=== PATIENT | male | born 1945 | race Caucasian/White ===

== ENCOUNTER 2019-09-25 20:00 | Outpatient (CLI) | payer MEDICARE, BC, SELFPAY | END 2019-09-25 20:01 | disposition home or self-care (01) | LOC: SLEEP 09-26 09:15 | PROVIDERS: Family Provider Electrodiagnostic Medicine; Visit Provider Anesthesiology Pain Medicine | DX: G47.33 Obstructive sleep apnea (adult) (pediatric) (principal) | CPT/HCPCS: 95810 ==

== ENCOUNTER 2019-10-02 09:01 | Outpatient (CLI) | payer MEDICARE, BC, SELFPAY ==
[2019-10-02 09:33] LABS: Basophils % 0.7 %; Eosinophils # 0.3 10^3/uL (0.0-0.8); Eosinophils % 4.9 %; Hematocrit 38.2 % (42.0-52.0); Hemoglobin 11.4 g/dL (11.7-16.6); Lymphocytes # 1.3 10^3/uL (0.8-4.8); Lymphocytes % 22.4 %; Mean Corpuscular HGB Conc 29.8 g/dL (30.0-36.0); Mean Corpuscular Hemoglobin 29.2 pg (28.0-34.0); Mean Corpuscular Volume 97.7 fL (80-94); Mean Platelet Volume 9.6 fL (7.4-10.4); Monocytes # 0.6 10^3/uL (0.2-0.9); Monocytes % 9.4 %; Neutrophils # 3.7 10^3/uL (1.8-7.7); Neutrophils % 62.3 %; Nucleated Red Blood Cells % 0 %; Platelet Count 239 10^3/cmm (130-400); Red Blood Count 3.91 10^6/uL (4.1-5.3); Red Cell Distribution Width 14.9 % (12.1-15.1); White Blood Count 5.9 10^3/uL (4.0-10.0)
[2019-10-02 09:45] LABS: Alanine Aminotransferase 21 U/L (0-41); Albumin Level 3.4 g/dL (3.5-5.2); Alkaline Phosphatase 94 IU/L (40-130); Anion Gap 14.5 (5-19); Aspartate Amino Transferase 19 U/L (0-40); Blood Urea Nitrogen 21 mg/dL (8-23); Carbon Dioxide 25 mmol/L (22-29); Chloride 102 mmol/L (98-107); Globulin 3.5 g/dL (1.3-4.6); Glucose 78 mg/dL (74-106); Potassium 4.5 mmol/L (3.5-5.1); Sodium 137 mmol/L (136-145); Total Bilirubin 0.4 mg/dL (0.15-1.2); Total Protein 6.9 g/dL (6.6-8.7)
== END 2019-10-02 09:02 | disposition home or self-care (01) ==
LOC: ONCMED 09:10
PROVIDERS: Family Provider Electrodiagnostic Medicine; PCP Internal Medicine Cardiovascular Disease; Visit Provider Internal Medicine Hematology & Oncology
DX: C73 Malignant neoplasm of thyroid gland (principal)
CPT/HCPCS: 36415; 80053; 85025

== ENCOUNTER 2019-10-17 20:01 | Outpatient (CLI) | payer MEDICARE, BC, SELFPAY | END 2019-10-17 21:00 | disposition home or self-care (01) | LOC: SLEEP 05-07 11:25 | PROVIDERS: PCP Electrodiagnostic Medicine; Visit Provider Anesthesiology Pain Medicine | DX: G47.33 Obstructive sleep apnea (adult) (pediatric) (principal) | CPT/HCPCS: 95810 ==

== ENCOUNTER 2019-11-03 14:34 | Outpatient (CLI) | payer MEDICARE, BC, SELFPAY ==
--- NOTE | 2019-11-03 14:38 | USCV_ITS ---
Abdullahi Maurice Age: 73 Gender: M : 1945 Exam Date: 11/03/2019 14:54 Ordering Phys: Jacob Barnes XX Technologist: Yaa Armstrong Exam Location: [facility] [place] Indication: CHF BP: / HR: 69 Rhythm: PACED Technical Quality: Technically difficult study MEASUREMENTS (Male / Female) Normal Values 2D ECHO LV Diastolic Diameter PLAX 2.9 cm 4.2 - 5.9 / 3.9 - 5.3 cm LV Systolic Diameter PLAX 2.3 cm LV Chamber Size 3.8 cm IVS Diastolic Thickness 1.7 cm 0.6 - 1.0 / 0.6 - 0.9 cm IVS Systolic Thickness 1.9 cm LVPW Diastolic Thickness 1.3 cm 0.6 - 1.0 / 0.6 - 0.9 cm LVPW Systolic Thickness 1.5 cm RV Chamber Size 4.7 cm LVOT Diameter 2.0 cm LV Ejection Fraction 2D Teich 43.2 % LV Ejection Fraction MOD 2C 57.3 % LV Ejection Fraction 2C AL 62.8 % LA Diameter 5.0 cm LA Width 3.4 cm LA Height 5.9 cm RA Width 5.2 cm RA Height 6.0 cm Aorta at Sinotubular Diameter 3.5 cm M-MODE LV Diastolic Diameter MM 5.2 cm 4.2 - 5.9 / 3.9 - 5.3 cm LV Systolic Diameter MM 3.5 cm LV Ejection Fraction MM Teich 62.1 % IVS Diastolic Thickness MM 1.2 cm 0.6 - 1.0 / 0.6 - 0.9 cm IVS Systolic Thickness MM 1.9 cm LVPW Diastolic Thickness MM 1.5 cm 0.6 - 1.0 / 0.6 - 0.9 cm LVPW Systolic Thickness MM 2.1 cm RV Diastolic Diameter MM 1.8 cm Aortic Annulus Diameter 4.0 cm LA Ao Ratio MM 1.2 MV E Point Septal Separation 0.3 cm DOPPLER AV Peak Velocity 136.0 cm/s LVOT Peak Velocity 80.0 cm/s AV Area Cont Eq vti 1.9 cm squared AV Area Cont Eq pk 1.9 cm squared MV Area PHT 4.4 cm squared Mitral E to A Ratio 3.5 MV E' Velocity 19.0 cm/s Mitral E to MV E' Ratio 7.5 Mitral E to LV E' Lateral Ratio 6.3 Mitral E to LV E' Septal Ratio 9.2 TR Peak Velocity 219.1 cm/s TR Peak Gradient 19.2 mmHg TR Mean Velocity 154.7 cm/s TR Mean Gradient 10.9 mmHg TR Velocity Time Integral 49.0 cm TV Peak E Velocity 97.0 cm/s Right Atrial Pressure 3.0 mmHg Pulmonary Artery Systolic Pressu 22.2 mmHg PV Peak Velocity 60.0 cm/s RV Acceleration Time 0.1 s RV Ejection Time 0.3 s RV AcT/ET 0.4 FINDINGS Left Ventricle Study is poor in quality and difficult. The ventricle is likely normal in size. No obvious wall motion disturbances are noted but visualization is poor. There may be some septal dyssynergy secondary to the underlying bundle branch block rhythm. A rough estimate of the ejection fraction would be 50 to 55%. There is likely grade 2 diastolic dysfunction. Right Ventricle Normal right ventricular size and systolic function. Normal right ventricular systolic pressure. Right Atrium Moderately increased right atrial size. Left Atrium Moderately increased left atrial size. Mitral Valve Mitral valve not well visualized. Aortic Valve Aortic valve not well visualized. Tricuspid Valve Tricuspid valve not well visualized. Pulmonic Valve Pulmonic valve not well visualized. Pericardium Normal pericardium without effusion. Aorta Normal ascending aorta dimension. CONCLUSIONS Study is poor in quality and difficult. The ventricle is likely normal in size. No obvious wall motion disturbances are noted but visualization is poor. There may be some septal dyssynergy secondary to the underlying bundle branch block rhythm. A rough estimate of the ejection fraction would be 50 to 55%. There is likely grade 2 diastolic dysfunction. Moderately increased right atrial size. Moderately increased left atrial size. Previous study was 10 months ago. The study compares favorably. There have been no significant changes. Dr. Pedro Winters MD (Electronically Signed) Final Date: 03 November 2019 18:05 S
== END 2019-11-03 14:35 | disposition home or self-care (01) ==
LOC: US 14:35
PROVIDERS: Family Provider Electrodiagnostic Medicine; PCP Electrodiagnostic Medicine; Visit Provider Electrodiagnostic Medicine
DX: N18.3 Chronic kidney disease, stage 3 (moderate) (principal); I50.31 Acute diastolic (congestive) heart failure; G93.40 Encephalopathy, unspecified; Z85.850 Personal history of malignant neoplasm of thyroid
CPT/HCPCS: 93306

== ENCOUNTER 2019-11-10 16:37 | Outpatient (CLI) | payer MEDICARE, BC, SELFPAY ==
[2019-11-10 18:16] LABS: Urine Appearance Clear (CLEAR); Urine Color Yellow (Yellow)
[2019-11-10 18:17] LABS: Add Urine Culture? Yes; Add Urine Microscopic? YES; Bacteria Urine 1+; Bilirubin Urine Neg (NEGATIVE); Blood Urine 3+ (Negative); Glucose Urine UA Norm (Normal); Ketones Urine Negative (Negative); Leukocyte Esterase Urine Negative (Negative); Nitrate Urine Negative (Negative); Protein Urine Neg (Negative); RBC Urine >100 /hpf (0-2); Urobilinogen Urine Norm (Negative); pH Urine 5 (5-7)
== END 2019-11-10 16:38 | disposition home or self-care (01) ==
LOC: LAB 16:41
PROVIDERS: Family Provider Electrodiagnostic Medicine; PCP Electrodiagnostic Medicine; Visit Provider Electrodiagnostic Medicine
DX: N39.0 Urinary tract infection, site not specified (principal)
CPT/HCPCS: 81001; 87086

== ENCOUNTER 2019-11-11 00:50 | Inpatient (IN) | payer MEDICARE, BC, SELFPAY ==
[2019-11-11] VITALS (19 sets, daily range): BP systolic 109–143; BP diastolic 63–87; PULSE 66–100; RESP 15–25; TEMP 36.6–37; O2SAT 90–97; BMI 38.0
--- NOTE | 2019-11-11 01:20 | XR_ITS ---
WS: [id number] XR chest 1V portable [id number] REASON FOR EXAM: ams FINDINGS: The dual electrode pacemaker is unchanged in position electrodes are normal. The left lower lung shows low-grade atelectasis with probable low-grade pneumonia. There is postop changes along the apex of the lung and midline in the upper lung garcia. The heart and mediastinum essentially normal. XR/XR chest 1V portable [id number] IMPRESSION: Atelectasis low-grade pneumonia left lower lung. Dual electrode pacemaker Postop changes along the apex and upper mediastinum.
[2019-11-11] MEDS: sodium chloride 0.9% 1,000 ML 999 ML IV (01:35)
[2019-11-11 01:46] LABS: Basophils % 0.5 %; Eosinophils # 0.4 10^3/uL (0.0-0.8); Eosinophils % 4.9 %; Hematocrit 35.7 % (42.0-52.0); Hemoglobin 10.9 g/dL (11.7-16.6); Lymphocytes # 1.2 10^3/uL (0.8-4.8); Lymphocytes % 14.1 %; Mean Corpuscular HGB Conc 30.5 g/dL (30.0-36.0); Mean Corpuscular Hemoglobin 29.5 pg (28.0-34.0); Mean Corpuscular Volume 96.5 fL (80-94); Mean Platelet Volume 10.4 fL (7.4-10.4); Monocytes # 0.7 10^3/uL (0.2-0.9); Monocytes % 8.7 %; Neutrophils # 5.8 10^3/uL (1.8-7.7); Neutrophils % 71.4 %; Nucleated Red Blood Cells % 0 %; Platelet Count 291 10^3/cmm (130-400); Red Cell Distribution Width 15.3 % (12.1-15.1); White Blood Count 8.2 10^3/uL (4.0-10.0)
[2019-11-11 01:59] LABS: Add Urine Microscopic? YES; Bilirubin Urine Neg (NEGATIVE); Blood Urine Neg (Negative); Glucose Urine UA Norm (Normal); Ketones Urine Negative (Negative); Leukocyte Esterase Urine Negative (Negative); Nitrate Urine Negative (Negative); Protein Urine Neg (Negative); Specific Gravity, Urine 1.025 (1.005-1.030); Urine Color Yellow (Yellow); Urobilinogen Urine Norm (Negative); pH Urine 5 (5-7)
[2019-11-11 02:00] LABS: Lactate (Lactic Acid level) 0.9 mmol/L (0.5-2.2)
[2019-11-11 02:01] LABS: Alanine Aminotransferase 17 U/L (0-41); Albumin Level 3.4 g/dL (3.5-5.2); Alkaline Phosphatase 92 IU/L (40-130); Anion Gap 13.4 (5-19); Aspartate Amino Transferase 21 U/L (0-40); Blood Urea Nitrogen 20 mg/dL (8-23); C Reactive Protein 26.4 mg/L (0.0-4.9); Calcium 8.9 mg/dL (8.5-10.5); Carbon Dioxide 25 mmol/L (22-29); Chloride 103 mmol/L (98-107); Globulin 3.6 g/dL (1.3-4.6); Glucose 127 mg/dL (65-115); Potassium 4.4 mmol/L (3.5-5.1); Sodium 137 mmol/L (136-145); Total Bilirubin 0.5 mg/dL (0.15-1.2)
--- NOTE | 2019-11-11 02:02 | ED_ITS ---
Entered by Aleksandra Gasca, acting as scribe for Nov 11, 2019 00:50 HPI - Weakness General: Chief complaint: Weakness Stated complaint: AMS Time Seen by Provider: 11/11/19 01:22 Mode of arrival: EMS Limitations: no limitations History of Present Illness: HPI Narrative: 73 yo m came to the er by Ems For altered mental status and weakness. Pt states that he thinks that he has a bad cold. Pt has had a fever on and off, cough, and weakness. Pt states that he has had weakness that started yesterday morning. He states that he fell about 3 days ago. Pt also has an abd hernia. Complaint: generalized weakness Onset (ago): day(s) (1 day ago) Duration: constant Location: generalized Migration: none Severity: mild Relieving factors: none Exacerbating factors: none Associated symptoms: Reports chest pain, chills, confusion and fever(s); Denies dark stools, dysuria, nausea or vomiting Review of Systems General: Reports: other (negative unless marked) Const: Reports: fever and chills Eyes: Denies: change in vision or blurry vision ENMT: Reports: painful swallowing and post nasal drip; Denies: swelling of lips/tongue, bleeding gums, dental pain, Change in hearing, nose bleeds or facial/sinus pain Card: Reports: chest pain, edema and shortness of breath on exertion; Denies: palpitations, irregular heart rhythm or shortness of breath when lying down Resp: Reports: non-productive cough GI: Denies: abdominal pain, nausea, vomiting, rectal pain, blood in stool or black tarry stool : Denies: difficulty urinating, painful urination, urinary frequency, urinary urgency or blood in urine Musc: Reports: back pain; Denies: redness or joint warmth Skin/Breast: Denies: rash, itching or redness Neuro: Reports: confusion Psych: Denies: anxiety PFSH ED PFSH: Medical History (Updated 11/11/19 @ 15:08 by Master Begum MD) Chronic anemia CKD (chronic kidney disease) Diastolic heart failure Erectile dysfunction Fatigue History of ESBL E. coli infection History of thyroid cancer Hypertension Hypothyroidism Lower urinary tract symptoms Morbid obesity Obstructive sleep apnea Pacemaker Prostate cancer Recurrent UTI Urinary incontinence Urolithiasis Surgical History (Updated 11/11/19 @ 07:57 by Jessica Martines MD) History of gastric bypass History of parathyroidectomy History of spinal surgery MULTIPLE LOWER SPINE SURGERY History of thyroidectomy Hx of tonsillectomy Family History (Updated 11/02/19 @ 08:11 by Elsa Delgado LPN) Sister Cancer Father , at age 73 CAD (coronary artery disease) Mother , at age 76 Alzheimer's dementia Social History (Updated 10/24/19 @ 09:50 by FLOYD Franklin) Smoking and tobacco status: former smoker Alcohol intake: unknown Adopted: No Caregiver/support person: No Lives independently: No Household members: spouse Marital status: Current occupational status: retired Physical Exam Const: GENERAL APPEARANCE: well developed ORIENTATION/CONSCIOUSNESS: Yes oriented to person, Yes oriented to place and Yes oriented to time HENMT: COMMON NORMALS: normocephalic, external ears normal and external nose normal HEAD & SCALP: normocephalic; no scalp tenderness FACE & SINUS: normal facial exam NOSE: external nose normal and no nasal discharge EXTERNAL EAR: Yes external ears normal MOUTH: tongue normal THROAT: posterior oropharynx not normal and no peritonsillar mass Eye: COMMON NORMALS: PERRL, EOMs intact bilaterally and conjunctivae normal EYELID: eyelids normal CONJUNCTIVA: Yes conjunctivae normal PUPIL: Yes PERRL Neck/C-Spine: COMMON NORMALS: full ROM GENERAL: No tracheal deviation CERVICAL SPINE: Yes normal cervical lordosis and No cervical spine tenderness Chest: COMMONS NORMALS: inspection of chest normal CHEST: No tenderness Resp: COMMON NORMALS: clear to auscultation bilaterally EFFORT & INSPECTION: No tachypneic, No respiratory distress, No retractions, No uses accessory muscles and No tracheal deviation AUSCULTATION: clear to auscultation bilaterally, no rhonchi, no wheezes and lung sounds not diminished Cardio: COMMON NORMALS: regular rate and regular rhythm RATE: regular rate RHYTHM: regular rhythm HEART SOUNDS: no murmurs PERIPHERAL PULSES: radial pulses present GI: INSPECTION: No abdominal distension AUSCULTATION: No hyperactive bowel sounds and No hypoactive bowel sounds PALPATION: No guarding and No rigid PERCUSSION: no dullness to percussion and no tympanic to percussion : COMMON NORMALS: No no CVA tenderness BLADDER/KIDNEY EXAM: No no CVA tenderness Back/Pelvis: COMMON NORMALS: negative for no CVA tenderness Neuro: SENSORIUM/ORIENTATION: Yes oriented to person, Yes oriented to place and Yes oriented to time Psych: COMMON NORMALS: mental status grossly normal Skin: COMMON NORMALS: no rashes or lesions noted GENERAL SKIN EXAM: no rashes or lesions noted Course Vital Signs: Vital signs: Vital Signs Temperature 98.3 F 11/11/19 20:00 Pulse Rate 70 11/11/19 20:00 Respiratory Rate 15 11/11/19 20:00 Blood Pressure 134/75 11/11/19 20:00 Pulse Oximetry 92 11/11/19 20:00 MDM - Weakness MDM Narrative: Medical decision making narrative: Will be admitted for heart failure with hypoxic respiratory failure and generalized weakness Lab Data: Labs: Lab Results 11/11/19 11/11/19 11/11/19 Range/Units 01:13 01:13 01:13 WBC 8.2 (4.0-10.0) 10^3/ uL RBC 3.70 L (4.1-5.3) 10^6/u L Hgb 10.9 L (11.7-16.6) g/dL Hct 35.7 L (42.0-52.0) % MCV 96.5 H (80-94) fL MCH 29.5 (28.0-34.0) pg MCHC 30.5 (30.0-36.0) g/dL RDW 15.3 H (12.1-15.1) % Plt Count 291 (130-400) 10^3/c mm MPV 10.4 (7.4-10.4) fL Neut % (Auto) 71.4 % Lymph % (Auto) 14.1 % Daniels % (Auto) 8.7 % Eos % (Auto) 4.9 % Baso % (Auto) 0.5 % Neut # (Auto) 5.8 (1.8-7.7) 10^3/u L Lymph # (Auto) 1.2 (0.8-4.8) 10^3/u L Daniels # (Auto) 0.7 (0.2-0.9) 10^3/u L Eos # (Auto) 0.4 (0.0-0.8) 10^3/u L Baso # (Auto) 0.0 (0.0-0.1) 10^3/u L Nucleated RBC % (a uto) 0 % Nucleated RBCs # 0.0 /100WBC Specimen Type Sample Site ABG pH (7.35-7.45) ABG pCO2 (35-45) mmHg ABG pO2 (80.0-100.0) mmH g ABG HCO3 (22-26) mmol/L ABG Base Excess (-2.0-2.0) mmol/ L Shalom Test Hematocrit (42-52) % O2 Delivery Device Control Clerk Head ID Sodium 137 (136-145) mmol/L Potassium 4.4 (3.5-5.1) mmol/L Chloride 103 (98-107) mmol/L Carbon Dioxide 25 (22-29) mmol/L Anion Gap 13.4 (5-19) BUN 20 (8-23) mg/dL Creatinine 1.0 (0.7-1.2) mg/dL Glucose 127 H (65-115) mg/dL Lactate 0.9 (0.5-2.2) mmol/L Calcium 8.9 (8.5-10.5) mg/dL Iron (59-158) ug/dL TIBC mcg/dl % Saturation (20-50) % Unsat Iron Binding (112-347) ug/dL Total Bilirubin 0.5 (0.15-1.2) mg/dL AST 21 (0-40) U/L ALT 17 (0-41) U/L Alkaline Phosphata se 92 (40-130) IU/L Ammonia (16-60) umol/L Creatine Kinase (39-308) U/L C-Reactive Protein 26.4 H (0.0-4.9) mg/L NT-Pro-B Natriuret Pep (0-125) pg/mL Total Protein 7.0 (6.6-8.7) g/dL Albumin 3.4 L (3.5-5.2) g/dL Globulin 3.6 (1.3-4.6) g/dL Procalcitonin (0-0.5) ng/mL Urine Color (Yellow) Urine Appearance (CLEAR) Urine pH (5-7) Ur Specific Gravit y (1.005-1.030) Urine Protein (Negative) Urine Glucose (UA) (Normal) Urine Ketones (Negative) Urine Blood (Negative) Urine Nitrate (Negative) Urine Bilirubin (NEGATIVE) Urine Urobilinogen (Negative) mg/dL Ur Leukocyte Kierra ase (Negative) Digoxin (0.6-1.2) ng/mL Ethyl Alcohol (0-10) mg/dL Influenza Type A A g (Negative) POC Influenza B Ag (Negative) 11/11/19 11/11/19 11/11/19 Range/Units 01:13 01:13 01:13 WBC (4.0-10.0) 10^3/ uL RBC (4.1-5.3) 10^6/u L Hgb (11.7-16.6) g/dL Hct (42.0-52.0) % MCV (80-94) fL MCH (28.0-34.0) pg MCHC (30.0-36.0) g/dL RDW (12.1-15.1) % Plt Count (130-400) 10^3/c mm MPV (7.4-10.4) fL Neut % (Auto) % Lymph % (Auto) % Daniels % (Auto) % Eos % (Auto) % Baso % (Auto) % Neut # (Auto) (1.8-7.7) 10^3/u L Lymph # (Auto) (0.8-4.8) 10^3/u L Daniels # (Auto) (0.2-0.9) 10^3/u L Eos # (Auto) (0.0-0.8) 10^3/u L Baso # (Auto) (0.0-0.1) 10^3/u L Nucleated RBC % (a uto) % Nucleated RBCs # /100WBC Specimen Type Sample Site ABG pH (7.35-7.45) ABG pCO2 (35-45) mmHg ABG pO2 (80.0-100.0) mmH g ABG HCO3 (22-26) mmol/L ABG Base Excess (-2.0-2.0) mmol/ L Shalom Test Hematocrit (42-52) % O2 Delivery Device Control Clerk Head ID Sodium (136-145) mmol/L Potassium (3.5-5.1) mmol/L Chloride (98-107) mmol/L Carbon Dioxide (22-29) mmol/L Anion Gap (5-19) BUN (8-23) mg/dL Creatinine (0.7-1.2) mg/dL Glucose (65-115) mg/dL Lactate (0.5-2.2) mmol/L Calcium (8.5-10.5) mg/dL Iron 26 L (59-158) ug/dL TIBC 204 mcg/dl % Saturation 12.7 L (20-50) % Unsat Iron Binding 178 (112-347) ug/dL Total Bilirubin (0.15-1.2) mg/dL AST (0-40) U/L ALT (0-41) U/L Alkaline Phosphata se (40-130) IU/L Ammonia (16-60) umol/L Creatine Kinase (39-308) U/L C-Reactive Protein (0.0-4.9) mg/L NT-Pro-B Natriuret Pep 1633 H (0-125) pg/mL Total Protein (6.6-8.7) g/dL Albumin (3.5-5.2) g/dL Globulin (1.3-4.6) g/dL Procalcitonin 0.03 (0-0.5) ng/mL Urine Color Yellow (Yellow) Urine Appearance Sl cloudy A (CLEAR) Urine pH 5 (5-7) Ur Specific Gravit y 1.025 (1.005-1.030) Urine Protein Neg (Negative) Urine Glucose (UA) Norm (Normal) Urine Ketones Negative (Negative) Urine Blood Neg (Negative) Urine Nitrate Negative (Negative) Urine Bilirubin Neg (NEGATIVE) Urine Urobilinogen Norm (Negative) mg/dL Ur Leukocyte Kierra ase Negative (Negative) Digoxin (0.6-1.2) ng/mL Ethyl Alcohol (0-10) mg/dL Influenza Type A A g (Negative) POC Influenza B Ag (Negative) 11/11/19 11/11/19 11/11/19 Range/Units 01:13 01:55 02:46 WBC (4.0-10.0) 10^3/ uL RBC (4.1-5.3) 10^6/u L Hgb (11.7-16.6) g/dL Hct (42.0-52.0) % MCV (80-94) fL MCH (28.0-34.0) pg MCHC (30.0-36.0) g/dL RDW (12.1-15.1) % Plt Count (130-400) 10^3/c mm MPV (7.4-10.4) fL Neut % (Auto) % Lymph % (Auto) % Daniels % (Auto) % Eos % (Auto) % Baso % (Auto) % Neut # (Auto) (1.8-7.7) 10^3/u L Lymph # (Auto) (0.8-4.8) 10^3/u L Daniels # (Auto) (0.2-0.9) 10^3/u L Eos # (Auto) (0.0-0.8) 10^3/u L Baso # (Auto) (0.0-0.1) 10^3/u L Nucleated RBC % (a uto) % Nucleated RBCs # /100WBC Specimen Type Arterial Sample Site Brachial, right ABG pH 7.38 (7.35-7.45) ABG pCO2 43.1 (35-45) mmHg ABG pO2 63.1 L (80.0-100.0) mmH g ABG HCO3 25.6 (22-26) mmol/L ABG Base Excess 0.4 (-2.0-2.0) mmol/ L Shalom Test Pos Hematocrit 32.9 L (42-52) % O2 Delivery Device Room air Control Clerk Head ID [email or web address] Sodium (136-145) mmol/L Potassium (3.5-5.1) mmol/L Chloride (98-107) mmol/L Carbon Dioxide (22-29) mmol/L Anion Gap (5-19) BUN (8-23) mg/dL Creatinine (0.7-1.2) mg/dL Glucose (65-115) mg/dL Lactate (0.5-2.2) mmol/L Calcium (8.5-10.5) mg/dL Iron (59-158) ug/dL TIBC mcg/dl % Saturation (20-50) % Unsat Iron Binding (112-347) ug/dL Total Bilirubin (0.15-1.2) mg/dL AST (0-40) U/L ALT (0-41) U/L Alkaline Phosphata se (40-130) IU/L Ammonia 29 (16-60) umol/L Creatine Kinase 135 (39-308) U/L C-Reactive Protein (0.0-4.9) mg/L NT-Pro-B Natriuret Pep (0-125) pg/mL Total Protein (6.6-8.7) g/dL Albumin (3.5-5.2) g/dL Globulin (1.3-4.6) g/dL Procalcitonin (0-0.5) ng/mL Urine Color (Yellow) Urine Appearance (CLEAR) Urine pH (5-7) Ur Specific Gravit y (1.005-1.030) Urine Protein (Negative) Urine Glucose (UA) (Normal) Urine Ketones (Negative) Urine Blood (Negative) Urine Nitrate (Negative) Urine Bilirubin (NEGATIVE) Urine Urobilinogen (Negative) mg/dL Ur Leukocyte Kierra ase (Negative) Digoxin 0.6 (0.6-1.2) ng/mL Ethyl Alcohol < 10 (0-10) mg/dL Influenza Type A A g (Negative) POC Influenza B Ag (Negative) 11/11/19 Range/Units 03:05 WBC (4.0-10.0) 10^3/ uL RBC (4.1-5.3) 10^6/u L Hgb (11.7-16.6) g/dL Hct (42.0-52.0) % MCV (80-94) fL MCH (28.0-34.0) pg MCHC (30.0-36.0) g/dL RDW (12.1-15.1) % Plt Count (130-400) 10^3/c mm MPV (7.4-10.4) fL Neut % (Auto) % Lymph % (Auto) % Daniels % (Auto) % Eos % (Auto) % Baso % (Auto) % Neut # (Auto) (1.8-7.7) 10^3/u L Lymph # (Auto) (0.8-4.8) 10^3/u L Daniels # (Auto) (0.2-0.9) 10^3/u L Eos # (Auto) (0.0-0.8) 10^3/u L Baso # (Auto) (0.0-0.1) 10^3/u L Nucleated RBC % (a uto) % Nucleated RBCs # /100WBC Specimen Type Sample Site ABG pH (7.35-7.45) ABG pCO2 (35-45) mmHg ABG pO2 (80.0-100.0) mmH g ABG HCO3 (22-26) mmol/L ABG Base Excess (-2.0-2.0) mmol/ L Shalom Test Hematocrit (42-52) % O2 Delivery Device Control Clerk Head ID Sodium (136-145) mmol/L Potassium (3.5-5.1) mmol/L Chloride (98-107) mmol/L Carbon Dioxide (22-29) mmol/L Anion Gap (5-19) BUN (8-23) mg/dL Creatinine (0.7-1.2) mg/dL Glucose (65-115) mg/dL Lactate (0.5-2.2) mmol/L Calcium (8.5-10.5) mg/dL Iron (59-158) ug/dL TIBC mcg/dl % Saturation (20-50) % Unsat Iron Binding (112-347) ug/dL Total Bilirubin (0.15-1.2) mg/dL AST (0-40) U/L ALT (0-41) U/L Alkaline Phosphata se (40-130) IU/L Ammonia (16-60) umol/L Creatine Kinase (39-308) U/L C-Reactive Protein (0.0-4.9) mg/L NT-Pro-B Natriuret Pep (0-125) pg/mL Total Protein (6.6-8.7) g/dL Albumin (3.5-5.2) g/dL Globulin (1.3-4.6) g/dL Procalcitonin (0-0.5) ng/mL Urine Color (Yellow) Urine Appearance (CLEAR) Urine pH (5-7) Ur Specific Gravit y (1.005-1.030) Urine Protein (Negative) Urine Glucose (UA) (Normal) Urine Ketones (Negative) Urine Blood (Negative) Urine Nitrate (Negative) Urine Bilirubin (NEGATIVE) Urine Urobilinogen (Negative) mg/dL Ur Leukocyte Kierra ase (Negative) Digoxin (0.6-1.2) ng/mL Ethyl Alcohol (0-10) mg/dL Influenza Type A A g Negative (Negative) POC Influenza B Ag Negative (Negative) Discharge Plan Discharge Patient Disposition: Admitted As Inpatient Admit Provider: Jessica Martines Condition: Stable Discharge Date/Time: 11/11/19 05:37 Coding Level of Care Code ED Well Reactivator Operator for Lavern Fwmichelle The documentation recorded by the [facility] Stephanie Lyn, accurately reflects the service I personally performed and the decisions made by Bo jorgensen Jeremy John, DO Nov 11, 2019 00:50
[2019-11-11 02:29] LABS: Ammonia 29 umol/L (16-60)
[2019-11-11 02:57] LABS: ABG PCO2 43.1 mmHg (35-45); ABG PH Result 7.38 (7.35-7.45); Arterial Blood Gas Hematocrit 32.9 % (42-52); Base Excess ABG 0.4 mmol/L (-2.0-2.0); Blood Gas Allen Test Pos; Blood Gas Sample Site Brachial, right; Blood Gas Sample Type Arterial; HCO3 ABG 25.6 mmol/L (22-26); Oxygen Device ROOM AIR; PO2 ABG 63.1 mmHg (80.0-100.0)
[2019-11-11 03:13] LABS: NT Pro B Type Natriuretic Pept 1633 pg/mL (0-125)
[2019-11-11 03:47] LABS: Influenza A by IFA Negative (Negative); Influenza B by IFA Negative (Negative)
--- NOTE | 2019-11-11 06:12 | PC.NURSE ---
Patient arrived from the emergency department, accompanied by spouse at this time. Patient is tired and states, I cannot walk at this time Patient arrives with pardo catheter, dark yellow urine in collection bag. Patient has bruising on the left buttocks and spouse states, that was there from previous fall small scratch to right great toe from previous fall. Patient is able to answer questions but appears to be tired. Respirations even and non-labored. Will continue care for patient at this time. esthetician facialist assessment completed per flow sheet. Call light within reach. Care continued.
[2019-11-11] MEDS: FUROsemide 10 mg/mL SDV 4mL 40 MG IVP ×2 (06:30→17:40)
--- NOTE | 2019-11-11 06:33 | PM.HP ---
Providers/Chief Complaint Admitting Physician: Jessica Martines MD Primary Care Provider: Jacob Valladares DO Chief Complaint: AMS History of Present Illness Abdullahi Maurice is a 73 year old male history of non-Hodgkin lymphoma diagnosed in 2010 in remission, Medullary thyroid carcinoma s/p thyroidectomy/cervical lymphadenopathy, h/o gastric bypass for weight loss, pancreatic mass, HTN, cardiomyopathy, s/p PPM, CHF (EF 50-55%, gr2 diastolic dysfunction), recently diagnosed severe PAOLA with nocturnal hypoxemia, presented today with increased generalized weakness over the past 3 days with inability to gte out of bed. States he has been too sick and weak to attempt getting out of bed. Also reports cough over the past 3 days with minimal white mucoid expectoration. No c/o fever. Reports running nose. He is a poor historian and it is very hard to get history from him. He keeps looking for his to provide history, however she is currently N/A at [facility] eto obtain information. No fever, 02 sat 91-94% on RA, ABG 7.38/43.1/43/25.6, BNP 1633 (previous 2700), negative UA, negative flu. received 40mg iv lasix. Denies urinary or bowel incontinence. Denies shortness of breath. States that he used supplemetal 02 at home yesterday which made him better better. Review of Systems General: Reports: 10 or more systems reviewed and unremarkable except in HPI and below Const: Denies: fever, chills or body aches Eyes: Denies: change in vision, blurry vision or photophobia ENMT: Reports: hoarseness; Denies: throat pain, enlarged tonsils, painful swallowing or nasal congestion Card: Denies: chest pain, palpitations, irregular heart rhythm, edema, swelling of feet/ankles, lightheadedness, pre-syncope, shortness of breath on exertion or shortness of breath when lying down Resp: Reports: non-productive cough; Denies: shortness of breath, productive cough, wheezing, stridor, pain on inspiration, change in phlegm color, coughing up blood or chest congestion GI: Denies: abdominal pain, nausea, vomiting, vomiting blood, coffee grounds in vomit, difficulty swallowing, heartburn/indigestion, diarrhea, constipation, cramping, change in stool character, blood in stool or black tarry stool : Denies: flank pain, painful urination, urinary frequency, urinary urgency, urinary hesitancy or blood in urine Musc: Denies: neck pain, back pain, extremity pain, joint swelling, joint warmth or deformity Neuro: Denies: headache, numbness in extremities, weakness in extremities, changes in sensation, difficulty walking, frequent falls, dizziness, vertigo, behavioral changes, slurred speech or seizure-like activity Psych: Denies: anxiety, depression, suicidal ideation or homicidal ideation Endo: Denies: excessive urination, excessive thirst, tired all the time, cold intolerance or hot flashes Sean/Lymph: Denies: easy bruising or easy bleeding Medications/Allergies Home Medications Medication Instructions Recorded Confirmed Last Taken Type alprazolam 1 mg PO BID PRN 11/11/19 11/11/19 11/10/19 06:00 History amlodipine 5 mg PO DAILY 11/11/19 11/11/19 11/10/19 History aspirin 81 mg PO DAILY 11/11/19 11/11/19 11/10/19 History cholecalciferol (vitamin D3) 125 mcg PO DAILY 11/11/19 11/11/19 11/10/19 History [Vitamin D3] ciprofloxacin HCl [Cipro] 500 mg PO BID 11/11/19 11/11/19 11/10/19 History duloxetine 60 mg PO DAILY 11/11/19 11/11/19 11/10/19 History gabapentin 800 mg PO QID 11/11/19 11/11/19 11/10/19 History levothyroxine [Synthroid] 125 mcg PO DAILY 11/11/19 11/11/19 11/10/19 History lisinopril 2.5 mg PO DAILY 11/11/19 11/11/19 11/10/19 History metoprolol succinate 150 mg PO BEDTIME 11/11/19 11/11/19 11/10/19 History oxycodone-acetaminophen 1 tab PO Q4H 11/11/19 11/11/19 11/10/19 History tamsulosin 0.4 mg PO BEDTIME 11/11/19 11/11/19 11/10/19 History Allergies Allergy/AdvReac Type Severity Reaction Status Date / Time Sulfa (Sulfonamide Allergy Unknown Verified 11/02/19 08:09 Antibiotics) PFSH Acute PFSH: Medical History (Updated 11/12/19 @ 09:15 by Master Begum MD) Chronic anemia CKD (chronic kidney disease) Diastolic heart failure Erectile dysfunction Fatigue History of ESBL E. coli infection History of thyroid cancer Hypertension Hypothyroidism Lower urinary tract symptoms Morbid obesity Obstructive sleep apnea Pacemaker Prostate cancer Recurrent UTI Urinary incontinence Urolithiasis Surgical History (Updated 11/11/19 @ 07:57 by Jessica Martines MD) History of gastric bypass History of parathyroidectomy History of spinal surgery MULTIPLE LOWER SPINE SURGERY History of thyroidectomy Hx of tonsillectomy Family History (Updated 11/02/19 @ 08:11 by Elsa Delgado LPN) Sister Cancer Father , at age 73 CAD (coronary artery disease) Mother , at age 76 Alzheimer's dementia Social History (Updated 10/24/19 @ 09:50 by FLOYD Franklin) Smoking and tobacco status: former smoker Alcohol intake: unknown Adopted: No Caregiver/support person: No Lives independently: No Household members: spouse Marital status: Current occupational status: retired Vitals/I&O/Wt Last Vital Signs Temp 98.6 F 11/11/19 05:36 Pulse 70 11/11/19 05:36 Resp 19 H 11/11/19 05:36 BP 109/63 11/11/19 05:36 Pulse Ox 91 11/11/19 05:36 11/10/19 11/10/19 11/11/19 14:59 22:59 06:59 Intake Total 1000 / 1000 Balance 1000 / 1000 Weight last 48 hrs Weight 141.521 kg Physical Exam Urinary Catheter Management^: Melendez: Cath Placed During This Visit: yes Urethral Indwelling: No Reason for Continuing Indwelling Catheter: Acute Urinary Retention or Obstruction Urinary Catheter Date of Insertion: 11/11/19 Urinary Catheter Time of Insertion: 00:53 Data : 11/12/19 03:59 11/12/19 03:59 Micro: Microbiology 11/11/19 01:38 Blood Culture - Preliminary Blood SPECIMEN COLLECTED 11/11/19 01:13 Blood Culture - Preliminary Blood SPECIMEN COLLECTED A&P Assessment and plan (1) Fatigue: Status: Acute Code(s): R53.83 - Other fatigue (2) Bronchitis: Status: Acute Code(s): J40 - Bronchitis, not specified as acute or chronic (3) Obstructive sleep apnea: Status: Acute Code(s): G47.33 - Obstructive sleep apnea (adult) (pediatric) (4) Diastolic heart failure: Status: Acute Code(s): I50.30 - Unspecified diastolic (congestive) heart failure (5) Hypertension: Status: Acute Code(s): I10 - Essential (primary) hypertension (6) History of thyroid cancer: Status: Acute Code(s): Z85.850 - Personal history of malignant neoplasm of thyroid (7) Hypothyroidism: Status: Acute Code(s): E03.9 - Hypothyroidism, unspecified (8) Morbid obesity: Status: Acute Code(s): E66.01 - Morbid (severe) obesity due to excess calories (9) Chronic anemia: Status: Acute Code(s): D64.9 - Anemia, unspecified (10) CKD (chronic kidney disease): Status: Acute Code(s): N18.9 - Chronic kidney disease, unspecified Additional A&P Information Fatigue/lethargy: Patient states he is dependent on CPAP for last 20 years but is not able to use it for last 7 days that the machine is not working well. Patient also endorses complaint of runny nose, postnasal drip after recent sick contact in his son-in-law along with sore throat. proBNP 1600 which is actually lesser than all his reported numbers in the past. Pro-Thomas negative. Ammonia levels negative. Patient has not had any fever, white count is normal, hemoglobin seems to be at his baseline. ABG done on admission showed mild hypoxia. Symptoms most likely seem due to bronchitis causing COPD exacerbation along with worsening obstructive sleep apnea as patient is not able to use his CPAP properly. DuoNebs every 6 hours Oxygen supplementation keeping saturation over 92%. CPAP at home setting overnight. Continue with ceftriaxone for now. We will get care coordination consult to get help with arranging CPAP as an outpatient. History of diastolic heart failure: Last echo done few months ago shows an EF of 5055% with grade 2 diastolic dysfunction. Patient seems euvolemic for now. Patient started on IV Lasix 40 mg twice daily. We will continue for now and will transfer to oral from tomorrow morning. Strict intake and output charting. Daily weights. Arrhythmia/post pacemaker: Continue with home dose of metoprolol and digoxin. Digoxin levels sent Hypertension: Blood pressures well acceptable. Continue with home dose of amlodipine and Lopressor. Hypothyroidism: History of thyroid cancer post thyroid and parathyroidectomy. Continue with home dose of levothyroxine. Will check TSH levels tomorrow morning. Continue chronic home medications like duloxetine, gabapentin at a lower dose of 400 4 times daily, methenamine, oxycodone 1 tab p.o. every 4 hours as needed. Cardiac diet. Full code. Lovenox for DVT prophylaxis. Famotidine for PUD prophylaxis. Attestations Medical Necessity Statement*: Admission for more than 2 midnights for COPD exacerbation Time Spent in Patient Care: Greater than 35 minutes Coding Level of Care Code Acute Construction Project Manager for [facility] Fwd Diagnoses Fatigue R53.83 Bronchitis J40 Obstructive sleep apnea G47.33 Diastolic heart failure I50.30 Hypertension I10 History of thyroid cancer Z85.850 Hypothyroidism E03.9 Morbid obesity E66.01 Chronic anemia D64.9 CKD (chronic kidney disease) N18.9
--- NOTE | 2019-11-11 07:58 | CTR_ITS ---
PROCEDURE INFORMATION: Exam: CT Head Without Contrast Exam date and time: 11/11/2019 8:40 AM Age: 73 years old Clinical indication: Weakness, extremity; Right; Additional info: Le weakness TECHNIQUE: Imaging protocol: Computed tomography of the head without contrast. Total DLP: 856.69 mGy-cm Radiation optimization: All CT scans at this facility use at least one of these dose optimization techniques: automated exposure control; mA and/or kV adjustment per patient size (includes targeted exams where dose is matched to clinical indication); or iterative reconstruction. COMPARISON: CT head wo con* [id number] 02/20/2019 12:22 AM FINDINGS: Brain: There is no acute intracranial hemorrhage. There is not appreciable microvascular disease. Gonzalez white differentiation is intact. There are no extra-axial fluid collections. No evidence of mass. There is no mass effect or midline shift. Ventricles: The ventricles and sulci are enlarged, consistent with volume loss / atrophy. No hydrocephalus. Bones/joints: No acute fracture. Sinuses: There is ccny-ae-ihnoyczd mucosal thickening in paranasal sinuses. Mastoid air cells: There is small amount of opacification in the left posterior mastoid air cells. Right mastoids are clear. Soft tissues: Unremarkable as visualized. Vasculature: There is vascular calcification. CT/CT head wo con* [id number] IMPRESSION: 1. No evidence of acute intracranial abnormality. No evidence of acute infarction, hemorrhage, or mass. 2. Mucosal sinus disease. Radiation Dose CTDIVOL = (mGy): DLP = 856.69 (mGy-cm)
[2019-11-11 08:56] LABS: Procalcitonin 0.03 ng/mL (0-0.5)
[2019-11-11 09:07] LABS: Iron 26 ug/dL (59-158); Percent Saturation 12.7 % (20-50); Total Iron Binding Capacity 204 mcg/dl; Unsaturated Iron Binding 178 ug/dL (112-347)
[2019-11-11 09:27] LABS: Creatine Phosphokinase 135 U/L (39-308); Digoxin 0.6 ng/mL (0.6-1.2)
[2019-11-11 09:38] LABS: Alcohol Level < 10 mg/dL (0-10)
[2019-11-11] MEDS: budesonide 0.5 mg/2 mL Neb INHALATION ×2 (10:01→21:50)
[2019-11-11] MEDS: ipratropium-albuterol 3 mL Neb INHALATION ×3 (10:01→21:50)
[2019-11-11 10:07] LABS: Amphetamines Screen Urine Negative (Negative); Barbiturates Screen Urine Negative (Negative); Benzodiazepines Screen Urine Negative (Negative); Cocaine Screen Urine Negative (Negative); Opiate Screen Urine Negative (Negative); PCP Screen Urine Negative (Negative); THC Screen Urine Negative (Negative)
[2019-11-11] MEDS: cefTRIAXone 1,000 MG in sodium chloride 0.9% (plus) 50 ML 100 MG IV (10:38)
--- NOTE | 2019-11-11 14:58 | CTR_ITS ---
PROCEDURE INFORMATION: Exam: CT Chest Without Contrast Exam date and time: 11/11/2019 3:30 PM Age: 73 years old Clinical indication: Shortness of breath; Prior surgery; Surgery date: 6+ months; Surgery type: Pacemaker; Additional info: Copd/pna TECHNIQUE: Imaging protocol: Computed tomography of the chest without contrast. Total DLP: 1046.35 mGy-cm Radiation optimization: All CT scans at this facility use at least one of these dose optimization techniques: automated exposure control; mA and/or kV adjustment per patient size (includes targeted exams where dose is matched to clinical indication); or iterative reconstruction. COMPARISON: CR XR chest 1V portable [id number] 11/11/2019 1:55 AM FINDINGS: Tubes, catheters and devices: A pacemaker device is present, and its leads are in appropriate position. Thyroid: Surgical clips from prior thyroidectomy. Lungs: There is stable linear atelectasis or scarring in left lower lobe. There are posterior infiltrate like opacities in right upper and lower lobes concerning for small areas of pneumonia. Lungs appear somewhat hyperexpanded. Pleural space: No pneumothorax. No pleural effusion. Heart: There are coronary artery calcifications. Heart is enlarged as before. No pericardial effusion. Aorta: Atherosclerotic change. No aortic aneurysm. Lymph nodes: Similar mediastinal lymph nodes which are nonspecific but nonenlarged. Some of lymph nodes are calcified consistent with granulomatous disease. Liver: There are calcified granulomas in liver and spleen. Spleen: There are surgical clips in the left upper abdomen at medial margin of the spleen. Stomach and bowel: There is prominent stool in transverse colon. Bones/joints: There are osseous degenerative changes and thoracic enthesophytes /findings of diffuse idiopathic skeletal hyperostosis. Soft tissues: Unremarkable. CT/CT chest con [id number] IMPRESSION: Mild posterior right pulmonary infiltrates concerning for pneumonia. Other findings as described. Radiation Dose CTDIVOL = (mGy): DLP = 1046.35 (mGy-cm)
--- NOTE | 2019-11-11 15:02 | PM.PN ---
Vitals/I&O/Wt Last Vital Signs Temp 97.9 F 11/11/19 11:27 Pulse 70 11/11/19 11:27 Resp 20 H 11/11/19 11:27 BP 143/81 11/11/19 11:27 Pulse Ox 90 11/11/19 11:27 11/11/19 11/11/19 11/11/19 06:59 14:59 22:59 Intake Total 1000 / 1000 3360 / 3360 Output Total 1450 / 1450 Balance 1000 / 1000 1910 / 1910 Weight last 48 hrs Weight 141.521 kg Weight 141.521 kg Physical Exam Narrative: EXAM NARRATIVE: General: No acute distress, AO x3, morbidly obese HEENT: PERRLA, pupils bilaterally equal and reactive Chest: Normal vesicular breath sounds, no added sounds, equal good air entry bilaterally CVS: S1-S2 regular, no murmurs, no tachycardia, no gallops, no rubs, no JVD Abdomen: Soft, nontender, no organomegaly, bowel sounds present Neuro: No focal deficits, no facial deformity, AO x3, power 5/5 in all limbs Urinary Catheter Management^: Melendez: Cath Placed During This Visit: yes Urethral Indwelling: No Reason for Continuing Indwelling Catheter: Acute Urinary Retention or Obstruction Urinary Catheter Date of Insertion: 11/11/19 Urinary Catheter Time of Insertion: 00:53 Data : 11/11/19 01:13 11/11/19 01:13 Micro: Microbiology 11/11/19 01:38 Blood Culture - Preliminary Blood SPECIMEN COLLECTED 11/11/19 01:13 Blood Culture - Preliminary Blood SPECIMEN COLLECTED A&P Assessment and plan (1) Fatigue: Status: Acute Code(s): R53.83 - Other fatigue (2) Bronchitis: Status: Acute Code(s): J40 - Bronchitis, not specified as acute or chronic (3) Obstructive sleep apnea: Status: Acute Code(s): G47.33 - Obstructive sleep apnea (adult) (pediatric) (4) Diastolic heart failure: Status: Acute Code(s): I50.30 - Unspecified diastolic (congestive) heart failure (5) Hypertension: Status: Acute Code(s): I10 - Essential (primary) hypertension (6) History of thyroid cancer: Status: Acute Code(s): Z85.850 - Personal history of malignant neoplasm of thyroid (7) Hypothyroidism: Status: Acute Code(s): E03.9 - Hypothyroidism, unspecified (8) Morbid obesity: Status: Acute Code(s): E66.01 - Morbid (severe) obesity due to excess calories (9) Chronic anemia: Status: Acute Code(s): D64.9 - Anemia, unspecified (10) CKD (chronic kidney disease): Status: Acute Code(s): N18.9 - Chronic kidney disease, unspecified Additional A&P Information Fatigue/lethargy: Patient states he is dependent on CPAP for last 20 years but is not able to use it for last 7 days that the machine is not working well. Patient also endorses complaint of runny nose, postnasal drip after recent sick contact in his son-in-law along with sore throat. proBNP 1600 which is actually lesser than all his reported numbers in the past. Pro-Thomas negative. Ammonia levels negative. Patient has not had any fever, white count is normal, hemoglobin seems to be at his baseline. ABG done on admission showed mild hypoxia. Symptoms most likely seem due to bronchitis causing COPD exacerbation along with worsening obstructive sleep apnea as patient is not able to use his CPAP properly. We will start patient on Flonase for symptomatic treatment along with Tessalon Perles as needed. DuoNebs every 6 hours, budesonide twice daily. Oxygen supplementation keeping saturation over 92%. CPAP at home setting overnight. We will do CT chest without contrast to rule out any pneumonic patch even though chances of him having pneumonia is very less. Patient endorses of having severe pneumonia couple of months ago. Continue with ceftriaxone for now. MRSA swab, Legionella urine antigen awaited. We will get care coordination consult to get help with arranging CPAP as an outpatient. History of diastolic heart failure: Last echo done few months ago shows an EF of 5055% with grade 2 diastolic dysfunction. Patient seems euvolemic for now. Patient started on IV Lasix 40 mg twice daily. We will continue for now and will transfer to oral from tomorrow morning. Strict intake and output charting. Daily weights. Arrhythmia/post pacemaker: Continue with home dose of metoprolol and digoxin. Digoxin levels on admission stable. Hypertension: Blood pressures well acceptable. Continue with home dose of amlodipine and Lopressor. Hypothyroidism: History of thyroid cancer post thyroid and parathyroidectomy. Continue with home dose of levothyroxine. Will check TSH levels tomorrow morning. Continue chronic home medications like duloxetine, gabapentin at a lower dose of 400 4 times daily, methenamine, oxycodone 1 tab p.o. every 4 hours as needed. Cardiac diet. Full code. Lovenox for DVT prophylaxis. Famotidine for PUD prophylaxis. Attestations Medical Necessity Statement*: For management of acute bronchitis, COPD exacerbation Time Spent in Patient Care: Greater than 35 minutes Coding Level of Care Code Acute Audio Specialist for [facility] Fwd Diagnoses Fatigue R53.83 Bronchitis J40 Obstructive sleep apnea G47.33 Diastolic heart failure I50.30 Hypertension I10 History of thyroid cancer Z85.850 Hypothyroidism E03.9 Morbid obesity E66.01 Chronic anemia D64.9 CKD (chronic kidney disease) N18.9
[2019-11-11] MEDS: famotidine 20 mg/2 mL INJ IVP (16:03)
[2019-11-11] MEDS: digoxin 125 mcg Tablet PO ×2 (16:03→16:04)
[2019-11-11] MEDS: enoxaparin 40 mg/0.4 mL Syringe SUBCUT (16:05)
[2019-11-11] MEDS: lisinopril 2.5 mg Tablet PO (16:05)
[2019-11-11] MEDS: gabapentin 400 mg Capsule PO ×2 (17:40→20:48)
[2019-11-11] MEDS: ferrous sulfate EC 325 mg Tablet PO (17:40)
[2019-11-11] MEDS: docusate sodium 100 mg Capsule PO (17:40)
[2019-11-11] MEDS: oxyCODONE-APAP 10-325 mg Tablet 1 TAB PO (17:40)
[2019-11-11] MEDS: tamsulosin 0.4 mg Capsule PO (20:47)
[2019-11-11] MEDS: metoprolol succinate ER (24 HR) 100 mg Tablet 150 MG PO (20:47)
[2019-11-11 20:48] LABS: Glucose Point of Care 96 mg/dL (70-110)
[2019-11-12] VITALS (18 sets, daily range): BP systolic 94–158; BP diastolic 49–94; PULSE 70–73; RESP 10–20; TEMP 36.6–36.9; O2SAT 91–97
[2019-11-12] MEDS: famotidine 20 mg/2 mL INJ IVP ×2 (03:09→15:30)
[2019-11-12] MEDS: ipratropium-albuterol 3 mL Neb INHALATION ×4 (04:17→21:03)
[2019-11-12] MEDS: FUROsemide 10 mg/mL SDV 4mL 40 MG IVP (04:48)
[2019-11-12 04:58] LABS: Basophils % 0.4 %; Eosinophils # 0.4 10^3/uL (0.0-0.8); Eosinophils % 8.4 %; Hematocrit 34.3 % (42.0-52.0); Hemoglobin 10.7 g/dL (11.7-16.6); Lymphocytes # 1.2 10^3/uL (0.8-4.8); Lymphocytes % 24.9 %; Mean Corpuscular HGB Conc 31.2 g/dL (30.0-36.0); Mean Corpuscular Hemoglobin 30.5 pg (28.0-34.0); Mean Corpuscular Volume 97.7 fL (80-94); Mean Platelet Volume 9.8 fL (7.4-10.4); Monocytes # 0.5 10^3/uL (0.2-0.9); Monocytes % 10.3 %; Neutrophils # 2.6 10^3/uL (1.8-7.7); Neutrophils % 55.6 %; Nucleated Red Blood Cells % 0 %; Platelet Count 261 10^3/cmm (130-400); Red Blood Count 3.51 10^6/uL (4.1-5.3); Red Cell Distribution Width 15.1 % (12.1-15.1); White Blood Count 4.7 10^3/uL (4.0-10.0)
[2019-11-12 05:20] LABS: Alanine Aminotransferase 18 U/L (0-41); Albumin Level 3.2 g/dL (3.5-5.2); Alkaline Phosphatase 80 IU/L (40-130); Anion Gap 13.9 (5-19); Aspartate Amino Transferase 22 U/L (0-40); Blood Urea Nitrogen 21 mg/dL (8-23); Carbon Dioxide 29 mmol/L (22-29); Chloride 99 mmol/L (98-107); Globulin 3.7 g/dL (1.3-4.6); Glucose 85 mg/dL (65-115); Potassium 3.9 mmol/L (3.5-5.1); Sodium 138 mmol/L (136-145); Total Bilirubin 0.5 mg/dL (0.15-1.2); Total Protein 6.9 g/dL (6.6-8.7)
[2019-11-12 05:26] LABS: Estmated Average Glucose 97
[2019-11-12] MEDS: oxyCODONE-APAP 10-325 mg Tablet 1 TAB PO ×4 (08:43→23:10)
[2019-11-12] MEDS: fluticasone nasal spray 16gm Btl 1 SPRAY NASAL ×2 (08:44→17:47)
[2019-11-12] MEDS: docusate sodium 100 mg Capsule PO ×2 (08:44→17:47)
[2019-11-12] MEDS: ferrous sulfate EC 325 mg Tablet PO ×2 (08:44→17:47)
[2019-11-12] MEDS: duloxetine 60 mg Capsule PO (08:44)
[2019-11-12] MEDS: amlodipine 5 mg Tablet PO (08:44)
[2019-11-12] MEDS: aspirin 81 mg EC Tablet PO (08:45)
[2019-11-12] MEDS: levothyroxine 125 mcg Tablet PO (08:45)
[2019-11-12] MEDS: ascorbic acid 500 mg Tablet 1000 MG PO (08:45)
[2019-11-12] MEDS: gabapentin 400 mg Capsule PO ×4 (08:45→20:00)
--- NOTE | 2019-11-12 09:13 | P.PN_ITS ---
Subjective Subjective: Interval history: Acute events overnight. This morning on evaluation patient is lying comfortably in bed. He states he cannot avoid nighttime related to CPAP pretty well. He states his breathing is a little better. Denies any nausea, vomiting, headache, dizziness, palpitations Labs noted. Blood cultures 4 out of 2 sets positive for GPC's. Vitals/I&O/Wt Last Vital Signs Temp 97.9 F 11/12/19 07:14 Pulse 70 11/12/19 07:14 Resp 18 11/12/19 08:43 BP 96/60 11/12/19 07:14 Pulse Ox 95 11/12/19 07:14 11/11/19 11/12/19 11/12/19 22:59 06:59 14:59 Intake Total 240 / 3600 480 / 480 Output Total 300 / 1750 3500 / 5250 1999 / 1999 Balance -60 / 1850 -3500 / -1650 -1520 / -1520 Weight last 48 hrs Weight 140.639 kg Weight 141.521 kg Weight 141.521 kg Physical Exam Narrative: EXAM NARRATIVE: General: No acute distress, AO x3, morbidly obese HEENT: PERRLA, pupils bilaterally equal and reactive Chest: Normal vesicular breath sounds, no added sounds, equal good air entry bilaterally CVS: S1-S2 regular, no murmurs, no tachycardia, no gallops, no rubs, no JVD Abdomen: Soft, nontender, no organomegaly, bowel sounds present Neuro: No focal deficits, no facial deformity, AO x3, power 5/5 in all limbs Urinary Catheter Management^: Melendez: Cath Placed During This Visit: yes Urethral Indwelling: No Reason for Continuing Indwelling Catheter: Acute Urinary Retention or Obst ruction Urinary Catheter Date of Insertion: 11/11/19 Urinary Catheter Time of Insertion: 00:53 Data : 11/12/19 03:59 11/12/19 03:59 Micro: Microbiology 11/11/19 01:38 Blood Culture - Preliminary Blood Gram positive cocci 11/11/19 01:13 Blood Culture - Preliminary Blood NEGATIVE TO DATE 11/11/19 09:30 Legionella Urinary Antigen - Final Urine Catheterized A&P Assessment and plan (1) Gram-positive bacteremia: Status: Acute Code(s): R78.81 - Bacteremia (2) Pneumonia: Status: Acute Code(s): J18.9 - Pneumonia, unspecified organism (3) Fatigue: Status: Acute Code(s): R53.83 - Other fatigue (4) Obstructive sleep apnea: Status: Acute Code(s): G47.33 - Obstructive sleep apnea (adult) (pediatric) (5) Diastolic heart failure: Status: Acute Code(s): I50.30 - Unspecified diastolic (congestive) heart failure (6) Hypertension: Status: Acute Code(s): I10 - Essential (primary) hypertension (7) History of thyroid cancer: Status: Acute Code(s): Z85.850 - Personal history of malignant neoplasm of thyroid (8) Hypothyroidism: Status: Acute Code(s): E03.9 - Hypothyroidism, unspecified (9) Morbid obesity: Status: Acute Code(s): E66.01 - Morbid (severe) obesity due to excess calories (10) Chronic anemia: Status: Acute Code(s): D64.9 - Anemia, unspecified (11) CKD (chronic kidney disease): Status: Acute Code(s): N18.9 - Chronic kidney disease, unspecified (12) Pacemaker: Status: Acute Code(s): Z95.0 - Presence of cardiac pacemaker Additional A&P Information Sepsis: Blood cultures positive for GPC's. Most likely source is pneumonia. CT chest results appreciated. Procal negative, afebrile, white count is normal, hemoglobin seems to be at his baseline. But given pacemaker and back hardware can not ignore GPC in blood. We will repeat blood cultures stat. We will start patient on vancomycin, Zosyn both renally dosed. Will de-escalate antibiotics as per the culture results. Start sputum Gram stain and culture. We will DC ceftriaxone. MRSA swab, Legionella urine antigen negative. If continues to remain positive will need ECHO to r/o IE, CT spine to r/o discitis Fatigue/lethargy: Multifactorial due to sepsis and PNA, CPAP dysfunction and COPD exaerbation viral bronchitis leading to PNA. proBNP 1600 which is actually lesser than all his reported numbers in the past, Ammonia levels negative. ABG done on admission showed mild hypoxia. We will start patient on Flonase for symptomatic treatment along with Tessalon Perles as needed. DuoNebs every 6 hours, budesonide twice daily. Oxygen supplementation keeping saturation over 92%. CPAP at home setting overnight. We will get care coordination consult to get help with arranging CPAP as an outpatient. History of diastolic heart failure: Last echo done few months ago shows an EF of 50-55% with grade 2 diastolic dysfunction. Overall 2 L negative with 3 L unrine output yesterday. Patient seems euvolemic to mildly dehydrated today. Hold any further diuresis for today. We will continue for now and will transfer to oral from tomorrow morning. Strict intake and output charting. Daily weights. Arrhythmia/post pacemaker: Continue with home dose of metoprolol and digoxin. Digoxin levels on admission stable. Hypertension: Blood pressures soft today. Hold Amlo, lisinopril. Change PO Met XL 150 QHS to lower dose at lopressor 50 mg BID with first dose tonight to avoid refractory tachycardia. Hypothyroidism: History of thyroid cancer post thyroid and parathyroidectomy. Continue with home dose of levothyroxine. Start on PO iron supplementation Continue chronic home medications like duloxetine, gabapentin at a lower dose of 400 4 times daily, methenamine, oxycodone 1 tab p.o. every 4 hours as needed. Cardiac diet. Full code. Lovenox for DVT prophylaxis. Famotidine for PUD prophylaxis. Attestations Medical Necessity Statement*: GPC bacteremia, PNA Time Spent in Patient Care: Greater than 35 minutes Coding Level of Care Code Acute Butter Wrapper for [facility] Fwd Diagnoses Gram-positive bacteremia R78.81 Pneumonia J18.9 Fatigue R53.83 Obstructive sleep apnea G47.33 Diastolic heart failure I50.30 Hypertension I10 History of thyroid cancer Z85.850 Hypothyroidism E03.9 Morbid obesity E66.01 Chronic anemia D64.9 CKD (chronic kidney disease) N18.9 Pacemaker Z95.0
--- NOTE | 2019-11-12 09:59 | PC.NURSE ---
DR. GOODE REQUESTED NURSE HOLD THIS DAYS DOSE OF LISINOPRIL.
[2019-11-12] MEDS: budesonide 0.5 mg/2 mL Neb INHALATION ×2 (10:02→21:03)
--- NOTE | 2019-11-12 11:34 | PC.CHAP ---
Pastoral Care Encounter/Spiritual Assessment Type of Contact [] Declined plate cleaner visit [] Patient/Family/Request visit [] Outpatient visit [x] Follow-up visit [] Physician referral [] Code/Alert [] Routine visit [] Staff referral [] Actively dying [] Patient sleeping [] Family support [] [] Out of room [] Palliative care [] [] Receiving care in room [] Pre-surgical visit [] Trauma [] Long length of stay [] ICU visit [] Other: Relational/Emotional Strength [] Patient feels connected with others/family/visitors/staff [] Distress [] Loneliness/isolation [] Abandonment Spirituality of Patient [] Person of Claire [] Attends Muslim of their Claire [] Believes in Prayer [] Reads Bible or Advent materials [] There are Spiritual issues to be addressed Intelligence Engineer Interventions [] Prayer [] Active listening [] Non-anxious presence [] Spiritual/emotional support [] Crisis/trauma care [] Spiritual counseling [] Bereavement support [] Provided bereavement packet [] Provided Bible/devotional materials [] Provided toy/stuffed animal, coloring book to patient or family member [] Provided Communion [] Anointing/[place] [] Salvation [] Completed spiritual assessment [] Other: Impact on Illness or Injury [] Angry [] Fearful [] Anxious [] Often cries [] Exhaustion [] Unable to work [] Unable to attend jew [] Unable to walk/stand [] Unable to read [] Unable to drive [] Unable to eat/drink [] Unable to sleep [] Unable to be with family [] Patient intubated [] Other: Summary Patient sleeping. Time spent with patient
[2019-11-12] MEDS: piperacillin-tazobactam 3.375 GM in sodium chloride 0.9% (plus) 50 ML IV ×2 (12:01→20:00)
[2019-11-12] MEDS: enoxaparin 40 mg/0.4 mL Syringe SUBCUT (15:30)
[2019-11-12] MEDS: metoprolol tartrate 50 mg Tablet PO (20:00)
[2019-11-12] MEDS: tamsulosin 0.4 mg Capsule PO (20:03)
[2019-11-13] VITALS (18 sets, daily range): BP systolic 111–143; BP diastolic 59–96; PULSE 62–77; RESP 10–25; TEMP 36.1–36.9; O2SAT 90–97
[2019-11-13] MEDS: famotidine 20 mg/2 mL INJ IVP ×2 (02:23→15:20)
[2019-11-13] MEDS: piperacillin-tazobactam 3.375 GM in sodium chloride 0.9% (plus) 50 ML IV ×3 (03:50→21:55)
[2019-11-13 05:11] LABS: Basophils % 0.5 %; Eosinophils # 0.4 10^3/uL (0.0-0.8); Eosinophils % 7.3 %; Hematocrit 36.4 % (42.0-52.0); Hemoglobin 11.1 g/dL (11.7-16.6); Lymphocytes # 1.4 10^3/uL (0.8-4.8); Lymphocytes % 24.7 %; Mean Corpuscular HGB Conc 30.5 g/dL (30.0-36.0); Mean Corpuscular Hemoglobin 30.2 pg (28.0-34.0); Mean Corpuscular Volume 98.9 fL (80-94); Mean Platelet Volume 9.8 fL (7.4-10.4); Monocytes # 0.6 10^3/uL (0.2-0.9); Monocytes % 10.2 %; Neutrophils # 3.1 10^3/uL (1.8-7.7); Neutrophils % 56.8 %; Nucleated Red Blood Cells % 0 %; Platelet Count 293 10^3/cmm (130-400); Red Blood Count 3.68 10^6/uL (4.1-5.3); Red Cell Distribution Width 15.1 % (12.1-15.1); White Blood Count 5.5 10^3/uL (4.0-10.0)
[2019-11-13 05:14] LABS: Alanine Aminotransferase 22 U/L (0-41); Alkaline Phosphatase 80 IU/L (40-130); Anion Gap 14.1 (5-19); Aspartate Amino Transferase 27 U/L (0-40); Blood Urea Nitrogen 24 mg/dL (8-23); Calcium 9.1 mg/dL (8.5-10.5); Carbon Dioxide 28 mmol/L (22-29); Chloride 102 mmol/L (98-107); Glucose 98 mg/dL (65-115); Potassium 4.1 mmol/L (3.5-5.1); Sodium 140 mmol/L (136-145); Total Bilirubin 0.3 mg/dL (0.15-1.2)
[2019-11-13] MEDS: docusate sodium 100 mg Capsule PO ×2 (08:38→18:31)
[2019-11-13] MEDS: duloxetine 60 mg Capsule PO (08:39)
[2019-11-13] MEDS: oxyCODONE-APAP 10-325 mg Tablet 1 TAB PO ×4 (08:39→21:56)
[2019-11-13] MEDS: gabapentin 400 mg Capsule PO ×4 (08:40→20:12)
[2019-11-13] MEDS: ascorbic acid 500 mg Tablet 1000 MG PO (08:40)
[2019-11-13] MEDS: metoprolol tartrate 50 mg Tablet PO ×2 (08:40→20:12)
[2019-11-13] MEDS: digoxin 125 mcg Tablet PO (08:40)
[2019-11-13] MEDS: levothyroxine 125 mcg Tablet PO (08:40)
[2019-11-13] MEDS: ferrous sulfate EC 325 mg Tablet PO ×2 (08:40→18:31)
[2019-11-13] MEDS: aspirin 81 mg EC Tablet PO (08:41)
[2019-11-13] MEDS: fluticasone nasal spray 16gm Btl 1 SPRAY NASAL ×2 (08:41→19:21)
[2019-11-13] MEDS: ipratropium-albuterol 3 mL Neb INHALATION ×3 (09:05→20:46)
[2019-11-13] MEDS: budesonide 0.5 mg/2 mL Neb INHALATION ×2 (09:05→20:45)
[2019-11-13 09:52] LABS: Vancomycin Trough 15.2 ug/mL (10-15)
--- NOTE | 2019-11-13 13:39 | PM.PN ---
Subjective Subjective: Interval history: Acute events overnight. This morning on evaluation patient is lying comfortably in bed. He states he cannot avoid nighttime related to CPAP pretty well. He states his breathing is a little better. Denies any nausea, vomiting, headache, dizziness, palpitations Labs noted. Blood cultures 4 out of 2 sets positive for GPC's. Vitals/I&O/Wt Last Vital Signs Temp 97.0 F L 11/13/19 12:00 Pulse 70 11/13/19 12:00 Resp 14 11/13/19 12:43 BP 120/78 11/13/19 12:00 Pulse Ox 94 11/13/19 12:00 11/12/19 11/13/19 11/13/19 22:59 06:59 14:59 Intake Total 530 / 1500 300 / 1800 290 / 290 Output Total 750 / 2750 375 / 3125 350 / 350 Balance -220 / -1250 -75 / -1325 -60 / -60 Weight last 48 hrs Weight 141.974 kg Weight 139.843 kg Weight 140.639 kg Physical Exam Narrative: EXAM NARRATIVE: General: No acute distress, AO x3, morbidly obese HEENT: PERRLA, pupils bilaterally equal and reactive Chest: Normal vesicular breath sounds, no added sounds, equal good air entry bilaterally CVS: S1-S2 regular, no murmurs, no tachycardia, no gallops, no rubs, no JVD Abdomen: Soft, nontender, no organomegaly, bowel sounds present Neuro: No focal deficits, no facial deformity, AO x3, power 5/5 in all limbs Urinary Catheter Management^: Melendez: Cath Placed During This Visit: yes Urethral Indwelling: No Reason for Continuing Indwelling Catheter: Acute Urinary Retention or Obstruction Urinary Catheter Date of Insertion: 11/11/19 Urinary Catheter Time of Insertion: 00:53 Data : 11/13/19 03:26 11/13/19 03:26 Micro: Microbiology 11/12/19 09:40 Blood Culture - Preliminary Blood 11/12/19 09:35 Blood Culture - Preliminary Blood NEGATIVE TO DATE 11/11/19 01:38 Blood Culture - Preliminary Blood Coagulase negativ staphylococc 11/11/19 14:50 MRSA Culture - Final Nose A&P Assessment and plan (1) Fatigue: Status: Acute Code(s): R53.83 - Other fatigue (2) Bronchitis: Status: Acute Code(s): J40 - Bronchitis, not specified as acute or chronic (3) Obstructive sleep apnea: Status: Acute Code(s): G47.33 - Obstructive sleep apnea (adult) (pediatric) (4) Diastolic heart failure: Status: Acute Code(s): I50.30 - Unspecified diastolic (congestive) heart failure (5) Hypertension: Status: Acute Code(s): I10 - Essential (primary) hypertension (6) History of thyroid cancer: Status: Acute Code(s): Z85.850 - Personal history of malignant neoplasm of thyroid (7) Hypothyroidism: Status: Acute Code(s): E03.9 - Hypothyroidism, unspecified (8) Morbid obesity: Status: Acute Code(s): E66.01 - Morbid (severe) obesity due to excess calories (9) Chronic anemia: Status: Acute Code(s): D64.9 - Anemia, unspecified (10) CKD (chronic kidney disease): Status: Acute Code(s): N18.9 - Chronic kidney disease, unspecified (11) Gram-positive bacteremia: Status: Acute Code(s): R78.81 - Bacteremia (12) Pneumonia: Status: Acute Code(s): J18.9 - Pneumonia, unspecified organism (13) Pacemaker: Status: Acute Code(s): Z95.0 - Presence of cardiac pacemaker Additional A&P Information Sepsis: Blood cultures positive for GPC's. Most likely source is pneumonia. CT chest results appreciated. Procal negative, afebrile, white count is normal, hemoglobin seems to be at his baseline. But given pacemaker and back hardware can not ignore GPC in blood. Continue with vancomycin, Zosyn both renally dosed for now. Vanco trough appreciated. We will de-escalate antibiotics as per culture results. Sputum Gram stain and culture results awaited. MRSA swab, Legionella urine antigen negative. If continues to remain positive will need ECHO to r/o IE, CT spine to r/o discitis Fatigue/lethargy: Multifactorial due to sepsis and PNA, CPAP dysfunction and COPD exaerbation viral bronchitis leading to PNA. proBNP 1600 which is actually lesser than all his reported numbers in the past, Ammonia levels negative. ABG done on admission showed mild hypoxia. DuoNebs every 6 hours, budesonide twice daily. Will c/w Flonase for symptomatic treatment along with Tessalon Perles as needed. Oxygen supplementation keeping saturation over 92%. CPAP at home setting overnight. We will get care coordination consult to get help with arranging CPAP as an outpatient. History of diastolic heart failure: Last echo done few months ago shows an EF of 50-55% with grade 2 diastolic dysfunction. Overall 2 L negative . Patient seems euvolemic to mildly dehydrated today. Hold any further diuresis for today. We will continue for now and will transfer to oral from tomorrow morning. Strict intake and output charting. Daily weights. Arrhythmia/post pacemaker: Continue with home dose of metoprolol and digoxin. Digoxin levels on admission stable. Hypertension: Blood pressure well maintained today. Continue to hold off on amlodipine, lisinopril. Continue with change dose of Lopressor in divided doses for now. Will introduce his medications again once blood pressure is better. Hypothyroidism: History of thyroid cancer post thyroid and parathyroidectomy. Continue with home dose of levothyroxine. Start on PO iron supplementation Continue chronic home medications like duloxetine, gabapentin at a lower dose of 400 4 times daily, methenamine, oxycodone 1 tab p.o. every 4 hours as needed. Cardiac diet. Full code. Lovenox for DVT prophylaxis. Famotidine for PUD prophylaxis. Attestations Medical Necessity Statement*: GPC bacteremia Time Spent in Patient Care: Greater than 35 minutes Coding Level of Care Code Acute Cable Tester for [facility] Fwd Diagnoses Fatigue R53.83 Bronchitis J40 Obstructive sleep apnea G47.33 Diastolic heart failure I50.30 Hypertension I10 History of thyroid cancer Z85.850 Hypothyroidism E03.9 Morbid obesity E66.01 Chronic anemia D64.9 CKD (chronic kidney disease) N18.9 Gram-positive bacteremia R78.81 Pneumonia J18.9 Pacemaker Z95.0
--- NOTE | 2019-11-13 14:58 | PC.CHAP ---
Pastoral Care Encounter/Spiritual Assessment Type of Contact [] Declined product craftsman visit [] Patient/Family/Request visit [] Outpatient visit [] Follow-up visit [] Physician referral [] Code/Alert [x] Routine visit [] Staff referral [] Actively dying [] Patient sleeping [x] Family support [] [] Out of room [] Palliative care [] [] Receiving care in room [] Pre-surgical visit [] Trauma [] Long length of stay [] ICU visit [] Other: Relational/Emotional Strength [x] Patient feels connected with others/family/visitors/staff [] Distress [] Loneliness/isolation [] Abandonment Spirituality of Patient [x] Person of Claire [x] Attends Episcopal of their Claire [x] Believes in Prayer [] Reads Bible or Restorationist materials [] There are Spiritual issues to be addressed Infectious Waste Technician Interventions [x] Prayer [x] Active listening [x] Non-anxious presence [x] Spiritual/emotional support [] Crisis/trauma care [x] Spiritual counseling [] Bereavement support [] Provided bereavement packet [] Provided Bible/devotional materials [] Provided toy/stuffed animal, coloring book to patient or family member [] Provided Communion [] Anointing/[place] [] Salvation [x Completed spiritual assessment [] Other: Impact on Illness or Injury [] Angry [] Fearful [] Anxious [] Often cries [] Exhaustion [x] Unable to work [] Unable to attend church [] Unable to walk/stand [] Unable to read [] Unable to drive [] Unable to eat/drink [] Unable to sleep [] Unable to be with family [] Patient intubated [] Other: Summary Patient stated he has had cancer multiple times and had broken both feet and was being treated for cancer currently. Patient and asked for prayer for their family. Infectious Waste Technician prayed with patient and visited about claire and beliefs. Time spent with patient 15 minutes
[2019-11-13] MEDS: enoxaparin 40 mg/0.4 mL Syringe SUBCUT (15:20)
[2019-11-13] MEDS: tamsulosin 0.4 mg Capsule PO (20:12)
[2019-11-14] VITALS (18 sets, daily range): BP systolic 102–137; BP diastolic 51–83; PULSE 69–80; RESP 13–21; TEMP 36.4–37.1; O2SAT 93–96
--- NOTE | 2019-11-14 00:29 | PC.NURSE ---
Dr. Cardoso notified of patient asking for eyedrops for dry eyes.
[2019-11-14] MEDS: famotidine 20 mg/2 mL INJ IVP ×2 (02:03→15:40)
[2019-11-14] MEDS: oxyCODONE-APAP 10-325 mg Tablet 1 TAB PO ×5 (02:03→21:23)
[2019-11-14 04:11] LABS: Basophils % 0.8 %; Eosinophils # 0.4 10^3/uL (0.0-0.8); Eosinophils % 8.2 %; Hematocrit 33.4 % (42.0-52.0); Hemoglobin 10.4 g/dL (11.7-16.6); Lymphocytes # 1.3 10^3/uL (0.8-4.8); Lymphocytes % 26.2 %; Mean Corpuscular HGB Conc 31.1 g/dL (30.0-36.0); Mean Corpuscular Hemoglobin 29.5 pg (28.0-34.0); Mean Corpuscular Volume 94.6 fL (80-94); Mean Platelet Volume 10.4 fL (7.4-10.4); Monocytes # 0.5 10^3/uL (0.2-0.9); Monocytes % 9.1 %; Neutrophils # 2.8 10^3/uL (1.8-7.7); Neutrophils % 55.3 %; Nucleated Red Blood Cells % 0 %; Platelet Count 267 10^3/cmm (130-400); Red Blood Count 3.53 10^6/uL (4.1-5.3); Red Cell Distribution Width 14.8 % (12.1-15.1)
[2019-11-14 04:26] LABS: Alanine Aminotransferase 21 U/L (0-41); Albumin Level 3.1 g/dL (3.5-5.2); Alkaline Phosphatase 76 IU/L (40-130); Anion Gap 13.5 (5-19); Aspartate Amino Transferase 28 U/L (0-40); Blood Urea Nitrogen 24 mg/dL (8-23); Calcium 8.8 mg/dL (8.5-10.5); Carbon Dioxide 27 mmol/L (22-29); Chloride 101 mmol/L (98-107); Globulin 3.1 g/dL (1.3-4.6); Glucose 84 mg/dL (65-115); Potassium 4.5 mmol/L (3.5-5.1); Sodium 137 mmol/L (136-145); Total Bilirubin 0.4 mg/dL (0.15-1.2); Total Protein 6.2 g/dL (6.6-8.7)
[2019-11-14] MEDS: artificial tears Op Soln 15 mL Btl 1 DROP EYE-BOTH ×3 (05:51→17:29)
[2019-11-14] MEDS: piperacillin-tazobactam 3.375 GM in sodium chloride 0.9% (plus) 50 ML IV ×3 (05:52→19:58)
[2019-11-14] MEDS: ipratropium-albuterol 3 mL Neb INHALATION ×4 (08:25→21:11)
[2019-11-14] MEDS: budesonide 0.5 mg/2 mL Neb INHALATION ×2 (08:26→21:11)
[2019-11-14] MEDS: ascorbic acid 500 mg Tablet 1000 MG PO (08:58)
[2019-11-14] MEDS: aspirin 81 mg EC Tablet PO (08:58)
[2019-11-14] MEDS: digoxin 125 mcg Tablet PO (08:58)
[2019-11-14] MEDS: ferrous sulfate EC 325 mg Tablet PO ×2 (08:58→17:28)
[2019-11-14] MEDS: docusate sodium 100 mg Capsule PO ×2 (08:59→17:27)
[2019-11-14] MEDS: duloxetine 60 mg Capsule PO (08:59)
[2019-11-14] MEDS: fluticasone nasal spray 16gm Btl 1 SPRAY NASAL ×2 (08:59→17:28)
[2019-11-14] MEDS: levothyroxine 125 mcg Tablet PO (08:59)
[2019-11-14] MEDS: gabapentin 400 mg Capsule PO ×4 (08:59→21:08)
[2019-11-14] MEDS: metoprolol tartrate 50 mg Tablet PO ×2 (08:59→21:07)
--- NOTE | 2019-11-14 10:40 | CT_ITS ---
WS: [id number] CT CERVICAL SPINE TECHNIQUE: Noncontrast CT of the cervical spine with coronal and sagittal reformatted images. CLINICAL INFORMATION: r/o diskitis COMPARISON: None. DLP: 891.[address] scans at [facility] use at least one of these dose optimization techniques: automat ed exposure control; mA and/or kV adjustment per patient size (includes targeted exams where dose is matched to clinical indication); or iterative reconstruction. FINDINGS: Mild spondylitic changes cervical spine. No high-grade central canal stenosis. Normal C1-2 articulati on. No evidence of endplate erosion to indicate discitis. A few prominent cervical lymph nodes likely reactive. C2-C3: Normal. C3-C4: Mild disc osteophyte complex with endplate ridging. Mild to moderate bilateral bony foraminal narrowing right greater than left. C4-C5: Normal. C5-C6: Disc osteophyte complex with endplate ridging. Mild left greater than right bony foraminal rosa rowing. Moderate facet arthropathy. Mild central canal stenosis. Tiny central protrusion. C6-C7: Disc osteophyte complex endplate ridging. Right pericentral disc protrusion with moderate cent ral canal stenosis. Moderate to severe bilateral bony foraminal narrowing. Moderate facet arthropathy . C7-T1: Mild disc bulging and osteophytic ridging. Spinal canal and foramen are patent. Moderate central canal stenosis at T2-3 due to osteophytic ridging and facet arthropathy. Surgical cl ips at the thoracic inlet. Dense intracranial vascular calcification. CT/CT cervical spin wo con* [id number] IMPRESSION: 1. No evidence of discitis 2. Right pericentral disc osteophyte protrusion C6-C7 with moderate central ca nal stenosis and moderate to severe bilateral bony foraminal narrowing.
--- NOTE | 2019-11-14 10:40 | USCV_ITS ---
Abdullahi Maurice Age: 73 Gender: M : 1945 Exam Date: 11/14/2019 14:53 Ordering Phys: Khurram Martino MD Technologist: Reanna Trinidad Exam Location: [facility] [place] Indication: endocarditis BP: / HR: 69 Rhythm: Sinus Technical Quality: Suboptimal MEASUREMENTS (Male / Female) Normal Values 2D ECHO LV Diastolic Diameter PLAX 1.5 cm 4.2 - 5.9 / 3.9 - 5.3 cm LV Systolic Diameter PLAX 0.8 cm LV Chamber Size 3.5 cm IVS Diastolic Thickness 1.3 cm 0.6 - 1.0 / 0.6 - 0.9 cm IVS Systolic Thickness 1.2 cm LVPW Diastolic Thickness 1.7 cm 0.6 - 1.0 / 0.6 - 0.9 cm LVPW Systolic Thickness 1.4 cm RV Chamber Size 3.4 cm LVOT Diameter 2.0 cm LV Ejection Fraction 2D Teich 80.4 % LV Ejection Fraction MOD 2C 81.3 % LV Ejection Fraction 2C AL 80.7 % LA Diameter 3.2 cm LA Width 3.7 cm LA Height 6.5 cm RA Width 2.9 cm RA Height 5.9 cm M-MODE LV Diastolic Diameter MM 7.0 cm 4.2 - 5.9 / 3.9 - 5.3 cm LV Systolic Diameter MM 4.6 cm LV Ejection Fraction MM Teich 62.2 % IVS Diastolic Thickness MM 1.0 cm 0.6 - 1.0 / 0.6 - 0.9 cm IVS Systolic Thickness MM 1.2 cm LVPW Diastolic Thickness MM 1.3 cm 0.6 - 1.0 / 0.6 - 0.9 cm LVPW Systolic Thickness MM 2.3 cm MV E Point Septal Separation 0.7 cm DOPPLER AV Peak Velocity 116.0 cm/s LVOT Peak Velocity 93.0 cm/s AV Area Cont Eq vti 2.6 cm squared AV Area Cont Eq pk 2.5 cm squared MV Area PHT 3.9 cm squared Mitral E to A Ratio 3.7 MV E' Velocity 17.0 cm/s Mitral E to MV E' Ratio 7.7 Mitral E to LV E' Lateral Ratio 6.3 Mitral E to LV E' Septal Ratio 9.9 TR Peak Velocity 231.0 cm/s TR Peak Gradient 21.4 mmHg TV Peak E Velocity 48.0 cm/s Right Atrial Pressure 3.0 mmHg Pulmonary Artery Systolic Pressu 24.3 mmHg PV Peak Velocity 78.0 cm/s RV Acceleration Time 0.1 s RV Ejection Time 0.4 s RV AcT/ET 0.4 FINDINGS Left Ventricle Normal left ventricular size, systolic function and wall thickness, with no regional wall motion abnormalities. Left ventricular ejection fraction is estimated at 60 %. Right Ventricle Right ventricle not well visualized. Normal right ventricular systolic pressure. Right Atrium The right atrium is normal in size. Left Atrium The left atrium is normal in size. Mitral Valve Mitral valve not well visualized. No mitral valve regurgitation. Aortic Valve Aortic valve not well visualized. No aortic valve stenosis. No aortic valve regurgitation. Tricuspid Valve Tricuspid valve not well visualized. Trace tricuspid valve regurgitation. Pulmonic Valve Pulmonic valve not well visualized. Pericardium Normal pericardium without effusion. Aorta Normal ascending aorta dimension. CONCLUSIONS Normal left ventricular size, systolic function and wall thickness, with no regional wall motion abnormalities. Left ventricular ejection fraction is estimated at 60 %. There are no prior echocardiogram studies to compare. This study is not a good quality study. The valves are very poorly seen. This study cannot rule in or rule out endocarditis. If there is a high clinical suspicion a transesophageal echo should be considered. Dr. Pedro Winters MD (Electronically Signed) Final Date: 15 November 2019 09:19 S
--- NOTE | 2019-11-14 10:40 | CT_ITS ---
WS: [id number] CT LUMBAR SPINE TECHNIQUE: Noncontrast CT of the lumbar spine with coronal and sagittal reformatted images. CLINICAL INFORMATION: r/o disckitis COMPARISON: None. DLP: 2183.[address] scans at [facility] use at least one of these dose optimization techniques: automat ed exposure control; mA and/or kV adjustment per patient size (includes targeted exams where dose is matched to clinical indication); or iterative reconstruction. FINDINGS: Mild lumbar curve convex left. No acute compression fractures. Vacuum disc phenomenon L4-5 likely deg enerative. Subchondral cystic change along the L4 endplate likely degenerative. No evidence of discit is. Partial fusion of the L5-S1 disc space. No perispinal inflammatory changes. No evidence of endpla te destruction to indicate discitis. L1-L2: Mild disc bulging with mild central canal stenosis. Mild left and no significant right foramin al narrowing. Mild central canal stenosis. L2-L3: Mild annular bulging with slight effacement of ventral thecal sac. Mild facet arthropathy. Mil d central canal stenosis. L3-L4: Mild disc bulging and osteophytic ridging. Moderate facet arthropathy. Mild left and no signif icant right foraminal narrowing. Advanced facet arthropathy. Moderate central canal stenosis. L4-L5: Remote appearing hemilaminectomies. Mild central canal stenosis. Moderate bilateral bony salbador inal narrowing. Moderate facet arthropathy. L5-S1: Interbody fusion L5-S1. Posterior elements bony fusion. Disc osteophyte ridging with narrowing of the right subarticular recess and encroachment right S1 nerve root. Foramen are patent. Spinal ca nal is patent. Small moderate sliding esophageal hiatal hernia. CT/CT lumbar spine wo con* [id number] IMPRESSION: 1. No evidence of discitis. 2. Vacuum disc phenomenon L4-5 likely degenerative with subchondral cystic milind nge. No perispinal inflammatory changes. 3. Moderate chronic central canal stenosis L2-L3 and L3-L4 worse at L3-L4. 4. Prior postoperative changes L4-L5 and L5-S1 described above.
--- NOTE | 2019-11-14 10:41 | CT_ITS ---
WS: [id number] CT THORACIC SPINE TECHNIQUE: Noncontrast CT of the thoracic spine with coronal and sagittal reformatted images. CLINICAL INFORMATION: r/o diskitis COMPARISON: None. DLP: 2691.[address] scans at [facility] use at least one of these dose optimization techniques: automat ed exposure control; mA and/or kV adjustment per patient size (includes targeted exams where dose is matched to clinical indication); or iterative reconstruction. FINDINGS: Mild thoracic curve convex right. Moderate thoracic kyphosis. Ankylosis mid and lower thoracic spine with preservation of disc space height. No acute appearing compression fractures. Vacuum disc phenome non in the upper mid thoracic spine at T4-T5 and T5-T6. No high-grade central canal narrowing. Modera te central canal stenosis T2-3 due to osteophytic ridging and facet arthropathy. * Multilevel mild to moderate bony foraminal narrowing worse at right T1-T2, bilateral T10-11, left T11-12 and left L1-2. Moderate facet arthropathy lower thoracic spine. Mild central canal stenosis T9 -10, T10-11 and T11-12 due to osteophytic ridging and facet arthropathy. Subsegmental atelectasis in the lung bases. Small esophageal hiatal hernia. CT/CT thoracic spin wo con* [id number] IMPRESSION: 1. No evidence of discitis. 2. No high-grade central canal stenosis. 3. Ankylosis mid and lower thoracic spine likely due to DISH
--- NOTE | 2019-11-14 12:42 | PC.SOCIAL ---
IMM Update Pg 2 of IMM given and explained to patient who verbalized understanding. Signed, dated, timed, and placed in chart. Copy left with patient.
[2019-11-14] MEDS: enoxaparin 40 mg/0.4 mL Syringe SUBCUT (15:40)
--- NOTE | 2019-11-14 16:39 | PC.NURSE ---
Contacted Dr Martino with patient request for double portion meals Dr gianna markham with diet change
[2019-11-14 18:15] LABS: Procalcitonin 0.03 ng/mL (0-0.5)
[2019-11-14 18:22] LABS: Erythrocyte Sedimentation Rate 34 mm/hr (0-10)
--- NOTE | 2019-11-14 19:23 | PM.PN ---
Subjective Subjective: Interval history: This morning patient was examined, patient was sitting in bed, no significant complaints, no complaints of fevers, no chills, no nausea, no vomiting, no chest pain, no Palpitations, does have complaints of back pain but has had a history of back surgery Vitals/I&O/Wt Last Vital Signs Temp 98.0 F 11/14/19 19:05 Pulse 70 11/14/19 19:05 Resp 16 11/14/19 19:05 BP 104/58 11/14/19 19:05 Pulse Ox 93 11/14/19 19:05 11/14/19 11/14/19 11/14/19 06:59 14:59 22:59 Intake Total 650 / 1240 530 / 530 Output Total 1375 / 2025 300 / 300 Balance -725 / -785 230 / 230 Weight last 48 hrs Weight 143.925 kg Weight 141.974 kg Physical Exam Const: COMMON NORMALS: no apparent distress and oriented x3 HENMT: COMMON NORMALS: normocephalic HEAD & SCALP: normocephalic Neck/C-Spine: COMMON NORMALS: no JVD Resp: COMMON NORMALS: normal respiratory effort, no retractions, no use of accessory muscles and clear to auscultation bilaterally AUSCULTATION: clear to auscultation bilaterally Cardio: COMMON NORMALS: no JVD, regular rate, regular rhythm, S1 normal heart sound and S2 normal heart sound RATE: regular rate RHYTHM: regular rhythm HEART SOUNDS: S1 normal and S2 normal GI: COMMON NORMALS: normal to inspection, nondistended, normoactive bowel sounds, soft to palpation, non-tender, no hepatosplenomegaly, no masses and no bruits PALPATION: Yes soft and Yes no hepatosplenomegaly Extremity: COMMON NORMALS: normal capillary refill, no clubbing, cyanosis or edema, no calf tenderness and no pedal edema Neuro: COMMON NORMALS: oriented x3 Psych: COMMON NORMALS: mental status grossly normal Urinary Catheter Management^: Melendez: Cath Placed During This Visit: yes Urethral Indwelling: No Reason for Continuing Indwelling Catheter: Acute Urinary Retention or Obstruction Urinary Catheter Date of Insertion: 11/11/19 Urinary Catheter Time of Insertion: 00:53 Data : 11/14/19 03:15 11/14/19 03:15 A&P Assessment and plan (1) Fatigue: Status: Acute Code(s): R53.83 - Other fatigue (2) Bronchitis: Status: Acute Code(s): J40 - Bronchitis, not specified as acute or chronic (3) Obstructive sleep apnea: Status: Acute Code(s): G47.33 - Obstructive sleep apnea (adult) (pediatric) (4) Diastolic heart failure: Status: Acute Code(s): I50.30 - Unspecified diastolic (congestive) heart failure (5) Hypertension: Status: Acute Code(s): I10 - Essential (primary) hypertension (6) History of thyroid cancer: Status: Acute Code(s): Z85.850 - Personal history of malignant neoplasm of thyroid (7) Hypothyroidism: Status: Acute Code(s): E03.9 - Hypothyroidism, unspecified (8) Morbid obesity: Status: Acute Code(s): E66.01 - Morbid (severe) obesity due to excess calories (9) Chronic anemia: Status: Acute Code(s): D64.9 - Anemia, unspecified (10) CKD (chronic kidney disease): Status: Acute Code(s): N18.9 - Chronic kidney disease, unspecified (11) Gram-positive bacteremia: Status: Acute Code(s): R78.81 - Bacteremia (12) Pneumonia: Status: Acute Code(s): J18.9 - Pneumonia, unspecified organism (13) Pacemaker: Status: Acute Code(s): Z95.0 - Presence of cardiac pacemaker Additional A&P Information Sepsis: Blood cultures positive for GPC's. -Most likely source is pneumonia, CT of the chest showed right pulmonary infiltrates, afebrile, no significant leukocytosis, ESR 34, CRP 9, pro-Thomas 0.03 -On cultures obtained on 11/11/2019 blood cultures are positive for coagulase-negative staph -On cultures obtained on 11/12/2020 blood culture out of 4 was positive for coagulase-negative staph -on review of patient's medical records, he had 4 admissions for altered mental status/pneumonia since December 2018 -He has had 4 other blood cultures positive since December 2018+ for coagulase-negative staph -As patient has had roughly 8 blood cultures positive for coagulase-negative staph it is highly likely that this is a real infection and this cannot be ignored -Patient does have a history of laminectomy and history of hardware in his back, but CT of the cervical/thoracic/lumbar spine was negative for discitis -He does have a history hardware in bilateral ankles, he did have a trimalleolar left ankle fracture in December 2018 -He does have a pacemaker in place Plan: Continue with vancomycin, Zosyn both renally dosed for now. Vanco trough appreciated. We will de-escalate antibiotics as per culture results. Sputum Gram stain and culture results awaited. MRSA swab, Legionella urine antigen negative. 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 . ABG done on admission showed mild hypoxia. DuoNebs every 6 hours, budesonide twice daily. Will c/w Flonase for symptomatic treatment along with Tessalon Perles as needed. Oxygen supplementation keeping saturation over 92%. CPAP at home setting overnight. We will get care coordination consult to get help with arranging CPAP as an outpatient. History of diastolic heart failure: Last echo done few months ago shows an EF of 50-55% with grade 2 diastolic dysfunction. Overall 2 L negative . Patient seems euvolemic to mildly dehydrated today. Hold any further diuresis for today. We will continue for now and will transfer to oral from tomorrow morning. Strict intake and output charting. Daily weights. Arrhythmia/post pacemaker: Continue with home dose of metoprolol and digoxin. Digoxin levels on admission stable. Hypertension: Blood pressure well maintained today. Continue to hold off on amlodipine, lisinopril. Continue with change dose of Lopressor in divided doses for now. Will introduce his medications again once blood pressure is better. Hypothyroidism: History of thyroid cancer post thyroid and parathyroidectomy. Continue with home dose of levothyroxine. Start on PO iron supplementation History of non-Hodgkin's lymphoma, status post chemotherapy, in remission History of prostate cancer Continue chronic home medications like duloxetine, gabapentin at a lower dose of 400 4 times daily, methenamine, oxycodone 1 tab p.o. every 4 hours as needed. Cardiac diet. Full code. Lovenox for DVT prophylaxis. Famotidine for PUD prophylaxis. [facility]*: Patient requires continued hospitalization, pneumonias, coagulase-negative staph bacteremia Coding Level of Care Code Acute E [employer] Diagnoses Fatigue R53.83 Bronchitis J40 Obstructive sleep apnea G47.33 Diastolic heart failure I50.30 Hypertension I10 History of thyroid cancer Z85.850 Hypothyroidism E03.9 Morbid obesity E66.01 Chronic anemia D64.9 CKD (chronic kidney disease) N18.9 Gram-positive bacteremia R78.81 Pneumonia J18.9 Pacemaker Z95.0
--- NOTE | 2019-11-14 20:21 | PC.NURSE ---
Abdominal hernia noted. Requesting to take medications at 2100. I don't think I get a pain pill until around eleven so please be sure and bring me my Xanax. Informed patient that this nurse would. I just have constant back pain and bilateral ankle and foot pain. Will monitor.
--- NOTE | 2019-11-14 20:36 | PM.CONSULT ---
Providers/Reason For Consult Consulting Physican/Specialty*: Cardiology Reason for Consult*: Coagulase-negative staph and multiple blood cultures. Consider JOSE for ruling out endocarditis Attending Physician: Khurram Martino MD Primary Care Provider: Jacob Valladares DO History of Present Illness History of Present Illness Abdullahi Maurice is a 73 year old male with multiple medical problems, is admitted to hospital with complaints of generalized weakness/shortness of breath. He has a history of non-Hodgkin's lymphoma, on remission, thyroid cancer, status post thyroidectomy, gastric bypass surgery, pancreatic mass, recurrent decompensated diastolic heart failure, status post permanent pacer implantation. He is currently being treated for pneumonia. He was found to have positive blood culture, growing coagulase-negative staph. Apparently he had multiple blood cultures in the past showing similar organisms. According the patient, he has no fever or chills. Cardiology consult is requested for a transesophageal echocardiogram to rule out any endocarditis. Patient is morbidly obese. The transthoracic echocardiogram is a suboptimal quality. According the patient, he has no no difficulty in swallowing. He had upper endoscopy studies in the past. He has no history for any GI bleed. Review of Systems Narrative: CONSTITUTIONAL: No fever or chills. Dyspnea on exertion and some generalized weakness for the last few weeks EYES: No blurring of vision or other visual disturbances lately. ENT: No hoarseness of voice, auditory disturbances or sore throat. CARDIOVASCULAR: As mentioned above. RESPIRATORY: History of sleep apnea, recurrent up respiratory infection GASTROINTESTINAL: No hematemesis or melena. Large ventral hernia GENITOURINARY: No dysuria or hematuria. INTEGUMENTARY: No skin rashes or history of skin cancer. NEURO: No transient ischemic attacks or amaurosis. PSYCHIATRIC: No history of psychosis or major depression. HEMATOLOGIC: History of non-Hodgkin's lymphoma, chronic anemia, status post thyroidectomy for thyroid cancer, pancreatic mass ENDOCRINE: No history of polyuria or polydipsia. MUSCULOSKELETAL: No recent joint pain or swelling. ALLERGY/IMMUNOLOGY: As mentioned above. Meds/Allergies Home Medications and Allergies Home Medications Medication Instructions Recorded Confirmed Type ascorbic acid (vitamin C) 1,000 mg 1,000 mg PO DAILY tab 10/24/19 11/11/19 History tablet methenamine hippurate 1 gram tablet 1 gm PO BID 10/24/19 11/11/19 History alprazolam 1 mg PO BID PRN 11/11/19 11/11/19 History amlodipine 5 mg PO DAILY 11/11/19 11/11/19 History aspirin 81 mg PO DAILY 11/11/19 11/11/19 History cholecalciferol (vitamin D3) 125 mcg PO DAILY 11/11/19 11/11/19 History [Vitamin D3] ciprofloxacin HCl [Cipro] 500 mg PO BID 11/11/19 11/11/19 History duloxetine 60 mg PO DAILY 11/11/19 11/11/19 History gabapentin 800 mg PO QID 11/11/19 11/11/19 History levothyroxine [Synthroid] 125 mcg PO DAILY 11/11/19 11/11/19 History lisinopril 2.5 mg PO DAILY 11/11/19 11/11/19 History metoprolol succinate 150 mg PO BEDTIME 11/11/19 11/11/19 History oxycodone-acetaminophen 1 tab PO Q4H 11/11/19 11/11/19 History tamsulosin 0.4 mg PO BEDTIME 11/11/19 11/11/19 History Allergies Allergy/AdvReac Type Severity Reaction Status Date / Time Sulfa (Sulfonamide Allergy Unknown Verified 11/02/19 08:09 Antibiotics) Current Medications Current Medications Generic Name Dose Route Start Last Admin Trade Name Freq PRN Reason Stop Dose Admin Albuterol/Ipratropium 3 ml 11/11/19 09:00 11/14/19 14:34 Duoneb INHALATION 3 ml Q6H.RESPIRATORY JL Administration Alprazolam 1 mg 11/11/19 14:55 11/14/19 02:08 Xanax PO 1 mg BID PRN Administration stress Amlodipine Besylate 5 mg 11/12/19 09:00 11/12/19 08:44 Norvasc PO 5 mg DAILY JL Administration Artificial Tears 1 drop 11/14/19 01:16 11/14/19 17:29 Isopto Tears EYE-BOTH 1 drop Q4H PRN Administration DRY EYE(S) Ascorbic Acid 1,000 mg 11/12/19 09:00 11/14/19 08:58 Vitamin C PO 1,000 mg DAILY JL Administration Aspirin 81 mg 11/12/19 09:00 11/14/19 08:58 Aspirin Ec PO 81 mg DAILY JL Administration Budesonide 0.5 mg 11/11/19 09:00 11/14/19 08:26 Pulmicort INHALATION 0.5 mg BID JL Administration Digoxin 125 mcg 11/11/19 15:00 11/14/19 08:58 Lanoxin PO 125 mcg DAILY JL Administration Docusate Sodium 100 mg 11/11/19 18:00 11/14/19 17:27 Colace PO 100 mg BID JL Administration Enoxaparin Sodium 40 mg 11/11/19 16:00 11/14/19 15:40 Lovenox SUBCUT 40 mg Q24H JL Administration Famotidine 20 mg 11/11/19 15:00 11/14/19 15:40 Pepcid Inj IVP 20 mg Q12H JL Administration Ferrous Sulfate 325 mg 11/11/19 18:00 11/14/19 17:28 Ferrous Sulfate PO 325 mg BIDWM JL Administration Fluticasone Propionate 1 spray 11/11/19 18:00 11/14/19 17:28 Flonase NASAL 1 spray BID JL Administration Gabapentin 400 mg 11/11/19 17:00 11/14/19 17:29 Neurontin PO 400 mg QID JL Administration Piperacillin Sod/Tazobactam 50 mls @ 12.5 mls/hr 11/12/19 12:00 11/14/19 19:58 Sod 3.375 gm/ Sodium Chloride IV 12.5 mls/hr Q8H JL Administration Protocol Vancomycin HCl 1,500 mg/ 250 mls @ 166.667 mls/hr 11/13/19 22:00 11/14/19 10:09 Sodium Chloride IV 166.7 mls/hr Q12H JL Administration Protocol Levothyroxine Sodium 125 mcg 11/12/19 09:00 11/14/19 08:59 Synthroid PO 125 mcg DAILY [facility] Administration Lisinopril 2.5 mg 11/11/19 15:00 11/12/19 09:56 Prinivil PO Not Given DAILY [facility] Metoprolol Succinate 150 mg 11/11/19 21:00 11/11/19 20:47 Toprol Xl PO 150 mg BEDTIME JL Administration Metoprolol Tartrate 50 mg 11/12/19 21:00 11/14/19 08:59 Lopressor PO 50 mg Q12H JL Administration Oxycodone/Acetaminophen 1 tab 11/11/19 14:55 11/14/19 17:27 Percocet 10-325 Mg PO 1 tab Q4H PRN Administration pain Tamsulosin HCl 0.4 mg 11/11/19 21:00 11/13/19 20:12 Flomax PO 0.4 mg BEDTIME JL Administration PFSH Acute PFSH: Medical History Chronic anemia CKD (chronic kidney disease) Diastolic heart failure Erectile dysfunction Fatigue History of ESBL E. coli infection History of thyroid cancer Hypertension Hypothyroidism Lower urinary tract symptoms Morbid obesity Obstructive sleep apnea Pacemaker Prostate cancer Recurrent UTI Urinary incontinence Urolithiasis Surgical History History of gastric bypass History of parathyroidectomy History of spinal surgery MULTIPLE LOWER SPINE SURGERY History of thyroidectomy Hx of tonsillectomy Family History Sister Cancer Father , at age 73 CAD (coronary artery disease) Mother , at age 76 Alzheimer's dementia Social History Smoking and tobacco status: former smoker Alcohol intake: unknown Adopted: No Caregiver/support person: No Lives independently: No Household members: spouse Marital status: Current occupational status: retired Vitals/I&O/Wt Last Vital Signs Temp 98.0 F 11/14/19 19:05 Pulse 70 11/14/19 19:05 Resp 16 11/14/19 19:05 BP 104/58 11/14/19 19:05 Pulse Ox 93 11/14/19 19:05 11/14/19 11/14/19 11/14/19 06:59 14:59 22:59 Intake Total 650 / 1240 530 / 530 410 / 940 Output Total 1375 / 2025 300 / 300 750 / 1050 Balance -725 / -785 230 / 230 -340 / -110 Weight last 48 hrs Weight 317 lb 4.8 oz Weight 313 lb Physical Exam Narrative: EXAM NARRATIVE: GENERAL: The patient is alert and oriented times three. Not in any acute distress. HEENT: Minimal pallor, no icterus or lymphadenopathy. The pupils are reactant to light. Oral cavity: There are no mucous membrane lesions. Funduscopic examination: The disk margins appear to be sharp with no exudates or hemorrhages. NECK: Trachea appears to be central. No masses noted. No JVD or thyromegaly appreciated. No carotid bruit. The thyroidectomy scar appears to have well-healed RESPIRATORY: Chest is symmetrical. No intercostals muscle retraction or any accessory muscle activation. There is no chest wall tenderness. Breath sounds are heard bilaterally. No rales or rhonchi heard. No evidence of any consolidation. Diminished symmetric breath sounds in the bases. BREASTS: Deferred. HEART: The PMI could not be palpated. No other palpable precordial events. First and second heart sounds are normal. No S3. Short systolic murmur in the left sternal border. No diastolic murmurs. No pericardial rub. ABDOMEN: Obese nontender. Large ventral hernia. Bowel sounds are normally heard. : Deferred. RECTAL: Deferred. LYMPHATIC: No cervical lymphadenopathy. EXTREMITIES: No significant edema. Features of some chronic venous stasis. MUSCULOSKELETAL: No acute joint deformities or swelling SKIN: No skin rashes noted NEUROPSYCHIATRIC: The patient is alert and oriented x3. Appears to be in a good mood. The higher functions are grossly within normal limits. No tremors or rigidity noted. Urinary Catheter Management^: Melendez: Cath Placed During This Visit: yes Urethral Indwelling: No Reason for Continuing Indwelling Catheter: Other Urinary Catheter Date of Insertion: 11/11/19 Urinary Catheter Time of Insertion: 00:53 Data Other Data: Other data: Echocardiogram on 11/03/2019 Study is poor in quality and difficult. The ventricle is likely normal in size. No obvious wall motion disturbances are noted but visualization is poor. There may be some septal dyssynergy secondary to the underlying bundle branch block rhythm. A rough estimate of the ejection fraction would be 50 to 55%. There is likely grade 2 diastolic dysfunction. Moderately increased right atrial size. Moderately increased left atrial size. Previous study was 10 months ago. The study compares favorably. There have been no significant changes. CT of the head 11/11/2019 1. No evidence of acute intracranial abnormality. No evidence of acute infarction, hemorrhage, or mass. 2. Mucosal sinus disease. CT of the chest on 11/13/2019 Mild posterior right pulmonary infiltrates concerning for pneumonia. Other findings as described. Thoracic spine CT 1. No evidence of discitis. 2. No high-grade central canal stenosis. 3. 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 Since the patient had multiple blood cultures growing the same organism, it might be appropriate to go ahead and do a transesophageal echocardiogram, to evaluate for any evidence of endocarditis. Patient currently has no contraindication for this procedure. The risk of aspiration, bleeding, soft tissue injury, perforation of the stomach/esophagus and other concomitant complications were explained to the patient in detail. The patient understood this well and consented to proceed May go to schedule this procedure for tomorrow Status: Acute Code(s): B95.7 - Other staphylococcus as the cause of diseases classified elsewhere (2) Acute on chronic diastolic (congestive) heart failure: Patient is currently compensated. May continue on the current medications. Status: Acute Code(s): I50.33 - Acute on chronic diastolic (congestive) heart failure (3) History of permanent cardiac pacemaker placement: Pacemaker function appears to be appropriate. Status: Acute Code(s): Z95.0 - Presence of cardiac pacemaker Additional A&P Information Based on CT findings, further recommendations will be made. Coding Level of Care Code Acute [employer]ographer [employer] for [facility] Diagnoses Coagulase-negative staphylococcal infection B95.7 Acute on chronic diastolic (congestive) heart failure I50.33 History of permanent cardiac pacemaker placement Z95.0
[2019-11-14] MEDS: tamsulosin 0.4 mg Capsule PO (21:08)
[2019-11-15] VITALS (16 sets, daily range): BP systolic 117–150; BP diastolic 69–90; PULSE 70–84; RESP 13–20; TEMP 36.4–36.8; O2SAT 90–98
[2019-11-15] MEDS: piperacillin-tazobactam 3.375 GM in sodium chloride 0.9% (plus) 50 ML IV ×2 (03:27→11:07)
[2019-11-15] MEDS: famotidine 20 mg/2 mL INJ IVP ×2 (03:28→16:12)
--- NOTE | 2019-11-15 03:30 | PC.NURSE ---
Patient awakened by lab for blood draw. Scheduled medications given at this time. Awakened briefly;however, went right back to sleep. Will monitor.
[2019-11-15 03:57] LABS: Basophils % 0.8 %; Eosinophils # 0.5 10^3/uL (0.0-0.8); Eosinophils % 8.6 %; Hematocrit 35.2 % (42.0-52.0); Hemoglobin 10.8 g/dL (11.7-16.6); Lymphocytes # 1.2 10^3/uL (0.8-4.8); Lymphocytes % 23.5 %; Mean Corpuscular HGB Conc 30.7 g/dL (30.0-36.0); Mean Corpuscular Hemoglobin 29.3 pg (28.0-34.0); Mean Corpuscular Volume 95.4 fL (80-94); Mean Platelet Volume 9.8 fL (7.4-10.4); Monocytes # 0.5 10^3/uL (0.2-0.9); Monocytes % 9.8 %; Neutrophils % 56.9 %; Nucleated Red Blood Cells % 0 %; Platelet Count 276 10^3/cmm (130-400); Red Blood Count 3.69 10^6/uL (4.1-5.3); Red Cell Distribution Width 14.6 % (12.1-15.1); White Blood Count 5.2 10^3/uL (4.0-10.0)
[2019-11-15 04:13] LABS: Alanine Aminotransferase 21 U/L (0-41); Albumin Level 2.9 g/dL (3.5-5.2); Alkaline Phosphatase 72 IU/L (40-130); Anion Gap 12.8 (5-19); Aspartate Amino Transferase 23 U/L (0-40); Blood Urea Nitrogen 20 mg/dL (8-23); Calcium 8.9 mg/dL (8.5-10.5); Carbon Dioxide 27 mmol/L (22-29); Chloride 104 mmol/L (98-107); Globulin 3.8 g/dL (1.3-4.6); Glucose 91 mg/dL (65-115); Magnesium 2.2 mg/dL (1.7-2.3); Potassium 4.8 mmol/L (3.5-5.1); Sodium 139 mmol/L (136-145); Total Bilirubin 0.3 mg/dL (0.15-1.2); Total Protein 6.7 g/dL (6.6-8.7)
[2019-11-15] MEDS: levothyroxine 125 mcg Tablet PO (08:21)
[2019-11-15] MEDS: ascorbic acid 500 mg Tablet 1000 MG PO (08:21)
[2019-11-15] MEDS: gabapentin 400 mg Capsule PO ×4 (08:21→21:50)
[2019-11-15] MEDS: metoprolol tartrate 50 mg Tablet PO ×2 (08:21→21:50)
[2019-11-15] MEDS: duloxetine 60 mg Capsule PO (08:21)
[2019-11-15] MEDS: ferrous sulfate EC 325 mg Tablet PO ×2 (08:22→18:03)
[2019-11-15] MEDS: digoxin 125 mcg Tablet PO (08:22)
[2019-11-15] MEDS: aspirin 81 mg EC Tablet PO (08:22)
[2019-11-15] MEDS: oxyCODONE-APAP 10-325 mg Tablet 1 TAB PO ×3 (08:30→21:50)
[2019-11-15] MEDS: budesonide 0.5 mg/2 mL Neb INHALATION ×2 (08:49→20:43)
[2019-11-15] MEDS: ipratropium-albuterol 3 mL Neb INHALATION ×3 (08:49→20:44)
--- NOTE | 2019-11-15 09:08 | PM.PN ---
Subjective Subjective: Interval history: Patient denies any chest pain or shortness of breath. No fever or chills. No other specific complaints. He had the transesophageal echocardiogram today. He was found to have no masses or vegetations on the intracardiac structures. Spontaneous echo contrast was noted in the left atrium. No intracardiac shunts were noted. Medications: Medication Review Details: Current Medications Albuterol/Ipratropium (Duoneb) 3 ml INHALATION Q6H.RESPIRATORY [facility] Last Admin: 11/15/19 08:49 Dose: 3 ml Documented by: Alprazolam (Xanax) 1 mg PO BID PRN PRN Reason: stress Last Admin: 11/14/19 21:25 Dose: 1 mg Documented by: Amlodipine Besylate (Norvasc) 5 mg PO DAILY [facility] Last Admin: 11/12/19 08:44 Dose: 5 mg Documented by: Artificial Tears (Isopto Tears) 1 drop EYE-BOTH Q4H PRN PRN Reason: DRY EYE(S) Last Admin: 11/14/19 17:29 Dose: 1 drop Documented by: Ascorbic Acid (Vitamin C) 1,000 mg PO DAILY [facility] Last Admin: 11/15/19 08:21 Dose: 1,000 mg Documented by: Aspirin (Aspirin Ec) 81 mg PO DAILY [facility] Last Admin: 11/15/19 08:22 Dose: 81 mg Documented by: Benzonatate (Tessalon Pearls) 200 mg PO TID PRN PRN Reason: COUGH Budesonide (Pulmicort) 0.5 mg INHALATION BID [facility] Last Admin: 11/15/19 08:49 Dose: 0.5 mg Documented by: Digoxin (Lanoxin) 125 mcg PO DAILY [facility] Last Admin: 11/15/19 08:22 Dose: 125 mcg Documented by: Docusate Sodium (Colace) 100 mg PO BID [facility] Last Admin: 11/15/19 08:22 Dose: Not Given Documented by: Enoxaparin Sodium (Lovenox) 40 mg SUBCUT Q24H [facility] Last Admin: 11/14/19 15:40 Dose: 40 mg Documented by: Famotidine (Pepcid Inj) 20 mg IVP Q12H [facility] Last Admin: 11/15/19 03:28 Dose: 20 mg Documented by: Ferrous Sulfate (Ferrous Sulfate) 325 mg PO BIDWM [facility] Last Admin: 11/15/19 08:22 Dose: 325 mg Documented by: Fluticasone Propionate (Flonase) 1 spray NASAL BID [facility] Last Admin: 11/15/19 08:22 Dose: Not Given Documented by: Furosemide (Lasix) 40 mg IVP Q24H JL Gabapentin (Neurontin) 400 mg PO QID [facility] Last Admin: 11/15/19 08:21 Dose: 400 mg Documented by: Piperacillin Sod/Tazobactam (Sod 3.375 gm/ Sodium Chloride) 50 mls @ 12.5 mls/hr IV Q8H [facility]; Protocol Last Admin: 11/15/19 03:27 Dose: 12.5 mls/hr Documented by: Vancomycin HCl 1,500 mg/ (Sodium Chloride) 250 mls @ 166.667 mls/hr IV Q12H [facility]; Protocol Last Infusion: 11/15/19 02:13 Dose: Infused Documented by: Lactulose (Constulose) 10 gm PO DAILY PRN PRN Reason: CONSTIPA Levothyroxine Sodium (Synthroid) 125 mcg PO DAILY [facility] Last Admin: 11/15/19 08:21 Dose: 125 mcg Documented by: Lisinopril (Prinivil) 2.5 mg PO DAILY [facility] Last Admin: 11/12/19 09:56 Dose: Not Given Documented by: Metoprolol Succinate (Toprol Xl) 150 mg PO BEDTIME [facility] Last Admin: 11/11/19 20:47 Dose: 150 mg Documented by: Metoprolol Tartrate (Lopressor) 50 mg PO Q12H [facility] Last Admin: 11/15/19 08:21 Dose: 50 mg Documented by: Non-Formulary Medication (Methenamine Hippurate) 1 gm PO BID [facility] Ondansetron HCl (Zofran) 4 mg IVP Q6H PRN PRN Reason: NAUSEA AND VOMITING Oxycodone/Acetaminophen (Percocet 10-325 Mg) 1 tab PO Q4H PRN PRN Reason: pain Last Admin: 11/15/19 08:30 Dose: 1 tab Documented by: Tamsulosin HCl (Flomax) 0.4 mg PO BEDTIME [facility] Last Admin: 11/14/19 21:08 Dose: 0.4 mg Documented by: Vitals/I&O/Wt Last Vital Signs Temp 98.2 F 11/15/19 07:27 Pulse 70 11/15/19 08:53 Resp 16 11/15/19 08:51 BP 117/69 11/15/19 07:27 Pulse Ox 90 11/15/19 07:27 11/14/19 11/15/19 11/15/19 22:59 06:59 14:59 Intake Total 530 / 1310 300 / 1610 Output Total 750 / 1050 800 / 1850 Balance -220 / 260 -500 / -240 Weight last 48 hrs Weight 317 lb 8 oz Weight 317 lb 4.8 oz Physical Exam Narrative: EXAM NARRATIVE: GENERAL: The patient is alert and oriented times three. Not in any acute distress. HEENT: Minimal pallor,no icterus or lymphadenopathy.Oral cavity: There are no mucous membrane lesions. NECK: Trachea appears to be central. No masses noted. No JVD or thyromegaly appreciated. RESPIRATORY: Chest is symmetrical. No intercostals muscle retraction or any accessory muscle activation. There is no chest wall tenderness. Breath sounds are heard bilaterally. No rales or rhonchi heard. No evidence of any consolidation. BREASTS: Deferred. HEART: The heart sounds are normal. No S3 or S4. Short systolic murmur in the left sternal border. No pericardial rub ABDOMEN: Obese and nontender. Large ventral hernia present. No vessel pulsations No tenderness. No organomegaly appreciated. Bowel sounds are normally heard. : Deferred. RECTAL: Deferred. LYMPHATIC: No lymphadenopathy noted in the neck . EXTREMITIES: No edema or cyanosis. No clubbing. Peripheral pulses are palpated in fairly good volume and amplitude MUSCULOSKELETAL: No acute joint deformities or swelling SKIN: There are no significant scars or skin rash noted. NEUROPSYCHIATRIC: The patient is alert and oriented x3. Appears to be in a good mood. No tremors or rigidity noted. Urinary Catheter Management^: Melendez: Cath Placed During This Visit: yes Urethral Indwelling: No Reason for Continuing Indwelling Catheter: Acute Urinary Retention or Obstruction Urinary Catheter Date of Insertion: 11/11/19 Urinary Catheter Time of Insertion: 00:53 Data : 11/15/19 03:29 11/15/19 03:29 Other Labs: Abnormal lab results 11/14/19 11/14/19 11/15/19 Range/Units 03:15 03:15 03:29 RBC 3.69 L (4.1-5.3) 10^6/uL Hgb 10.8 L (11.7-16.6) g/dL Hct 35.2 L (42.0-52.0) % MCV 95.4 H (80-94) fL ESR 34 H (0-10) mm/hr C-Reactive Protein 9.0 H (0.0-4.9) mg/L Albumin (3.5-5.2) g/dL // Range/Units 03:29 RBC (4.1-5.3) 10^6/uL Hgb (11.7-16.6) g/dL Hct (42.0-52.0) % MCV (80-94) fL ESR (0-10) mm/hr C-Reactive Protein (0.0-4.9) mg/L Albumin 2.9 L (3.5-5.2) g/dL A&P Assessment and plan (1) 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 Continue on the current treatment measures Status: Acute Code(s): B95.7 - Other staphylococcus as the cause of diseases classified elsewhere (2) History of permanent cardiac pacemaker placement: Pacemaker function is appropriate. Continue the current monitoring Status: Acute Code(s): Z95.0 - Presence of cardiac pacemaker (3) Acute on chronic diastolic (congestive) heart failure: The heart failure seems to be compensated. May continue on the current medications. Status: Acute Code(s): I50.33 - Acute on chronic diastolic (congestive) heart failure (4) Arrhythmia: Patient apparently was found to have frequent ectopics on the monitor. He do not have an EKG in the chart. I may go ahead and do an EKG today. 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
--- NOTE | 2019-11-15 10:36 | ANES.PREANE2 ---
Pre-Anesthetic Assessment Pre-Anesthetic Assessment: Height/Weight: Height 1.93 m Weight 144.016 kg Temp Pulse Resp BP Pulse Ox 98.2 F 70 16 117/69 90 11/15/19 07:27 11/15/19 08:53 11/15/19 08:51 11/15/19 07:27 11/15/19 07:27 Preop Diagnosis: Sepsis Proposed Procedure: Operation Date: 11/15/19 14:00 Proposed Procedures p JOSE (Transesophageal Echocardiogram)(Not Applicable) - Hemalatha Whiting MD Was Beta Jamila taken within 24 hours: Yes Last Intake: 23:59 Exam: Pre-Anes Outpt Exam: clear to auscultation bilaterally and regular rate & rhythm Additional Exam Findings (including area of procedure): somnolent date ---- November, [facility] Airway: Submandibular: WNL Cervical ROM: Other MP: 2 Pulmonary: Pulmonary: Sleep apnea Comments: hx bronchitis, pneumonia CV/HEM: CV/HEM: Anemia, CHF and HTN 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, 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 CHF : : Chronic renal Insufficiency Metabolic: Metabolic: Morbid obesity Anesthetic Plan: ASA status: 3 Anesthesia: MAC Meds/Allergies Current Medications: Current Medications Generic Name Dose Route Start Last Admin Trade Name Freq PRN Reason Stop Dose Admin Albuterol/Ipratrop ium 3 ml 11/11/19 09:00 11/15/19 08:49 Duoneb INHALATION 3 ml Q6H.RESPIRATORY [facility] Administration Alprazolam 1 mg 11/11/19 14:55 11/14/19 21:25 Xanax PO 1 mg BID PRN Administration stress Amlodipine Besylat e 5 mg 11/12/19 09:00 11/12/19 08:44 Norvasc PO 5 mg DAILY JL Administration Artificial Tears 1 drop 11/14/19 01:16 11/14/19 17:29 Isopto Tears EYE-BOTH 1 drop Q4H PRN Administration DRY EYE(S) Ascorbic Acid 1,000 mg 11/12/19 09:00 11/15/19 08:21 Vitamin C PO 1,000 mg DAILY JL Administration Aspirin 81 mg 11/12/19 09:00 11/15/19 08:22 Aspirin Ec PO 81 mg DAILY JL Administration Budesonide 0.5 mg 11/11/19 09:00 11/15/19 08:49 Pulmicort INHALATION 0.5 mg BID JL Administration Digoxin 125 mcg 11/11/19 15:00 11/15/19 08:22 Lanoxin PO 125 mcg DAILY JL Administration Docusate Sodium 100 mg 11/11/19 18:00 11/15/19 08:22 Colace PO Not Given BID [facility] Enoxaparin Sodium 40 mg 11/11/19 16:00 11/14/19 15:40 Lovenox SUBCUT 40 mg Q24H JL Administration Famotidine 20 mg 11/11/19 15:00 11/15/19 03:28 Pepcid Inj IVP 20 mg Q12H JL Administration Ferrous Sulfate 325 mg 11/11/19 18:00 11/15/19 08:22 Ferrous Sulfate PO 325 mg BIDWM JL Administration Fluticasone Propio kaur 1 spray 11/11/19 18:00 11/15/19 08:22 Flonase NASAL Not Given BID [facility] Gabapentin 400 mg 11/11/19 17:00 11/15/19 08:21 Neurontin PO 400 mg QID JL Administration Piperacillin Sod/T azobactam 50 mls @ 12.5 mls /hr 11/12/19 12:00 11/15/19 03:27 Sod 3.375 gm/ So dium Chloride IV 12.5 mls/hr Q8H JL Administration Protocol Vancomycin HCl 1,5 00 mg/ 250 mls @ 166.667 mls/hr 11/13/19 22:00 11/15/19 09:28 Sodium Chloride IV 166.7 mls/hr Q12H JL Administration Protocol Levothyroxine Sodi um 125 mcg 11/12/19 09:00 11/15/19 08:21 Synthroid PO 125 mcg DAILY JL Administration Lisinopril 2.5 mg 11/11/19 15:00 11/12/19 09:56 Prinivil PO Not Given DAILY [facility] Metoprolol Succina te 150 mg 11/11/19 21:00 11/11/19 20:47 Toprol Xl PO 150 mg BEDTIME JL Administration Metoprolol Tartrat e 50 mg 11/12/19 21:00 11/15/19 08:21 Lopressor PO 50 mg Q12H JL Administration Oxycodone/Acetamin ophen 1 tab 11/11/19 14:55 11/15/19 08:30 Percocet 10-325 Mg PO 1 tab Q4H PRN Administration pain Tamsulosin HCl 0.4 mg 11/11/19 21:00 11/14/19 21:08 Flomax PO 0.4 mg BEDTIME JL Administration PFSH Anesthesia PFSH: Medical History (Updated 11/14/19 @ 21:19 by Hemalatha Whiting MD) Acute on chronic diastolic (congestive) heart failure Chronic anemia CKD (chronic kidney disease) 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 coli infection History of thyroid cancer Hypertension Hypothyroidism Lower urinary tract symptoms Morbid obesity Obstructive sleep apnea Pacemaker Prostate cancer Recurrent UTI Urinary incontinence Urolithiasis Surgical History (Updated 11/14/19 @ 21:19 by Hemalatha Whiting MD) History of gastric bypass History of parathyroidectomy History of permanent cardiac pacemaker placement History of spinal surgery MULTIPLE LOWER SPINE SURGERY History of thyroidectomy Hx of tonsillectomy Family History Sister Cancer Father , at age 73 CAD (coronary artery disease) Mother , at age 76 Alzheimer's dementia Social History Smoking and tobacco status: former smoker Alcohol intake: unknown Adopted: No Caregiver/support person: No Lives independently: No Household members: spouse Marital status: Current occupational status: retired Data Anesthesia CBC & Chem 7: 11/15/19 03:29 11/15/19 03:29 Other Labs: Laboratory Results - last 48 hr 11/14/19 11/14/19 11/14/19 03:15 03:15 03:15 WBC 5.0 RBC 3.53 L Hgb 10.4 L Hct 33.4 L MCV 94.6 H MCH 29.5 MCHC 31.1 RDW 14.8 Plt Count 267 MPV 10.4 Neut % (Auto) 55.3 Lymph % (Auto) 26.2 Peach % (Auto) 9.1 Eos % (Auto) 8.2 Baso % (Auto) 0.8 Neut # (Auto) 2.8 Lymph # (Auto) 1.3 Peach # (Auto) 0.5 Eos # (Auto) 0.4 Baso # (Auto) 0.0 Nucleated RBC % (auto) 0 Nucleated RBCs # 0.0 ESR 34 H Sodium 137 Potassium 4.5 Chloride 101 Carbon Dioxide 27 Anion Gap 13.5 BUN 24 H Creatinine 1.1 Glucose 84 Calcium 8.8 Phosphorus Magnesium Total Bilirubin 0.4 AST 28 ALT 21 Alkaline Phosphatase 76 C-Reactive Protein Total Protein 6.2 L Albumin 3.1 L Globulin 3.1 Procalcitonin 11/14/19 11/15/19 11/15/19 03:15 03:29 03:29 WBC 5.2 RBC 3.69 L Hgb 10.8 L Hct 35.2 L MCV 95.4 H MCH 29.3 MCHC 30.7 RDW 14.6 Plt Count 276 MPV 9.8 Neut % (Auto) 56.9 Lymph % (Auto) 23.5 Peach % (Auto) 9.8 Eos % (Auto) 8.6 Baso % (Auto) 0.8 Neut # (Auto) 3.0 Lymph # (Auto) 1.2 Peach # (Auto) 0.5 Eos # (Auto) 0.5 Baso # (Auto) 0.0 Nucleated RBC % (auto) 0 Nucleated RBCs # 0.0 ESR Sodium 139 Potassium 4.8 Chloride 104 Carbon Dioxide 27 Anion Gap 12.8 BUN 20 Creatinine 1.2 Glucose 91 Calcium 8.9 Phosphorus 4.0 Magnesium 2.2 Total Bilirubin 0.3 AST 23 ALT 21 Alkaline Phosphatase 72 C-Reactive Protein 9.0 H Total Protein 6.7 Albumin 2.9 L Globulin 3.8 Procalcitonin 0.03 Cardiac Studies: No Data to Display
--- NOTE | 2019-11-15 11:28 | PM.PN ---
Subjective Subjective: Interval history: Patient has no complaints this morning, no fevers, chills, no nausea, no vomiting, no abdominal pain, no lightheadedness, dizziness, patient will have a transesophageal echocardiogram later on this afternoon Vitals/I&O/Wt Last Vital Signs Temp 98.2 F 11/15/19 07:27 Pulse 70 11/15/19 10:53 Resp 18 11/15/19 10:53 BP 130/79 11/15/19 10:53 Pulse Ox 93 11/15/19 10:53 11/14/19 11/15/19 11/15/19 22:59 06:59 14:59 Intake Total 530 / 1310 300 / 1610 50 / 50 Output Total 750 / 1050 800 / 1850 Balance -220 / 260 -500 / -240 50 / 50 Weight last 48 hrs Weight 144.016 kg Weight 143.925 kg Physical Exam Const: COMMON NORMALS: no apparent distress and oriented x3 HENMT: COMMON NORMALS: normocephalic HEAD & SCALP: normocephalic Neck/C-Spine: COMMON NORMALS: no JVD Resp: COMMON NORMALS: normal respiratory effort, no retractions, no use of accessory muscles and clear to auscultation bilaterally AUSCULTATION: clear to auscultation bilaterally Cardio: COMMON NORMALS: no JVD, regular rate, regular rhythm, S1 normal heart sound and S2 normal heart sound RATE: regular rate RHYTHM: regular rhythm HEART SOUNDS: S1 normal and S2 normal GI: COMMON NORMALS: normal to inspection, nondistended, normoactive bowel sounds, soft to palpation, non-tender, no hepatosplenomegaly, no masses and no bruits PALPATION: Yes soft and Yes no hepatosplenomegaly Extremity: COMMON NORMALS: normal capillary refill, no clubbing, cyanosis or edema, no calf tenderness and no pedal edema Neuro: COMMON NORMALS: oriented x3 Psych: COMMON NORMALS: mental status grossly normal Urinary Catheter Management^: Melendez: Cath Placed During This Visit: yes Urethral Indwelling: No Reason for Continuing Indwelling Catheter: Acute Urinary Retention or Obstruction Urinary Catheter Date of Insertion: 11/11/19 Urinary Catheter Time of Insertion: 00:53 Data : 11/15/19 03:29 11/15/19 03:29 Micro: Microbiology 11/12/19 09:40 Blood Culture - Preliminary Blood Coagulase negativ staphylococc 11/11/19 01:38 Blood Culture - Preliminary Blood Coagulase negativ staphylococc A&P Assessment and plan (1) Fatigue: Status: Acute Code(s): R53.83 - Other fatigue (2) Bronchitis: Status: Acute Code(s): J40 - Bronchitis, not specified as acute or chronic (3) Obstructive sleep apnea: Status: Acute Code(s): G47.33 - Obstructive sleep apnea (adult) (pediatric) (4) Diastolic heart failure: Status: Acute Code(s): I50.30 - Unspecified diastolic (congestive) heart failure (5) Hypertension: Status: Acute Code(s): I10 - Essential (primary) hypertension (6) History of thyroid cancer: Status: Acute Code(s): Z85.850 - Personal history of malignant neoplasm of thyroid (7) Hypothyroidism: Status: Acute Code(s): E03.9 - Hypothyroidism, unspecified (8) Morbid obesity: Status: Acute Code(s): E66.01 - Morbid (severe) obesity due to excess calories (9) Chronic anemia: Status: Acute Code(s): D64.9 - Anemia, unspecified (10) CKD (chronic kidney disease): Status: Acute Code(s): N18.9 - Chronic kidney disease, unspecified (11) Gram-positive bacteremia: Status: Acute Code(s): R78.81 - Bacteremia (12) Pneumonia: Status: Acute Code(s): J18.9 - Pneumonia, unspecified organism (13) Pacemaker: Status: Acute Code(s): Z95.0 - Presence of cardiac pacemaker Additional A&P Information Sepsis: Blood cultures positive for GPC's. -Most likely source is pneumonia, CT of the chest showed right pulmonary infiltrates, afebrile, no significant leukocytosis, ESR 34, CRP 9, pro-Thomas 0.03 -On cultures obtained on 11/11/2019 blood cultures are positive for coagulase-negative staph -On cultures obtained on 11/12/2020 blood culture out of 4 was positive for coagulase-negative staph -on review of patient's medical records, he had 4 admissions for altered mental status/pneumonia since December 2018 -He has had 4 other blood cultures positive since December 2018+ for coagulase-negative staph -As patient has had roughly 8 blood cultures positive for coagulase-negative staph it is highly likely that this is a real infection and this cannot be ignored -Patient does have a history of laminectomy and history of hardware in his back, but CT of the cervical/thoracic/lumbar spine was negative for discitis -He does have a history hardware in bilateral ankles, he did have a trimalleolar left ankle fracture in December 2018 -He does have a pacemaker in place Plan: Continue with vancomycin, Zosyn both renally dosed for now. Vanco trough appreciated. We will de-escalate antibiotics as per culture results. Sputum Gram stain and culture results awaited. MRSA swab, Legionella urine antigen negative. 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 . ABG done on admission showed mild hypoxia. DuoNebs every 6 hours, budesonide twice daily. Will c/w Flonase for symptomatic treatment along with Tessalon Perles as needed. Oxygen supplementation keeping saturation over 92%. CPAP at home setting overnight. We will get care coordination consult to get help with arranging CPAP as an outpatient. History of diastolic heart failure: Last echo done few months ago shows an EF of 50-55% with grade 2 diastolic dysfunction. Overall 2 L negative . Patient seems euvolemic to mildly dehydrated today. Hold any further diuresis for today. We will continue for now and will transfer to oral from tomorrow morning. Strict intake and output charting. Daily weights. Arrhythmia/post pacemaker: Continue with home dose of metoprolol and digoxin. Digoxin levels on admission stable. Hypertension: Blood pressure well maintained today. Continue to hold off on amlodipine, lisinopril. Continue with change dose of Lopressor in divided doses for now. Will introduce his medications again once blood pressure is better. Hypothyroidism: History of thyroid cancer post thyroid and parathyroidectomy. Continue with home dose of levothyroxine. Start on PO iron supplementation History of non-Hodgkin's lymphoma, status post chemotherapy, in remission History of prostate cancer Continue chronic home medications like duloxetine, gabapentin at a lower dose of 400 4 times daily, methenamine, oxycodone 1 tab p.o. every 4 hours as needed. Cardiac diet. Full code. Lovenox for DVT prophylaxis. Famotidine for PUD prophylaxis. Attestations Medical Necessity Statement*: Patient requires continued hospitalization due to concerns for for bacteremia Coding Level of Care Code Acute Forepart Laster for g Fwd Diagnoses Fatigue R53.83 Bronchitis J40 Obstructive sleep apnea G47.33 Diastolic heart failure I50.30 Hypertension I10 History of thyroid cancer Z85.850 Hypothyroidism E03.9 Morbid obesity E66.01 Chronic anemia D64.9 CKD (chronic kidney disease) N18.9 Gram-positive bacteremia R78.81 Pneumonia J18.9 Pacemaker Z95.0
[2019-11-15] MEDS: artificial tears Op Soln 15 mL Btl 1 DROP EYE-BOTH (12:02)
--- NOTE | 2019-11-15 14:00 | USCV_ITS ---
Abdullahi Maurice Age: 73 Gender: M : 1945 Exam Date: 11/15/2019 13:39 Ordering Phys: Khurram Martino MD Technologist: Lion Zheng Exam Location: [facility] [place] Indication: ? VEG BP: / HR: Rhythm: Sinus Technical Quality: Good MEASUREMENTS (Male / Female) Normal Values Medications Patient given IV sedation by anesthesia service, for details please refer to the anesthesia report. Complications None Proc. Components The JOSE probe was passed into the posterior pharynx , mid- esophagus, distal esophagus, and gastric fundus. JOSE was performed at multiple levels. The patient tolerated the procedure well and there were no complications. FINDINGS Left Ventricle Possibly of normal size and ejection fraction. Right Ventricle Appears to be of normal size. Right Atrium Mildly dilated Left Atrium Mildly dilated. Continues echo contrast was noted LA Appendage Diminished contractility IA Septum Appears to be intact with no evidence of any ASD or patent foramen ovale, based on the color flow Doppler examination and saline contrast injection Mitral Valve Minimally thickened mitral valve. Mild mitral regurgitation Aortic Valve Thickened aortic valve. Tricuspid Valve No gross abnormality noted Pulmonic Valve Minimally thickened with no significant pulmonic regurgitation Pericardium No significant pericardial effusion Aorta Minimal plaques in the ascending aorta. CONCLUSIONS Minimally thickened aortic and mitral valves with no masses or vegetations. The pulmonic and tricuspid valves also were found to have no obvious masses or vegetations. Mild mitral regurgitation Possibly normal LV size ejection fraction. Pacemaker wire was noted in the right atrium and right ventricle. No obvious masses or vegetations were noted on the leads Mild biatrial enlargement. No intracardiac masses noted. No evidence of any intracardiac shunt, by color-flow Doppler examination or saline contrast injection. Dr Hemalatha Whiting MD FACC (Electronically Signed) Final Date: 15 November 2019 17:09 S
--- NOTE | 2019-11-15 14:15 | ECG_ITS ---
Measurements Intervals Mobile Rate: 68 P: IA: 0 QRS: -78 QRSD: 194 T: 98 QT: 478 QTc: 511 ELECTRONIC VENTRICULAR PACEMAKER ABNORMAL RHYTHM ECG Compared to ECG 05/30/2019 03:50:07 No significant changes Electronically Signed On 11-15-2019 15:23:38 CERTIFIED PHLEBOTOMIST by Pedro Winters M.D. [email or web address]
--- NOTE | 2019-11-15 14:15 | PC.NURSE ---
JOSE TIME OUT-1343 MEDICATIONS STARTED PER ANESTHESIA-1345 JOSE BEGAN-1347 BUBBLES ADMINISTERED-1349 PROCEDURE END-1358 PATIENT HANDED TO NURSING CARE FROM ANESTHESIA-1400
[2019-11-15] MEDS: sodium chloride 0.9% 1,000 ML 100 ML IV (14:53)
[2019-11-15] MEDS: enoxaparin 40 mg/0.4 mL Syringe SUBCUT (16:33)
[2019-11-15] MEDS: tamsulosin 0.4 mg Capsule PO (21:50)
--- NOTE | 2019-11-15 22:00 | PC.NURSE ---
Patient upset over Xanax not being reordered. This nurse explained to patient that I would relay message on to oncoming shift. States, Xanax helps me sleep. Voices understanding to explanation. Will monitor.
--- NOTE | 2019-11-15 23:30 | PC.NURSE ---
This nurse entered patient's room secondary to Vancomycin infusion being complete. This nurse flushed PIID without difficulty. Patient didn't awaken at all. Will monitor.
[2019-11-16] VITALS (68 sets, daily range): BP systolic 111–148; BP diastolic 65–89; PULSE 69–78; RESP 11–25; TEMP 36.6–36.8; O2SAT 92–100
[2019-11-16] MEDS: famotidine 20 mg/2 mL INJ IVP ×2 (02:45→15:43)
[2019-11-16 03:56] LABS: Basophils # 0.1 10^3/uL (0.0-0.1); Basophils % 0.7 %; Eosinophils # 0.5 10^3/uL (0.0-0.8); Lymphocytes # 1.4 10^3/uL (0.8-4.8); Mean Corpuscular HGB Conc 30.6 g/dL (30.0-36.0); Mean Corpuscular Hemoglobin 30.5 pg (28.0-34.0); Mean Corpuscular Volume 99.7 fL (80-94); Mean Platelet Volume 9.6 fL (7.4-10.4); Monocytes # 0.7 10^3/uL (0.2-0.9); Monocytes % 10.3 %; Neutrophils % 60.3 %; Nucleated Red Blood Cells % 0 %; Platelet Count 250 10^3/cmm (130-400); Red Blood Count 3.61 10^6/uL (4.1-5.3); Red Cell Distribution Width 14.9 % (12.1-15.1); White Blood Count 6.7 10^3/uL (4.0-10.0)
[2019-11-16 04:26] LABS: Alanine Aminotransferase 19 U/L (0-41); Albumin Level 2.8 g/dL (3.5-5.2); Alkaline Phosphatase 70 IU/L (40-130); Aspartate Amino Transferase 16 U/L (0-40); Blood Urea Nitrogen 18 mg/dL (8-23); Calcium 8.9 mg/dL (8.5-10.5); Carbon Dioxide 29 mmol/L (22-29); Chloride 103 mmol/L (98-107); Globulin 3.8 g/dL (1.3-4.6); Glucose 96 mg/dL (65-115); Magnesium 2.3 mg/dL (1.7-2.3); Phosphorus 3.8 mg/dL (2.5-4.5); Sodium 139 mmol/L (136-145); Total Bilirubin 0.3 mg/dL (0.15-1.2); Total Protein 6.6 g/dL (6.6-8.7)
[2019-11-16] MEDS: oxyCODONE-APAP 10-325 mg Tablet 1 TAB PO ×5 (05:00→21:03)
--- NOTE | 2019-11-16 05:03 | PC.NURSE ---
Answered patient's call light. Patient requesting his meds. States, I think it's time for my medications. Explained to patient what time it was and that his medication would be due at 0900. Patient then asked for a pain pill and something for the sneezes. Explained to patient that I could give him a pain pill but I'd have to notify the doctor for the sneezes. States, Aw that'll be alright til morning. Pain pill given. Will monitor.
--- NOTE | 2019-11-16 06:16 | PC.NURSE ---
Patient upset over clock in room being 5 minutes fast. I like my clocks to all be the same time. Informed patient that staff would relay his complaint. Thanked this nurse. Will monitor.
[2019-11-16] MEDS: artificial tears Op Soln 15 mL Btl 1 DROP EYE-BOTH (06:25)
--- NOTE | 2019-11-16 06:41 | PC.NURSE ---
Patient now requesting that this nurse take his PIID out. It hurts and it's just laying there with nothing going through it...I don't want a blood clot...could you please get a hold of that young man who's gonna put my PICC line in and see when he's coming? This nurse called ED and Aaron isn't in yet. Patient informed. Will monitor.
[2019-11-16] MEDS: ferrous sulfate EC 325 mg Tablet PO ×2 (08:30→17:10)
[2019-11-16] MEDS: ipratropium-albuterol 3 mL Neb INHALATION ×4 (08:57→20:46)
[2019-11-16] MEDS: budesonide 0.5 mg/2 mL Neb INHALATION ×2 (08:57→20:46)
--- NOTE | 2019-11-16 09:10 | PC.SOCIAL ---
IMM Updated Page 2 of IMM updated and given to patient. Initialed, dated, and timed and placed back in chart.
[2019-11-16] MEDS: gabapentin 400 mg Capsule PO ×4 (09:22→21:03)
[2019-11-16] MEDS: duloxetine 60 mg Capsule PO (09:22)
[2019-11-16] MEDS: ascorbic acid 500 mg Tablet 1000 MG PO (09:22)
[2019-11-16] MEDS: docusate sodium 100 mg Capsule PO ×2 (09:23→17:27)
[2019-11-16] MEDS: fluticasone nasal spray 16gm Btl 1 SPRAY NASAL (09:26)
[2019-11-16] MEDS: digoxin 125 mcg Tablet PO (09:26)
[2019-11-16] MEDS: metoprolol tartrate 50 mg Tablet PO ×2 (09:26→21:03)
[2019-11-16] MEDS: levothyroxine 125 mcg Tablet PO (09:27)
[2019-11-16] MEDS: aspirin 81 mg EC Tablet PO (09:27)
[2019-11-16 09:53] LABS: Vancomycin Trough 27.4 ug/mL (10-15)
--- NOTE | 2019-11-16 11:15 | XR_ITS ---
WS: [id number] PORTABLE CHEST HISTORY: PICC LINE PLACEMENT COMPARISON: 11/11/2006 Right-sided PICC line with tip in distal SVC. As visualized no abnormality. Cardiac size: Limited evaluation. Mediastinum/Aorta: No mediastinal widening. No osseous abnormality seen. XR/XR chest 1V portable [id number] IMPRESSION: Limited evaluation of the thorax. RIGHT PICC line in good position with no comp lications evident radiographically.
--- NOTE | 2019-11-16 13:02 | PM.PN ---
Subjective Subjective: Interval history: This morning patient is doing well, no fevers, chills, no nausea, no vomiting, unfortunately patient could not have his tagged WBC scan as he did not have adequate blood draw for the exam, he will have a PICC line placed today for long-term IV antibiotics, hopefully the WBC can be completed tomorrow as we can figure out what the source of his recurrent bacteremia is, second set of blood cultures have also been positive for coagulase-negative staph Vitals/I&O/Wt Last Vital Signs Temp 98.3 F 11/16/19 04:00 Pulse 70 11/16/19 10:55 Resp 18 11/16/19 10:55 BP 148/89 11/16/19 12:30 Pulse Ox 96 11/16/19 08:58 11/15/19 11/16/19 11/16/19 22:59 06:59 14:59 Intake Total 480 / 780 450 / 1230 172.788 / 172.788 Output Total 1100 / 2100 Balance 480 / -220 -650 / -870 172.788 / 172.788 Weight last 48 hrs Weight 145.785 kg Weight 144.016 kg Physical Exam Const: COMMON NORMALS: no apparent distress and oriented x3 HENMT: COMMON NORMALS: normocephalic HEAD & SCALP: normocephalic Neck/C-Spine: COMMON NORMALS: no JVD Resp: COMMON NORMALS: normal respiratory effort, no retractions, no use of accessory muscles and clear to auscultation bilaterally AUSCULTATION: clear to auscultation bilaterally Cardio: COMMON NORMALS: no JVD, regular rate, regular rhythm, S1 normal heart sound and S2 normal heart sound RATE: regular rate RHYTHM: regular rhythm HEART SOUNDS: S1 normal and S2 normal GI: COMMON NORMALS: normal to inspection, nondistended, normoactive bowel sounds, soft to palpation, non-tender, no hepatosplenomegaly, no masses and no bruits PALPATION: Yes soft and Yes no hepatosplenomegaly Extremity: COMMON NORMALS: normal capillary refill, no clubbing, cyanosis or edema, no calf tenderness and no pedal edema Neuro: COMMON NORMALS: oriented x3 Psych: COMMON NORMALS: mental status grossly normal Urinary Catheter Management^: Melendez: Cath Placed During This Visit: yes, but has since been removed by the nurse Urethral Indwelling: No Reason for Continuing Indwelling Catheter: Acute Urinary Retention or Obstruction Urinary Catheter Date of Insertion: 11/11/19 Urinary Catheter Time of Insertion: 00:53 Date Urinary Catheter Removed: 11/16/19 Time Urinary Catheter Discontinued: 10:42 Data : 11/16/19 03:25 11/16/19 03:25 Micro: Microbiology 11/11/19 01:13 Blood Culture - Final Blood NO GROWTH AFTER 5 DAYS 11/12/19 09:40 Blood Culture - Preliminary Blood Coagulase negativ staphylococc 11/11/19 01:38 Blood Culture - Preliminary Blood Coagulase negativ staphylococc A&P Assessment and plan (1) Fatigue: Status: Acute Code(s): R53.83 - Other fatigue (2) Bronchitis: Status: Acute Code(s): J40 - Bronchitis, not specified as acute or chronic (3) Obstructive sleep apnea: Status: Acute Code(s): G47.33 - Obstructive sleep apnea (adult) (pediatric) (4) Diastolic heart failure: Status: Acute Code(s): I50.30 - Unspecified diastolic (congestive) heart failure (5) Hypertension: Status: Acute Code(s): I10 - Essential (primary) hypertension (6) History of thyroid cancer: Status: Acute Code(s): Z85.850 - Personal history of malignant neoplasm of thyroid (7) Hypothyroidism: Status: Acute Code(s): E03.9 - Hypothyroidism, unspecified (8) Morbid obesity: Status: Acute Code(s): E66.01 - Morbid (severe) obesity due to excess calories (9) Chronic anemia: Status: Acute Code(s): D64.9 - Anemia, unspecified (10) CKD (chronic kidney disease): Status: Acute Code(s): N18.9 - Chronic kidney disease, unspecified (11) Gram-positive bacteremia: Status: Acute Code(s): R78.81 - Bacteremia (12) Pneumonia: Status: Acute Code(s): J18.9 - Pneumonia, unspecified organism (13) Pacemaker: Status: Acute Code(s): Z95.0 - Presence of cardiac pacemaker Additional A&P Information Sepsis: Blood cultures positive for GPC's. -Most likely source is pneumonia, CT of the chest showed right pulmonary infiltrates, afebrile, no significant leukocytosis, ESR 34, CRP 9, pro-Thomas 0.03 -On cultures obtained on 11/11/2019 blood cultures are positive for coagulase-negative staph -On cultures obtained on 11/12/2020 blood culture 2 out of 4 was positive for coagulase-negative staph -on review of patient's medical records, he had 4 admissions for altered mental status/pneumonia since December 2018 -He has had 4 other blood cultures positive since December 2018+ for coagulase-negative staph -As patient has had roughly 8 blood cultures positive for coagulase-negative staph it is highly likely that this is a real infection and this cannot be ignored -Patient does have a history of laminectomy and history of hardware in his back, but CT of the cervical/thoracic/lumbar spine was negative for discitis -He does have a history hardware in bilateral ankles, he did have a trimalleolar left ankle fracture in December 2018 -He does have a pacemaker in place -Transesophageal echocardiogram was negative for any vegetations pacemaker and leads look okay -He does have poor dentition, has 2 fillings Plan: -Continue vancomycin, renally dosed -Tagged WBC study tomorrow Fatigue/lethargy: Multifactorial due to sepsis and PNA, CPAP dysfunction and COPD exaerbation viral bronchitis leading to PNA. . ABG done on admission showed mild hypoxia. DuoNebs every 6 hours, budesonide twice daily. Will c/w Flonase for symptomatic treatment along with Tessalon Perles as needed. Oxygen supplementation keeping saturation over 92%. CPAP at home setting overnight. We will get care coordination consult to get help with arranging CPAP as an outpatient. History of diastolic heart failure: Last echo done few months ago shows an EF of 50-55% with grade 2 diastolic dysfunction. Overall 2 L negative . Patient seems euvolemic to mildly dehydrated today. Hold any further diuresis for today. We will continue for now and will transfer to oral from tomorrow morning. Strict intake and output charting. Daily weights. Arrhythmia/post pacemaker: Continue with home dose of metoprolol and digoxin. Digoxin levels on admission stable. Hypertension: Blood pressure well maintained today. Continue to hold off on amlodipine, lisinopril. Continue with change dose of Lopressor in divided doses for now. Will introduce his medications again once blood pressure is better. Hypothyroidism: History of thyroid cancer post thyroid and parathyroidectomy. Continue with home dose of levothyroxine. Start on PO iron supplementation History of non-Hodgkin's lymphoma, status post chemotherapy, in remission History of prostate cancer Continue chronic home medications like duloxetine, gabapentin at a lower dose of 400 4 times daily, methenamine, oxycodone 1 tab p.o. every 4 hours as needed. Cardiac diet. Full code. Lovenox for DVT prophylaxis. Famotidine for PUD prophylaxis. 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
[2019-11-16] MEDS: enoxaparin 40 mg/0.4 mL Syringe SUBCUT (15:43)
--- NOTE | 2019-11-16 16:12 | PC.NURSE ---
DR. GOEL ORDERED RENEWAL FOR PATIENT'S OXYCODONE VIA TELEPHONE.
[2019-11-16] MEDS: tamsulosin 0.4 mg Capsule PO (21:03)
[2019-11-17] VITALS (18 sets, daily range): BP systolic 111–130; BP diastolic 64–81; PULSE 69–73; RESP 11–24; TEMP 36.6–36.8; O2SAT 92–96
[2019-11-17] MEDS: famotidine 20 mg/2 mL INJ IVP ×2 (02:38→17:17)
[2019-11-17] MEDS: oxyCODONE-APAP 10-325 mg Tablet 1 TAB PO ×3 (03:30→21:59)
[2019-11-17 03:47] LABS: Basophils # 0.1 10^3/uL (0.0-0.1); Basophils % 0.9 %; Eosinophils # 0.3 10^3/uL (0.0-0.8); Eosinophils % 5.8 %; Hematocrit 33.4 % (42.0-52.0); Hemoglobin 10.4 g/dL (11.7-16.6); Lymphocytes # 1.3 10^3/uL (0.8-4.8); Lymphocytes % 23.7 %; Mean Corpuscular HGB Conc 31.1 g/dL (30.0-36.0); Mean Corpuscular Hemoglobin 29.2 pg (28.0-34.0); Mean Corpuscular Volume 93.8 fL (80-94); Mean Platelet Volume 9.4 fL (7.4-10.4); Monocytes # 0.5 10^3/uL (0.2-0.9); Monocytes % 8.3 %; Neutrophils # 3.4 10^3/uL (1.8-7.7); Neutrophils % 60.8 %; Nucleated Red Blood Cells % 0 %; Platelet Count 246 10^3/cmm (130-400); Red Blood Count 3.56 10^6/uL (4.1-5.3); Red Cell Distribution Width 14.6 % (12.1-15.1); White Blood Count 5.7 10^3/uL (4.0-10.0)
[2019-11-17 04:04] LABS: Alanine Aminotransferase 20 U/L (0-41); Alkaline Phosphatase 75 IU/L (40-130); Anion Gap 11.8 (5-19); Aspartate Amino Transferase 21 U/L (0-40); Blood Urea Nitrogen 17 mg/dL (8-23); Calcium 9.2 mg/dL (8.5-10.5); Carbon Dioxide 29 mmol/L (22-29); Chloride 101 mmol/L (98-107); Globulin 3.9 g/dL (1.3-4.6); Glucose 100 mg/dL (65-115); Magnesium 2.3 mg/dL (1.7-2.3); Phosphorus 3.8 mg/dL (2.5-4.5); Potassium 4.8 mmol/L (3.5-5.1); Sodium 137 mmol/L (136-145); Total Bilirubin 0.4 mg/dL (0.15-1.2); Total Protein 6.9 g/dL (6.6-8.7)
--- NOTE | 2019-11-17 06:00 | NM_ITS ---
WS: [id number] INDICATION: Fever of unknown origin TECHNICAL: The patient was administered 27.5 mCi of technetium 99m Ceretec labeled white blood cells and multiple whole-body, planar and left upper extremity SPECT images obtained. FINDINGS: Normal hepatic and splenic activity. Normal bone marrow activity. Ventral abdominal pannus formation eccentric to the right. Ovoid area of white blood cell activity in the right pelvis. This is nonspecific and may represent lisa wel or pelvic infection. Recommend further evaluation with CT abdomen pelvis. NM/NM CERETEC WBC scan* [id number] IMPRESSION: Ovoid area of white blood cell activity right pelvis is nonspecific and may represent bowel or pelvic infection. Recommend further evaluation with CT.
[2019-11-17] MEDS: fluticasone nasal spray 16gm Btl 1 SPRAY NASAL ×2 (09:30→18:36)
[2019-11-17] MEDS: ferrous sulfate EC 325 mg Tablet PO ×2 (09:54→18:36)
[2019-11-17] MEDS: ascorbic acid 500 mg Tablet 1000 MG PO (09:54)
[2019-11-17] MEDS: aspirin 81 mg EC Tablet PO (09:55)
[2019-11-17] MEDS: digoxin 125 mcg Tablet PO (09:55)
[2019-11-17] MEDS: budesonide 0.5 mg/2 mL Neb INHALATION ×2 (09:56→21:05)
[2019-11-17] MEDS: docusate sodium 100 mg Capsule PO ×2 (09:57→18:36)
[2019-11-17] MEDS: gabapentin 400 mg Capsule PO ×4 (09:57→21:53)
[2019-11-17] MEDS: duloxetine 60 mg Capsule PO (09:57)
[2019-11-17] MEDS: ipratropium-albuterol 3 mL Neb INHALATION ×3 (09:57→21:04)
[2019-11-17] MEDS: levothyroxine 125 mcg Tablet PO (09:57)
[2019-11-17] MEDS: metoprolol tartrate 50 mg Tablet PO ×2 (09:58→21:00)
--- NOTE | 2019-11-17 16:03 | PM.PN ---
Subjective Subjective: Interval history: Patient has no complaints this morning, awaiting his tagged white blood cell study Vitals/I&O/Wt Last Vital Signs Temp 98.2 F 11/17/19 12:00 Pulse 72 11/17/19 14:58 Resp 18 11/17/19 15:05 BP 130/81 11/17/19 12:00 Pulse Ox 93 11/17/19 15:05 11/17/19 11/17/19 11/17/19 06:59 14:59 22:59 Intake Total 350 / 882.788 200 / 200 Output Total 850 / 1675 1700 / 1700 Balance -500 / -792.212 -1500 / -1500 Weight last 48 hrs Weight 145.512 kg Weight 145.785 kg Physical Exam Const: COMMON NORMALS: no apparent distress and oriented x3 HENMT: COMMON NORMALS: normocephalic HEAD & SCALP: normocephalic Neck/C-Spine: COMMON NORMALS: no JVD Resp: COMMON NORMALS: normal respiratory effort, no retractions, no use of accessory muscles and clear to auscultation bilaterally AUSCULTATION: clear to auscultation bilaterally Cardio: COMMON NORMALS: no JVD, regular rate, regular rhythm, S1 normal heart sound and S2 normal heart sound RATE: regular rate RHYTHM: regular rhythm HEART SOUNDS: S1 normal and S2 normal GI: COMMON NORMALS: normal to inspection, nondistended, normoactive bowel sounds, soft to palpation, non-tender, no hepatosplenomegaly, no masses and no bruits PALPATION: Yes soft and Yes no hepatosplenomegaly Extremity: COMMON NORMALS: normal capillary refill, no clubbing, cyanosis or edema, no calf tenderness and no pedal edema Neuro: COMMON NORMALS: oriented x3 Psych: COMMON NORMALS: mental status grossly normal Urinary Catheter Management^: Melendez: Cath Placed During This Visit: yes, but has since been removed by the nurse Urethral Indwelling: No Reason for Continuing Indwelling Catheter: Acute Urinary Retention or Obstruction Urinary Catheter Date of Insertion: 11/11/19 Urinary Catheter Time of Insertion: 00:53 Date Urinary Catheter Removed: 11/16/19 Time Urinary Catheter Discontinued: 10:42 Data : 11/17/19 03:40 11/17/19 03:40 Micro: Microbiology 11/12/19 09:35 Blood Culture - Final Blood NO GROWTH AFTER 5 DAYS A&P Assessment and plan (1) Fatigue: Status: Acute Code(s): R53.83 - Other fatigue (2) Bronchitis: Status: Acute Code(s): J40 - Bronchitis, not specified as acute or chronic (3) Obstructive sleep apnea: Status: Acute Code(s): G47.33 - Obstructive sleep apnea (adult) (pediatric) (4) Diastolic heart failure: Status: Acute Code(s): I50.30 - Unspecified diastolic (congestive) heart failure (5) Hypertension: Status: Acute Code(s): I10 - Essential (primary) hypertension (6) History of thyroid cancer: Status: Acute Code(s): Z85.850 - Personal history of malignant neoplasm of thyroid (7) Hypothyroidism: Status: Acute Code(s): E03.9 - Hypothyroidism, unspecified (8) Morbid obesity: Status: Acute Code(s): E66.01 - Morbid (severe) obesity due to excess calories (9) Chronic anemia: Status: Acute Code(s): D64.9 - Anemia, unspecified (10) CKD (chronic kidney disease): Status: Acute Code(s): N18.9 - Chronic kidney disease, unspecified (11) Gram-positive bacteremia: Status: Acute Code(s): R78.81 - Bacteremia (12) Pneumonia: Status: Acute Code(s): J18.9 - Pneumonia, unspecified organism (13) Pacemaker: Status: Acute Code(s): Z95.0 - Presence of cardiac pacemaker Additional A&P Information Sepsis: Blood cultures positive for GPC's. -Most likely source is pneumonia, CT of the chest showed right pulmonary infiltrates, afebrile, no significant leukocytosis, ESR 34, CRP 9, pro-Thomas 0.03 -On cultures obtained on 11/11/2019 blood cultures are positive for coagulase-negative staph -On cultures obtained on 11/12/2020 blood culture 2 out of 4 was positive for coagulase-negative staph -on review of patient's medical records, he had 4 admissions for altered mental status/pneumonia since December 2018 -He has had 4 other blood cultures positive since December 2018+ for coagulase-negative staph -As patient has had roughly 8 blood cultures positive for coagulase-negative staph it is highly likely that this is a real infection and this cannot be ignored -Patient does have a history of laminectomy and history of hardware in his back, but CT of the cervical/thoracic/lumbar spine was negative for discitis -He does have a history hardware in bilateral ankles, he did have a trimalleolar left ankle fracture in December 2018 -He does have a pacemaker in place -Transesophageal echocardiogram was negative for any vegetations pacemaker and leads look okay -He does have poor dentition, has 2 fillings Plan: -Continue vancomycin, renally dosed -Tagged WBC study today Fatigue/lethargy: Multifactorial due to sepsis and PNA, CPAP dysfunction and COPD exaerbation viral bronchitis leading to PNA. . ABG done on admission showed mild hypoxia. DuoNebs every 6 hours, budesonide twice daily. Will c/w Flonase for symptomatic treatment along with Tessalon Perles as needed. Oxygen supplementation keeping saturation over 92%. CPAP at home setting overnight. We will get care coordination consult to get help with arranging CPAP as an outpatient. History of diastolic heart failure: Last echo done few months ago shows an EF of 50-55% with grade 2 diastolic dysfunction. Overall 2 L negative . Patient seems euvolemic to mildly dehydrated today. Hold any further diuresis for today. We will continue for now and will transfer to oral from tomorrow morning. Strict intake and output charting. Daily weights. Arrhythmia/post pacemaker: Continue with home dose of metoprolol and digoxin. Digoxin levels on admission stable. Hypertension: Blood pressure well maintained today. Continue to hold off on amlodipine, lisinopril. Continue with change dose of Lopressor in divided doses for now. Will introduce his medications again once blood pressure is better. Hypothyroidism: History of thyroid cancer post thyroid and parathyroidectomy. Continue with home dose of levothyroxine. Start on PO iron supplementation History of non-Hodgkin's lymphoma, status post chemotherapy, in remission History of prostate cancer Continue chronic home medications like duloxetine, gabapentin at a lower dose of 400 4 times daily, methenamine, oxycodone 1 tab p.o. every 4 hours as needed. Cardiac diet. Full code. Lovenox for DVT prophylaxis. Famotidine for PUD prophylaxis. Attestations Medical Necessity Statement*: Requires continued hospitalization, for recurrent bacteremia Coding Level of Care Code Acute [employer] Counter Manager for [facility] Fwd Diagnoses Fatigue R53.83 Bronchitis J40 Obstructive sleep apnea G47.33 Diastolic heart failure I50.30 Hypertension I10 History of thyroid cancer Z85.850 Hypothyroidism E03.9 Morbid obesity E66.01 Chronic anemia D64.9 CKD (chronic kidney disease) N18.9 Gram-positive bacteremia R78.81 Pneumonia J18.9 Pacemaker Z95.0
--- NOTE | 2019-11-17 17:13 | CTR_ITS ---
PROCEDURE INFORMATION: Exam: CT Abdomen And Pelvis With Contrast Exam date and time: 11/17/2019 7:00 PM Age: 73 years old Clinical indication: Fever; Prior surgery; Surgery date: 6+ months; Surgery type: L-sp multiple, gastric bypass; Patient HX: Bacteremia and abnormal ceretec scan; Additional info: Bactermemia unknoen source TECHNIQUE: Imaging protocol: Computed tomography of the abdomen and pelvis with intravenous contrast. Total DLP: 2031.69 mGy-cm Radiation optimization: All CT scans at this facility use at least one of these dose optimization techniques: automated exposure control; mA and/or kV adjustment per patient size (includes targeted exams where dose is matched to clinical indication); or iterative reconstruction. Contrast material: OMNI 300; Contrast volume: 95 ml; Contrast route: 20G; Other contrast: Oral, Omni 300, 25ml in 16oz H2O; COMPARISON: CT Abdomen/Pelvis [facility] [id number] 06/20/2019 9:09 AM FINDINGS: Lungs: There is increasing basilar ground-glass opacity and tree-in-bud appearance concerning for increasing pneumonitis/pneumonic infiltrates impression. Mediastinum: A small hiatal hernia is present. Liver: There are no focal liver lesions present. Gallbladder and bile ducts: Normal. No calcified stones. No ductal dilation. Pancreas: The distal body/tail the pancreas is enlarged and there is peripancreatic edema new since the prior exam concerning for acute pancreatitis. There is a masslike area of enlargement of this distal portion of the pancreas with an AP measurement of 4.3 cm. This measures about 5.9 cm in today compared to 3.8 x 2.6 cm previously. On the prior exam, this was uniformly soft tissue density. On today's exam within this area of masslike enlargement of the pancreas, there is a new focal area of decreased density within the parenchyma of the pancreas concerning for necrosis or pseudocyst measuring 4.3 x 2.6 cm in size image 38. Spleen: Normal. No splenomegaly. Adrenals: Normal. No mass. Kidneys and ureters: There is no evidence of hydronephrosis. There is no evidence of renal calcifications. There is a simple cyst in the left kidney. Stomach and bowel: No dilated loops of small bowel. There has been a gastric stapling and bypass. No obstruction of the stomach. The gastric pouch and distal stomach are unremarkable. No breakdown of the anastomosis. No contrast in the distal stomach or duodenum. The majority of the colon is very distended with stool and air similar to the prior exam in this is probable institutional bowel. No wall thickening or colitis. The distal colon is partially collapsed but previously this was distended with air and specifically, this is not a stricture. Appendix: No evidence of appendicitis. Intraperitoneal space: Unremarkable. No free air. No significant fluid collection. Vasculature: The aorta demonstrates mild atherosclerotic calcification. Lymph nodes: Unremarkable.No enlarged lymph nodes. Bladder: There is nonspecific bladder wall thickening. This may be related to incomplete distention. Reproductive: Unremarkable as visualized. Bones/joints: Osteopenia and severe degenerative changes are noted in the spine. Soft tissues: Small fat filled inguinal hernias are noted. The anterior abdominal wall extends out of the field of view. CT/CT abdomen pelvis w con* [id number] IMPRESSION: 1. Enlarged pancreas with peripancreatic edema concerning for acute pancreatitis. Increasing enlargement the distal body and tail the pancreas is noted compared to the prior exam with new central hypodensity concerning for underlying mass with central pseudocyst or necrotic mass. Follow-up with MRI is recommended. 2. There is a simple cyst in the left kidney. No follow-up is necessary. 3. No ileus or obstruction. No bowel thickening or inflammatory changes. Dilated colon filled with stool and air without wall thickening or edema compatible probable institutional bowel without obstruction similar to the prior exam. COMMENTS: Consistent with the [employer]'s Incidental Findings Committee white paper (J Am Sandra Radiol 2018): Any incidental cystic renal lesion classified in this report as too small to characterize or simple appearing is likely a benign cyst. No follow-up imaging is recommended for these lesions per consensus recommendations based on imaging criteria. Radiation Dose CTDIVOL = (mGy): DLP = 2031.69 (mGy-cm)
[2019-11-17] MEDS: enoxaparin 40 mg/0.4 mL Syringe SUBCUT (17:19)
[2019-11-17] MEDS: iohexol 300 mg/mL 50 mL Btl PO (20:55)
[2019-11-17] MEDS: iohexol 300 mg/mL 100 mL Btl IV (20:56)
[2019-11-17] MEDS: tamsulosin 0.4 mg Capsule PO (21:54)
[2019-11-18] VITALS (60 sets, daily range): BP systolic 104–123; BP diastolic 57–68; PULSE 69–78; RESP 3–26; TEMP 36.7–36.8; O2SAT 93–97
[2019-11-18] MEDS: famotidine 20 mg/2 mL INJ IVP ×2 (04:15→14:03)
[2019-11-18] MEDS: oxyCODONE-APAP 10-325 mg Tablet 1 TAB PO ×2 (05:19→14:17)
[2019-11-18 05:32] LABS: Basophils % 0.7 %; Eosinophils # 0.4 10^3/uL (0.0-0.8); Eosinophils % 7.4 %; Hematocrit 37.8 % (42.0-52.0); Hemoglobin 11.5 g/dL (11.7-16.6); Lymphocytes # 1.4 10^3/uL (0.8-4.8); Lymphocytes % 25.8 %; Mean Corpuscular HGB Conc 30.4 g/dL (30.0-36.0); Mean Corpuscular Hemoglobin 30.4 pg (28.0-34.0); Mean Platelet Volume 9.7 fL (7.4-10.4); Monocytes # 0.5 10^3/uL (0.2-0.9); Monocytes % 8.3 %; Neutrophils # 3.2 10^3/uL (1.8-7.7); Neutrophils % 57.4 %; Nucleated Red Blood Cells % 0 %; Platelet Count 264 10^3/cmm (130-400); Red Blood Count 3.78 10^6/uL (4.1-5.3); Red Cell Distribution Width 14.8 % (12.1-15.1); White Blood Count 5.6 10^3/uL (4.0-10.0)
[2019-11-18 05:55] LABS: Alanine Aminotransferase 19 U/L (0-41); Albumin Level 2.9 g/dL (3.5-5.2); Alkaline Phosphatase 77 IU/L (40-130); Anion Gap 15.7 (5-19); Aspartate Amino Transferase 17 U/L (0-40); Blood Urea Nitrogen 20 mg/dL (8-23); Calcium 9.1 mg/dL (8.5-10.5); Carbon Dioxide 25 mmol/L (22-29); Chloride 101 mmol/L (98-107); Globulin 3.9 g/dL (1.3-4.6); Glucose 88 mg/dL (65-115); Magnesium 2.3 mg/dL (1.7-2.3); Phosphorus 3.8 mg/dL (2.5-4.5); Potassium 4.7 mmol/L (3.5-5.1); Sodium 137 mmol/L (136-145); Total Bilirubin 0.4 mg/dL (0.15-1.2); Total Protein 6.8 g/dL (6.6-8.7)
[2019-11-18 06:16] LABS: C Reactive Protein 5.3 mg/L (0.0-4.9)
[2019-11-18 06:40] LABS: Procalcitonin 0.04 ng/mL (0-0.5)
[2019-11-18] MEDS: lactulose oral liq 20 gm/30 mL UDC 10 GM PO (08:19)
[2019-11-18] MEDS: budesonide 0.5 mg/2 mL Neb INHALATION (08:20)
[2019-11-18] MEDS: ipratropium-albuterol 3 mL Neb INHALATION (08:20)
[2019-11-18] MEDS: ascorbic acid 500 mg Tablet 1000 MG PO (08:20)
[2019-11-18] MEDS: levothyroxine 125 mcg Tablet PO (08:20)
[2019-11-18] MEDS: gabapentin 400 mg Capsule PO ×2 (08:21→14:03)
[2019-11-18] MEDS: duloxetine 60 mg Capsule PO (08:21)
[2019-11-18] MEDS: ferrous sulfate EC 325 mg Tablet PO (08:21)
[2019-11-18] MEDS: digoxin 125 mcg Tablet PO (08:21)
[2019-11-18] MEDS: aspirin 81 mg EC Tablet PO (08:21)
[2019-11-18] MEDS: docusate sodium 100 mg Capsule PO (08:22)
[2019-11-18] MEDS: fluticasone nasal spray 16gm Btl 1 SPRAY NASAL (08:22)
[2019-11-18] MEDS: metoprolol tartrate 50 mg Tablet PO (08:22)
[2019-11-18 08:34] LABS: Erythrocyte Sedimentation Rate 35 mm/hr (0-10)
--- NOTE | 2019-11-18 09:15 | PC.SOCIAL ---
IMM Updated Updated pt on Pg 2 IMM & provided pt with a copy & left on his bedside table. No questions voiced. Signed, dated, & timed original in chart.
[2019-11-18 11:09] LABS: Lipase 14 U/L (13-60)
--- NOTE | 2019-11-18 17:10 | PM.DCS ---
Discharge Providers Date of Admission: 11/11/19 04:57 Date of Discharge: November 18, 2019 Attending Provider at Admission: Jessica Martines MD Attending Provider at Discharge: Khurram Martino MD Primary Care Provider: Jacob Valladares DO Diagnoses at Discharge Discharge Diagnosis (1) Fatigue: Status: Acute (2) Bronchitis: Status: Acute (3) Obstructive sleep apnea: Status: Acute (4) Diastolic heart failure: Status: Acute (5) Hypertension: Status: Acute (6) History of thyroid cancer: Status: Acute (7) Hypothyroidism: Status: Acute (8) Morbid obesity: Status: Acute (9) Chronic anemia: Status: Acute (10) CKD (chronic kidney disease): Status: Acute (11) Gram-positive bacteremia: Status: Acute (12) Pneumonia: Status: Acute (13) Pacemaker: Status: Acute Reason for Visit Reason for Visit: Reason For Visit: AMS Hospital Course Discharge Summary: Abdullahi Maurice is a 73 year old male history of non-Hodgkin lymphoma diagnosed in 2009 in remission, Medullary thyroid carcinoma s/p thyroidectomy/cervical lymphadenopathy, prostate cancer status post chemotherapy, h/o gastric bypass for weight loss, pancreatic mass, HTN, cardiomyopathy, s/p PPM, CHF (EF 50-55%, gr2 diastolic dysfunction), recently diagnosed severe PAOLA with nocturnal hypoxemia, presented today with increased generalized weakness over the past 3 days with inability to gte out of bed. Patient was admitted for acute respiratory failure secondary to pneumonia and CHF exacerbation, he received broad-spectrum antibiotics, oxygen therapy, nebulizer treatments, he clinically improved, his antibiotic therapy was de-escalated, he was saturating well on room air, discharged to [facility]. For CHF exacerbation, patient was discharged on Lasix 20 mg once daily, with instructions to up titrate as needed. Patient was found to have staph epidermidis bacteremia during his admission, 2 bottles on initial admission were positive for staph epidermidis sensitive to vancomycin, repeat blood cultures 1 bottle was positive for staph epidermidis. Review of patient's medical record shows that he has had 4 other blood cultures since December 2018 with coagulase-negative staph bacteremia. Patient remained afebrile during his admission, no significant leukocytosis, no significant ESR elevation, no significant CRP elevation, no significant procalcitonin elevation. Patient does have a history of pacemaker in place. Patient CT of the chest showed pulmonary infiltrates consistent with pneumonia. Patient had CT imaging of his back given history of laminectomy, negative for discitis. Patient had a transesophageal echocardiogram which was negative for vegetations on valves or pacemaker leads. Patient does have a history of hardware in the bilateral ankles after fractures. Patient had a tagged white blood cell scan which showed an ovoid area of white blood cell activity in the right pelvis, nonspecific. CT scan of the abdomen showed patient's history of known pancreatic mass. Unfortunately have not found the source of patient's bacteremia, so far preliminary repeat blood cultures are negative. Patient has been discharged on vancomycin for a total of 16 weeks, repeat vancomycin trough tomorrow, vancomycin dosing is 1500 mg every 24 hours for now and to adjust based on VAC trough with goal of 15-20, and repeat CBC and CMP weekly. Patient was referred to infectious disease. If patient remains bacteremic, he likely will require his pacemaker leads replacement. Although patient is bacteremic, he is doing well, remains afebrile, no significant illness, no fatigue, no malaise, discharge to the correction. Patient has a known history of a pancreatic mass, managed by Dr. La, biopsied at the head and at the tail in [facility]. His CT scan showed enlarged pancreas with peripancreatic edema concerning for acute pancreatitis. However patient was asymptomatic, no abdominal pain, no significant leukocytosis, no significant CRP elevation, no significant LFT elevations. CT did show increased enlargement of distal body and tail of the pancreas, with new central hypodensity concerning for underlying mass with central pseudocyst or necrotic mass. Patient has had biopsies at [facility] in both of the head and the tail, and they have come back inconclusive. Unfortunately patient has not been able to get an MRI through [facility] due to his pacemaker. I will have the patient follow-up with Dr. La for discussion for of possible PET scan to evaluate his pancreatic mass. Physical Exam Const: COMMON NORMALS: no apparent distress and oriented x3 HENMT: COMMON NORMALS: normocephalic HEAD & SCALP: normocephalic Neck/C-Spine: COMMON NORMALS: no JVD Resp: COMMON NORMALS: normal respiratory effort, no retractions, no use of accessory muscles and clear to auscultation bilaterally AUSCULTATION: clear to auscultation bilaterally Cardio: COMMON NORMALS: no JVD, regular rate, regular rhythm, S1 normal heart sound and S2 normal heart sound RATE: regular rate RHYTHM: regular rhythm HEART SOUNDS: S1 normal and S2 normal GI: COMMON NORMALS: normal to inspection, nondistended, normoactive bowel sounds, soft to palpation, non-tender, no hepatosplenomegaly, no masses and no bruits PALPATION: Yes soft and Yes no hepatosplenomegaly Extremity: COMMON NORMALS: normal capillary refill, no clubbing, cyanosis or edema, no calf tenderness and no pedal edema Neuro: COMMON NORMALS: oriented x3 Psych: COMMON NORMALS: mental status grossly normal Urinary Catheter Management^: Melendez: Cath Placed During This Visit: yes, but has since been removed by the nurse Urethral Indwelling: No Reason for Continuing Indwelling Catheter: Acute Urinary Retention or Obstruction Urinary Catheter Date of Insertion: 11/11/19 Urinary Catheter Time of Insertion: 00:53 Date Urinary Catheter Removed: 11/16/19 Time Urinary Catheter Discontinued: 10:42 Discharge Data Data Completed and Pending: Completed Studies During Hospitalization Category Date Time Status CT abdomen pelvis w con* 11335 Rout ine Cat Scan 11/17/19 17:[address] cervical spin wo con* 44920 Rout ine Cat Scan 11/14/19 10:[address] chest wo con 7 1250 Urgent Cat Scan 11/11/19 14:[address] head wo con* 7 0450 Routine Cat Scan 11/11/19 07:[address] lumbar spine w o con* 74026 Routi ne Cat Scan 11/14/19 10:[address] thoracic spin wo con* 66525 Rout ine Cat Scan 11/14/19 10:41 Completed CXRP [XR chest 1V portable 95042] R outine Exams 11/16/19 11:15 Completed XR chest 1V aron ble 38223 Urgent Exams 11/11/19 01:20 Completed NM CERETEC WBC sc an* 20241 Stat Nuc Med 11/17/19 06:00 Completed CV echo complete* 92658 Routine Ultrasound 11/14/19 10:40 Completed CV echo transesop hageal 93509 Routi ne Ultrasound 11/15/19 14:00 Completed Pending at discharge Category Date Time Status Blood Culture AM LABS Lab 11/18/19 05:01 Results Blood Culture Sta t Lab 11/11/19 01:13 Results C Reactive Protei n AM LABS Lab 11/19/19 04:00 Ordered C Reactive Protei n AM LABS Lab 11/20/19 04:00 Ordered Complete Blood Co unt w/Auto AM LABS Lab 11/19/19 04:00 Ordered Complete Blood Co unt w/Auto AM LABS Lab 11/20/19 04:00 Ordered Comprehensive Met abolic Panel AM LA BS Lab 11/19/19 04:00 Ordered Comprehensive Met abolic Panel AM LA BS Lab 11/20/19 04:00 Ordered Magnesium AM LABS Lab 11/19/19 04:00 Ordered Magnesium AM LABS Lab 11/20/19 04:00 Ordered Phosphorus AM LAB S Lab 11/19/19 04:00 Ordered Phosphorus AM LAB S Lab 11/20/19 04:00 Ordered Procalcitonin AM LABS Lab 11/19/19 04:00 Ordered Procalcitonin AM LABS Lab 11/20/19 04:00 Ordered Sputum Culture an d Gram Stain Routi ne Lab 11/12/19 09:00 Uncollected Vancomycin Trough Timed Lab 11/18/19 20:00 Ordered Labs from last 24 hours 11/18/19 11/18/19 11/18/19 07:10 05:00 05:00 WBC RBC Hgb Hct MCV MCH MCHC RDW Plt Count MPV Neut % (Auto) Lymph % (Auto) [place] % (Auto) Eos % (Auto) Baso % (Auto) Neut # (Auto) Lymph # (Auto) [place] # (Auto) Eos # (Auto) Baso # (Auto) Nucleated RBC % (a uto) Nucleated RBCs # ESR 35 H Sodium Potassium Chloride Carbon Dioxide Anion Gap BUN Creatinine Glucose Calcium Phosphorus Magnesium Total Bilirubin AST ALT Alkaline Phosphata se C-Reactive Protein Total Protein Albumin Globulin Lipase 14 Procalcitonin 0.04 11/18/19 11/18/19 05:00 05:00 WBC 5.6 RBC 3.78 L Hgb 11.5 L Hct 37.8 L MCV 100.0 H MCH 30.4 MCHC 30.4 RDW 14.8 Plt Count 264 MPV 9.7 Neut % (Auto) 57.4 Lymph % (Auto) 25.8 [place] % (Auto) 8.3 Eos % (Auto) 7.4 Baso % (Auto) 0.7 Neut # (Auto) 3.2 Lymph # (Auto) 1.4 [place] # (Auto) 0.5 Eos # (Auto) 0.4 Baso # (Auto) 0.0 Nucleated RBC % (a uto) 0 Nucleated RBCs # 0.0 ESR Sodium 137 Potassium 4.7 Chloride 101 Carbon Dioxide 25 Anion Gap 15.7 BUN 20 Creatinine 1.2 Glucose 88 Calcium 9.1 Phosphorus 3.8 Magnesium 2.3 Total Bilirubin 0.4 AST 17 ALT 19 Alkaline Phosphata se 77 C-Reactive Protein 5.3 H Total Protein 6.8 Albumin 2.9 L Globulin 3.9 Lipase Procalcitonin Vitals: Last Vital Signs Temp 98.3 F 11/18/19 04:00 Pulse 78 11/18/19 14:35 Resp 16 11/18/19 14:35 BP 119/62 11/18/19 13:11 Pulse Ox 96 11/18/19 14:35 Discharge Plan Discharge Patient Disposition: Xfer SNF Condition: Stable Prescriptions: New metoprolol tartrate 50 mg Tablet 50 mg PO Q12H 30 Days Qty: 60 RF: 0 docusate sodium 100 mg Capsule 100 mg PO BID 30 Days Qty: 60 RF: 0 ferrous sulfate 325 mg (65 mg iron) Tablet,Delayed Release (Dr/Ec) 325 mg PO BIDWM 30 Days Qty: 60 RF: 0 fluticasone propionate 50 mcg/actuation [place],Suspension 1 spray nasal BID 30 Days Qty: 30 RF: 0 vancomycin 1,000 mg recon soln 1,500 mg IV DAILY 35 Days Qty: 10 RF: 0 Lasix 40 mg tablet 20 mg PO DAILY 30 Days Qty: 30 RF: 0 Continued methenamine hippurate 1 gram tablet 1 gm PO BID RF: 0 ascorbic acid (vitamin C) 1,000 mg tablet 1,000 mg PO DAILY RF: 0 digoxin 125 mcg (0.125 mg) tablet 125 mcg PO QDAY Qty: 90 RF: 3 alprazolam 1 mg Tablet 1 mg PO BID PRN (Reason: stress) RF: 0 Synthroid 125 mcg Tablet 125 mcg PO DAILY RF: 0 tamsulosin 0.4 mg Capsule 0.4 mg PO BEDTIME RF: 0 lisinopril 2.5 mg Tablet 2.5 mg PO DAILY RF: 0 aspirin 81 mg Tablet,Delayed Release (Dr/Ec) 81 mg PO DAILY RF: 0 oxycodone-acetaminophen 10-325 mg Tablet 1 tab PO Q4H RF: 0 gabapentin 800 mg Tablet 800 mg PO QID RF: 0 duloxetine 60 mg Capsule,Delayed Release(Dr/Ec) 60 mg PO DAILY RF: 0 Vitamin D3 125 mcg (5,000 unit) Tablet 125 mcg PO DAILY RF: 0 Held amlodipine 5 mg Tablet 5 mg PO DAILY RF: 0 Hold Instructions: Resume on 12/19/19. add based on outpatient blood pressures and until seen by physician Discontinued ciprofloxacin HCl [Cipro] 500 mg Tablet 500 mg PO BID RF: 0 metoprolol succinate 100 mg Tablet Extended Release 24 Hr 150 mg PO BEDTIME RF: 0 Discharge Orders: Discharge Order (Routine); Ordered 11/18/19 Ordered By: Khurram Martino Other Ambulatory Orders: Complete Blood Count w/Auto (WEEKLY) Timeframe: 20191125 Location: Determined by Patient Ordered By: Khurram Patmood Complete Blood Count w/Auto (WEEKLY) Timeframe: 20191126 Location: Determined by Patient Ordered By: Khurram Patmood Complete Blood Count w/Auto (WEEKLY) Timeframe: 20191127 Location: Determined by Patient Ordered By: Khurram Patmood Complete Blood Count w/Auto (WEEKLY) Timeframe: 20191128 Location: Determined by Patient Ordered By: Khurram Patmood Complete Blood Count w/Auto (WEEKLY) Timeframe: 20191129 Location: Determined by Patient Ordered By: Khurram Patmood Comprehensive Metabolic Panel (WEEKLY) Timeframe: 20191126 Facility: [facility] - Location: Lab - Main Lab Ordered By: Khurram Martino Comprehensive Metabolic Panel (WEEKLY) Timeframe: 20191127 Facility: [facility] - Location: Lab - Main Lab Ordered By: Khurram Martino Comprehensive Metabolic Panel (WEEKLY) Timeframe: 20191128 Facility: [facility] - Location: Lab - Main Lab Ordered By: Khurram Martino Comprehensive Metabolic Panel (WEEKLY) Timeframe: 20191129 Facility: [facility] - Location: Lab - Main Lab Ordered By: Khurram Martino Vancomycin Trough (Routine) Timeframe: 1 Day Facility: [facility] - Location: Lab - Main Lab Ordered By: Khurram Martino DME: CPAP (Order) Location: None Selected Ordered By: Master Begum DME: Walker (Order) Location: None Selected Ordered By: Master Begum Referrals: RICHELLE MESSER MD [Referring] - 7-10 days Jacob Valladares DO [Family Provider] - 1 week Horacio La MD [Staff Physician] - 1 week Discharge Diet: Regular Discharge Activity: Resume usual activity Patient Instructions: Transesophageal Echocardiogram (DC) Activity Restrictions/Additional Instructions: -Patient needs new CPAP as outpatient -For patient's staph epidermidis bacteremia, vancomycin for a total of 6 weeks and a follow-up with infectious disease -So far patient is on 1500 mg every 24 hours based on Vanco trough of 27, next trough is due tomorrow, adjust dose based on trough, aim for trough between 15-20, -Repeat CBC and CMP weekly, Vanco trough based on pharmacy protocol -Patient is to follow-up with infectious disease in 1 to 2 weeks -Patient needs to follow-up with Dr. La in 1 to 2 weeks Discharge Attestations Time Spent in Discharge Care*: less than 30 min Quality Metrics Clinical Quality Measures During this hospital stay, did patient experience: None Coding Level of Care Code Acute Administrative Tech for g Fwd Diagnoses Fatigue R53.83 Bronchitis J40 Obstructive sleep apnea G47.33 Diastolic heart failure I50.30 Hypertension I10 History of thyroid cancer Z85.850 Hypothyroidism E03.9 Morbid obesity E66.01 Chronic anemia D64.9 CKD (chronic kidney disease) N18.9 Gram-positive bacteremia R78.81 Pneumonia J18.9 Pacemaker Z95.0
== END 2019-11-18 16:00 | disposition skilled nursing facility (03) | DRG 193 ==
LOC: ER 01:48 → CSU 05:17
PROVIDERS: Internal Medicine Cardiovascular Disease; Student in an Organized Health Care Education/Training Program; Admitting Provider Student in an Organized Health Care Education/Training Program; Emergency Provider Emergency Medicine; Family Provider Electrodiagnostic Medicine; PCP Electrodiagnostic Medicine; Visit Provider Family Medicine
PROC: B24BZZ4 Ultrasonography of Heart with Aorta, Transesophageal (ICD-10-PCS; CPT 93312; principal; 2019-11-15 14:00)
DX: J18.9 Pneumonia, unspecified organism (principal); I50.33 Acute on chronic diastolic (congestive) heart failure; J96.00 Acute respiratory failure, unspecified whether with hypoxia or hypercapnia; I13.0 Hypertensive heart and chronic kidney disease with heart failure and stage 1 through stage 4 chronic kidney disease, or unspecified chronic kidney disease; J44.0 Chronic obstructive pulmonary disease with (acute) lower respiratory infection; J44.1 Chronic obstructive pulmonary disease with (acute) exacerbation; I42.9 Cardiomyopathy, unspecified; Z85.72 Personal history of non-Hodgkin lymphomas; Z85.850 Personal history of malignant neoplasm of thyroid; E89.0 Postprocedural hypothyroidism; Z98.84 Bariatric surgery status; N18.9 Chronic kidney disease, unspecified; G47.33 Obstructive sleep apnea (adult) (pediatric); D63.1 Anemia in chronic kidney disease; N52.9 Male erectile dysfunction, unspecified; E66.01 Morbid (severe) obesity due to excess calories; Z68.38 Body mass index [BMI] 38.0-38.9, adult; Z95.0 Presence of cardiac pacemaker; C61 Malignant neoplasm of prostate; Z87.440 Personal history of urinary (tract) infections; Z87.442 Personal history of urinary calculi; Z87.891 Personal history of nicotine dependence; R53.83 Other fatigue; Z79.82 Long term (current) use of aspirin; B95.7 Other staphylococcus as the cause of diseases classified elsewhere; Z98.1 Arthrodesis status; Z92.21 Personal history of antineoplastic chemotherapy; K86.9 Disease of pancreas, unspecified
CPT/HCPCS: 12345; 36415; 36416; 36569; 36592; 36600; 51702; 70450; 71045; 71250; 72125; 72128; 72131; 74177; 78806; 80053; 80162; 80202; 80307; 81001; 82140; 82550; 82803; 82962; 83036; 83540; 83550; 83605; 83690; 83735; 83880; 84100; 84145; 85025; 85651; 86140; 87040; 87077; 87086; 87186; 87205; 87449; 87641; 87804; 93005; 93306; 93312; 93320; 93325; 94640; 94660; 96372; 96375; 97161; 97530; 99283; A9569; J0696; J1650; J1940; J2543; J3370; J3490; J7030; J7050; J7626; Q9967

== ENCOUNTER 2019-12-02 07:00 | Outpatient (CLI) | payer OTHER, SELFPAY ==
[2019-12-02 16:41] LABS: Vancomycin Trough 15.6 ug/mL (10-15)
== END 2019-12-02 07:01 | disposition home or self-care (01) ==
LOC: LAB 12-25 09:59
PROVIDERS: Family Provider Electrodiagnostic Medicine; Visit Provider Internal Medicine
DX: Z01.89 Encounter for other specified special examinations (principal)
CPT/HCPCS: 80202

== ENCOUNTER 2019-12-14 08:20 | Outpatient (CLI) | payer MEDICARE, BC, SELFPAY ==
--- NOTE | 2019-12-14 11:12 | ONC FU_ITS ---
Dr. La follow up note Patient: Abdullahi Maurice Unit #: [id number]: 1945 Dicatated By: Horacio La M.D.Date of Visit:Dec 14, 2019 Onc Med Follow-up/Prog Note History of Present Illness: Mr. Abdullahi Maurice, 73 year-old gentleman with history of non-Hodgkin lymphoma diagnosed in 2009 , at that time underwent systemic chemotherapy, presumably R-CHOP, achieved complete remission , which was again confirmed with recently done CT PET scan . As per patient he underwent yearly CT PET scan on 05/27/2018 for history of lymphoma and there was an incidental finding showed increased activity in left lobe of thyroid for which he was referred to ENT and on 06/15/2018 he underwent ultrasound-guided FNA of left thyroid nodule which showed medullary thyroid carcinoma. Biopsy from right thyroid nodule was benign.. As per ENT evaluation total thyroidectomy with cervical lymph node dissection was Recommended and patient underwent thyroidectomy with cervical lymph node dissection at [facility] and now being followed by endocrinology there Patient has history of gastric bypass for weight reduction, Patient denies any dysphagia, denies any respiratory distress, denies any neck pain, denies any fever chills, denies any headaches blurred vision double vision, denies any facial flushing, denies any nausea vomiting, denies any fever or chills.Denies any night sweats, denies any diarrhea constipation, denies any wheezing or shortness of breath or palpitation. Patient lost follow-up and never came back since 07/11/2018 since then he was found to have pancreatic tail mass seen on CT scan of abdomen pelvis done on 06/20/2019, as per patient he was evaluated by Dr. Gagnon in [place] and he was referred to who did biopsy of the pancreatic mass and result was Nondiagnostic Now scheduled for MRI scan of abdomen on 09/06/2019 Came for follow-up, denies any specific complaints, no fever or chills, no nausea vomiting, no hemoptysis or hematemesis, no jaundice. Patient said he is on daily IV antibiotics but doesn't remember who prescribed and what kind of antibiotic and what was a reason. And no information available to us at this point either. Since his last visit patient was supposed to go to [place] for MRI scan of abdomen, as per 's plan but patient said he was rescheduled, in fact he said he had another pancreatic mass biopsy done and it was inconclusive now Dr. gagnon and Dr. Stover in [place] are following and managing his pancreatic mass. denies night sweats, patient denies weight loss or peripheral lymphadenopathy. Medications: Artificial Tears 1 gtt(s) (of 0.5 %) Solution Ophthalmic PRN, Aspirin 1 Tablet (of 81 mg) Oral daily, Culturelle 1 Capsule Oral daily PRN, Digox 1 Tablet (of 125 mcg) Oral daily, Docusate Sodium 1 Tablet (of 100 mg) Oral b.i.d., Dulcolax 1 Suppository (of 10 mg) Rectal PRN, DULoxetine HCl 1 Capsule (of 60 mg) Capsule Delayed Release Particles Oral at bedtime, Ferrous Sulfate 1 Tablet (of 325 (65 fe) mg) Oral b.i.d., Flonase 2 [place](s) (of 50 mcg/act) Suspension Nasal b.i.d., Gabapentin 1 Tablet (of 400 mg) Oral four times a day, HM Milk of Magnesia 30 mL (of 400 mg/15mL) Suspension Oral PRN, Ipratropium-Albuterol 1 Vial(s) Solution Inhalation four times a day, Lasix 1 Tablet (of 20 mg) Oral daily, Lisinopril 1 Tablet (of 2.5 mg) Oral b.i.d., Methenamine Hippurate 1 Tablet (of 1 g) Oral b.i.d., Metoprolol Tartrate 1 Tablet (of 50 mg) Oral b.i.d., oxyCODONE HCl 1 Tablet Oral q 4 hours, Oxycodone-Acetaminophen 1 Tablet (of 10-325 mg) Oral q 4 hours, Promethazine-DM 1 - 2 tsp (of 6.25-15 mg/5mL) Solution Oral q 6 hours PRN, SM Vitamin C 1 Tablet (of 1000 mg) Oral b.i.d., Synthroid 1 Tablet (of 125 mcg) Oral daily, Tamsulosin HCl 1 Capsule (of 0.4 mg) Oral daily, Vitamin D3 1 Tablet (of 5000 Units) Oral daily, Xanax 1 Tablet (of 1 mg) Oral b.i.d. PRN Allergies: No Known Allergies. Review of Systems: Constitutional - Appetite is fair and weight is decreasing. No fever, chills, hot flashes, or night sweats. Energy level is poor, ENMT - No sinus congestion/drainage. No mouth sores. No sore throat or difficulty swallowing, Hematologic/Lymphatic - No abnormal bruising or bleeding, Respiratory - Occasional shortness of breath. No cough. No pleuritic pain or hemoptysis, Cardiovascular - No angina pain. No palpitations, Gastrointestinal - No nausea or vomiting. No heartburn or acid reflux. No diarrhea or constipation. No blood in the stool or black stools, Genitourinary (M) - No dysuria or hematuria. No urinary frequency. No urgency or incontinence, Musculoskeletal - No joint or bone pain, Neurologic - No headache or dizziness. No numbness/paresthesias or other focal neurologic symptoms, Psychiatric - No anxiety or depression. No insomnia. Vital Signs: Performed on Dec 14, 2019 08:28 Height - 76.00 in Weight - 333.0 lbs (HIGH) BSA - 2.75 sq.m BMI - 40.53 (HIGH) Temperature - 97.6 F (LOW) Pulse - 70 /min Respiration - 22 /min BP - 99/56 mm(hg) O2 Sat - 97 % Pain - 9 Performance Status: 2 - Ambulatory/capable of all self-care, unable to perform any work activities. Up and about more than 50% of waking hours. (ECOG) Physical Examination: Respiratory - poor air entry, Cardiovascular - Regular rate and rhythm of heart, Extremities - 2+ edema bilaterally. Lab/Imaging: Test performed on Dec 13, 2019 05:25 Digoxin (Lanoxin) 0.41 ng/mL Glucose 76 mg/dL BUN 31 mg/dL Creatinine 1.5 mg/dL Sodium 140 mmol/L Potassium 4.7 mmol/L Chloride 106 mmol/L CO2 29.1 mmol/L Calcium 8.7 mg/dL WBC 5.8 10^9/L RBC 3.82 10^12/L HGB 12.0 g/dL HCT 37.1 % MCV 97.2 fl MCH 31.4 pg MCHC 32.3 g/dL RDW 17.4 % Platelet Count 215 10^9/L Neutrophils (Gran) 3.30 10^9/L Lymphocytes 1.30 10^9/L Monocytes 0.60 10^9/L Eosinophils 0.60 10^9/L Basophils 0.10 10^9/L Manual Lymphocytes 22.7 % Manual Monocytes 9.6 % Manual Eosinophils 9.5 % Manual Basophils 1.4 % Test performed on Oct 02, 2019 09:22 Cr Clearance (Est) 110.24 mL/min Protein, Total 6.9 g/dL Albumin 3.4 g/dL Globulin 3.5 g/dL Bilirubin, Total 0.4 mg/dL Alkaline Phosphatase 94 IU/L AST (SGOT) 19 IU/L ALT (SGPT) 21 IU/L MPV 9.6 fL Neutrophil % 4.9 % NRBCs 0.0 /100 WBC Test performed on Sep 01, 2019 10:45 Anion Gap 16.1 Lymphocyte % 12.1 % Monocyte % 4.4 % Eosinophil % 0.3 % Basophils % 0.2 % Impression: Medullary thyroid carcinoma per ultrasound guided FNA of left thyroid nodule on 06/15/2018.As per patient he underwent thyroidectomy/cervical lymphadenopathy done at [facility],Now being followed by ENT/endocrinology at [facility] History of non-Hodgkin lymphoma diagnosed in 2009 status post presumably R-CHOP, now in remission. Reconfirmed with CT PET scan done on May 27 which showed no evidence of recurrence except incidental finding of left thyroid nodule History of gastric bypass surgery for weight lossNext Newly diagnosed pancreatic tail mass per CT scan of abdomen done on 06/20/2019 status post biopsy, result is pending Plan: Discussed with patient regarding his labs from 12/13/2019 which showed white blood count 5.8 hemoglobin 12 hematocrit 37.1 platelets 215,000 and BMP within normal limit except creatinine 1.5, Clinically, patient is doing reasonably well with no signs symptoms suggestive of recurrence of lymphoma. As far as pancreatic mass is concern, now being evaluated by Dr. Gagnon and Dr. Stover in [place], and patient is satisfied with their plan. As far as medullary thyroid carcinoma is concern patient being followed by ENT/endocrinology at [facility] in [place]. We will continue to observe and he will return to clinic in 3 months unless is a pancreatic mass evaluation confirms malignancy and Dr. Gagnon need our assistance. We will obtain record from Drs. Gagnon/Ck's office. Signed By: Horacio La M.D. <<Signature on File>>
== END 2019-12-14 08:21 | disposition home or self-care (01) ==
LOC: ONCMED 08:22
PROVIDERS: Family Provider Electrodiagnostic Medicine; PCP Electrodiagnostic Medicine; Visit Provider Internal Medicine Hematology & Oncology
DX: Z08 Encounter for follow-up examination after completed treatment for malignant neoplasm (principal); Z85.72 Personal history of non-Hodgkin lymphomas; Z85.850 Personal history of malignant neoplasm of thyroid; E89.0 Postprocedural hypothyroidism; K86.9 Disease of pancreas, unspecified; Z79.82 Long term (current) use of aspirin; Z79.891 Long term (current) use of opiate analgesic; Z98.84 Bariatric surgery status; Z92.21 Personal history of antineoplastic chemotherapy
CPT/HCPCS: G0463

== ENCOUNTER 2019-12-16 06:09 | Outpatient (CLI) | payer MEDICARE, BC, SELFPAY ==
[2019-12-16 06:43] LABS: Vancomycin Trough 14.9 ug/mL (10-15)
== END 2019-12-16 06:10 | disposition home or self-care (01) ==
LOC: LAB 06:12
PROVIDERS: Family Provider Electrodiagnostic Medicine; PCP Electrodiagnostic Medicine; Visit Provider Internal Medicine
DX: R78.81 Bacteremia (principal)
CPT/HCPCS: 80202

== ENCOUNTER 2019-12-22 06:19 | Outpatient (REF) | payer OTHER, SELFPAY ==
[2019-12-22 06:34] LABS: Vancomycin Trough 13.4 ug/mL (10-15)
== END 2019-12-22 06:20 | disposition home or self-care (01) ==
LOC: LAB 06:19
PROVIDERS: Family Provider Electrodiagnostic Medicine; PCP Electrodiagnostic Medicine; Visit Provider Internal Medicine
DX: Z01.89 Encounter for other specified special examinations (principal)
CPT/HCPCS: 80202

== ENCOUNTER 2020-01-22 11:41 | Outpatient (CLI) | payer MEDICARE, BC, SELFPAY ==
--- NOTE | 2020-01-22 12:03 | XR_ITS ---
WS: [id number] CHEST 2 VIEWS HISTORY: CHRONIC SYSTOLIC HEART FAILURE, PNEUMONIA, PANCREATIC MASS COMPARISON: 11/16/2019 Lungs: Hyperexpanded lungs with changes of emphysema. No pneumonia. Normal vasculature. No pulmonary nodules. Cardiac size: Normal. Mediastinum/Aorta: No mediastinal widening. Surgical sutures are noted over the upper thorax. LEFT carrillo bclavian cardiac pacer. Bones: Increase in thoracic kyphosis. XR/XR chest 2V* [id number] IMPRESSION: Severe emphysema with no pneumonia or pulmonary nodules.
== END 2020-01-22 11:42 | disposition home or self-care (01) ==
PROVIDERS: Family Provider Electrodiagnostic Medicine; PCP Electrodiagnostic Medicine; Visit Provider Electrodiagnostic Medicine
DX: I50.22 Chronic systolic (congestive) heart failure (principal); J18.9 Pneumonia, unspecified organism; K86.9 Disease of pancreas, unspecified; J43.9 Emphysema, unspecified
CPT/HCPCS: 71046

== ENCOUNTER → 2020-01-30 09:37 | Outpatient (BNVA) | payer MEDICARE, BC, SELFPAY | PROVIDERS: Family Provider Electrodiagnostic Medicine; PCP Electrodiagnostic Medicine; Visit Provider Nurse Practitioner Family | DX: N39.0 Urinary tract infection, site not specified (principal); N52.9 Male erectile dysfunction, unspecified; R39.9 Unspecified symptoms and signs involving the genitourinary system | CPT/HCPCS: 81001 ==

== ENCOUNTER 2020-02-07 12:49 | Outpatient (CLI) | payer MEDICARE, BC, SELFPAY ==
--- NOTE | 2020-02-07 13:00 | XR_ITS ---
WS: [id number] CHEST 2 VIEWS HISTORY: CHF, PANCREATIC CANCER, CHRONIC KIDNEY DISEASE COMPARISON: 01/22/2020 Lungs: Mild pulmonary hyperexpansion. No pneumonia. Normal vasculature. Cardiac size: Normal. Mediastinum/Aorta: Mild atherosclerosis aorta. LEFT subclavian dual lead cardiac pacer. There are add itional postsurgical clips at the thoracic inlet. Bones: Mild increase in thoracic kyphosis. XR/XR chest 2V* [id number] IMPRESSION: 1. Mild hyperexpansion. No pneumonia. 2. No CHF. 3. Mild atherosclerosis aorta.
== END 2020-02-07 12:50 | disposition home or self-care (01) ==
LOC: RADWPI 12:53
PROVIDERS: Family Provider Electrodiagnostic Medicine; PCP Electrodiagnostic Medicine; Visit Provider Electrodiagnostic Medicine
DX: C25.9 Malignant neoplasm of pancreas, unspecified (principal); I50.22 Chronic systolic (congestive) heart failure; N18.3 Chronic kidney disease, stage 3 (moderate); G93.40 Encephalopathy, unspecified; I70.0 Atherosclerosis of aorta; I11.0 Hypertensive heart disease with heart failure
CPT/HCPCS: 71046

== ENCOUNTER 2020-02-19 13:35 | Emergency (ER) | payer MEDICARE, BC, SELFPAY ==
[2020-02-19 13:37] VITALS: BP 116/53; PULSE 79; RESP 17; TEMP 37.1; O2SAT 98; BMI 39.8
--- NOTE | 2020-02-19 14:01 | W.ED.AMS ---
HPI - Altered Mental Status General: Chief Complaint: Altered Mental Status Stated Complaint: AMS Time Seen by Provider: 02/19/20 13:40 History of Present Illness: HPI narrative: 74 yo male presents emergency room complaining of a low-grade fever he states whenever he gets a fever he gets confused and talks out of his head. He states it started last night he also states he has not really urinated much since last night he thinks he may have had a single episode of incontinence. Denies any chest pain or shortness of breath he has had no vomiting some nausea couple days ago he had some diarrhea to 2 days ago he took some [id number] antidiarrheal medications not had a bowel movement since then he denies any abdominal pain. Denies any hematemesis coffee-ground emesis any melena. He has had a history of urinary retention in the past. Reports his fevers are subjective he cannot give me an exact temp that he measured in the past. His biggest complaint at the time of the exam is back and right leg pain which he states is chronic. Shortness of breath cough or congestion. Review of Systems Const: Denies: fever(s), chills, body aches, change in appetite, fatigue or malaise ENMT: Denies: throat pain, ear or mastoid pain, nasal discharge or nasal congestion Card: Denies: chest pain, edema, dyspnea on exertion or orthopnea Resp: Denies: dyspnea, productive cough or non-productive cough GI: Denies: abdominal pain, nausea, vomiting, hematemesis, coffee ground emesis, diarrhea, constipation, bloating, hematochezia or melena : Denies: flank pain, dysuria, urinary frequency or urinary urgency Skin/Breast: Denies: rash or pruritus PFSH ED PFSH: Medical History Acute on chronic diastolic (congestive) heart failure Arrhythmia Chronic anemia CKD (chronic kidney disease) 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 coli infection History of thyroid cancer Hypertension Hypothyroidism Lower urinary tract symptoms Morbid obesity Obstructive sleep apnea Pacemaker Prostate cancer Recurrent UTI Urinary incontinence Urolithiasis Surgical History History of gastric bypass History of parathyroidectomy History of permanent cardiac pacemaker placement History of spinal surgery MULTIPLE LOWER SPINE SURGERY History of thyroidectomy Hx of tonsillectomy Family History Sister Cancer Father , at age 73 CAD (coronary artery disease) Mother , at age 76 Alzheimer's dementia Social History Smoking and tobacco status: never smoked Alcohol intake: former Adopted: No Caregiver/support person: No Lives independently: No Household members: spouse Marital status: Current occupational status: retired History of recent travel: No Physical Exam Const: COMMON NORMALS: no acute distress GENERAL APPEARANCE: cooperative and comfortable ORIENTATION/CONSCIOUSNESS: Yes awake, Yes oriented to person, Yes oriented to place and Yes oriented to time HENMT: COMMON NORMALS: normocephalic, atraumatic, hearing grossly normal bilaterally, external ears normal, EAC's normal, TM's normal bilaterally, Normal nasal mucous membranes and turbinates present, moist oral mucous membranes and oropharynx normal HEAD & SCALP: normocephalic and atraumatic NOSE: Normal nasal mucous membranes and turbinates present EXTERNAL EAR: Yes external ears normal EXTERNAL AUDITORY CANAL: EAC's normal TYMPANIC MEMBRANE: TM's normal bilaterally Eye: COMMON NORMALS: Equal, round and reactive pupils present, EOMs intact bilaterally, conjunctivae normal and no scleral icterus CONJUNCTIVA: Yes conjunctivae normal PUPIL: Yes Equal, round and reactive pupils present Neck/C-Spine: COMMON NORMALS: full ROM, no lymphadenopathy, supple and no JVD Lymph: LYMPHATIC: no lymphadenopathy noted and no lymphedema noted Resp: COMMON NORMALS: normal respiratory effort, No retractions, No use of accessory muscles and clear to auscultation bilaterally AUSCULTATION: clear to auscultation bilaterally Cardio: COMMON NORMALS: no JVD, regular rate, regular rhythm and No murmurs present (Cardio) RATE: regular rate RHYTHM: regular rhythm GI: COMMON NORMALS: Soft to palpation INSPECTION: Yes central obesity AUSCULTATION: Yes Hypoactive bowel sounds present PALPATION: Yes Soft to palpation, Yes Tenderness to palpation present (GI) and No Guarding due to palpation present (GI) Extremity: COMMON NORMALS: capillary refill normal and no pedal edema NARRATIVE EXTREMITY EXAM: Chronic deformity of the right ankle with scarring from previous surgeries no significant edema negative Homans sign Neuro: SENSORIUM/ORIENTATION: Yes oriented to person, Yes oriented to place and Yes oriented to time Skin: COMMON NORMALS: no rashes or lesions noted GENERAL SKIN EXAM: no rashes or lesions noted Course Vital Signs: Vital signs: Vital Signs Temperature 98.7 F 02/19/20 13:37 Pulse Rate 74 02/19/20 18:00 Respiratory Rate 16 02/19/20 18:00 Blood Pressure 149/86 02/19/20 18:00 Pulse Oximetry 97 02/19/20 18:00 MDM - Altered Mental Status MDM Narrative: Medical decision making narrative: ? Is normal he does have a mildly elevated white count. Repeat exam lungs are clear heart regular. He would prefer to go home and find this point would discharge him home with his regular medications no changes at this time he has any worsening changes symptoms he is to return immediately Lab Data: Labs: Lab Results 02/19/20 02/19/20 02/19/20 Range/Units 13:41 13:41 13:41 WBC 13.1 H (4.0-10.0) 10^3/ uL RBC 3.69 L (4.1-5.3) 10^6/u L Hgb 11.2 L (11.7-16.6) g/dL Hct 35.5 L (42.0-52.0) % MCV 96.2 H (80-94) fL MCH 30.4 (28.0-34.0) pg MCHC 31.5 (30.0-36.0) g/dL RDW 13.8 (12.1-15.1) % Plt Count 185 (130-400) 10^3/c mm MPV 10.3 (7.4-10.4) fL Neut % (Auto) 85.4 % Lymph % (Auto) 8.3 % [place] % (Auto) 5.0 % Eos % (Auto) 0.5 % Baso % (Auto) 0.4 % Neut # (Auto) 11.2 H (1.8-7.7) 10^3/u L Lymph # (Auto) 1.1 (0.8-4.8) 10^3/u L [place] # (Auto) 0.7 (0.2-0.9) 10^3/u L Eos # (Auto) 0.1 (0.0-0.8) 10^3/u L Baso # (Auto) 0.1 (0.0-0.1) 10^3/u L Nucleated RBC % (a uto) 0 % Nucleated RBCs # 0.0 /100WBC Specimen Type Sample Site ABG pH (7.35-7.45) ABG pCO2 (35-45) mmHg ABG pO2 (80.0-100.0) mmH g ABG HCO3 (22-26) mmol/L ABG O2 Saturation ABG Base Excess (-2.0-2.0) mmol/ L Shalom Test A-a O2 Gradient (5-10) mmHg Hematocrit (42-52) % Hgb O2 Saturation (95-100) % Carboxyhemoglobin (0.4-20.1) %THgb Methemoglobin (0.4-1.5) % Total Hemoglobin (14-18) g/dL Ionized Calcium (1.1-1.4) mmol/L O2 Delivery Device O2 Liters/Min % FiO2 % Jumpbasting Machine Operator ID Sodium 140 (136-145) mmol/L Potassium 4.2 (3.5-5.1) mmol/L Chloride 103 (98-107) mmol/L Carbon Dioxide 27 (22-29) mmol/L Anion Gap 14.2 (5-19) BUN 20 (8-23) mg/dL Creatinine 1.2 (0.7-1.2) mg/dL Glucose 98 (65-115) mg/dL Calculated Osmolal ity 287 (285-295) mOsm/k g Lactate (0.5-2.2) mmol/L Calcium 8.8 (8.5-10.5) mg/dL Total Bilirubin 0.7 (0.15-1.2) mg/dL AST 16 (0-40) U/L ALT 12 (0-41) U/L Alkaline Phosphata se 61 (40-130) IU/L Total Protein 6.2 L (6.6-8.7) g/dL Albumin 3.1 L (3.5-5.2) g/dL Globulin 3.1 (1.3-4.6) g/dL Lipase 9 L (13-60) U/L Urine Color (Yellow) Urine Appearance (CLEAR) Urine pH (5-7) Ur Specific Gravit y (1.005-1.030) Urine Protein (Negative) Urine Glucose (UA) (Normal) Urine Ketones (Negative) Urine Blood (Negative) Urine Nitrate (Negative) Urine Bilirubin (NEGATIVE) Urine Urobilinogen (Negative) mg/dL Ur Leukocyte Kierra ase (Negative) Urine RBC (0-2) /hpf Urine WBC (0-5) /hpf Ur Squamous Epith Cells (0-5) Urine Bacteria (NONE) Serum Ketones Negative (Negative) 02/19/20 02/19/20 02/19/20 Range/Units 14:24 14:35 15:33 WBC (4.0-10.0) 10^3/ uL RBC (4.1-5.3) 10^6/u L Hgb (11.7-16.6) g/dL Hct (42.0-52.0) % MCV (80-94) fL MCH (28.0-34.0) pg MCHC (30.0-36.0) g/dL RDW (12.1-15.1) % Plt Count (130-400) 10^3/c mm MPV (7.4-10.4) fL Neut % (Auto) % Lymph % (Auto) % [place] % (Auto) % Eos % (Auto) % Baso % (Auto) % Neut # (Auto) (1.8-7.7) 10^3/u L Lymph # (Auto) (0.8-4.8) 10^3/u L [place] # (Auto) (0.2-0.9) 10^3/u L Eos # (Auto) (0.0-0.8) 10^3/u L Baso # (Auto) (0.0-0.1) 10^3/u L Nucleated RBC % (a uto) % Nucleated RBCs # /100WBC Specimen Type Arterial Sample Site Brachial, right ABG pH 7.44 (7.35-7.45) ABG pCO2 41.1 (35-45) mmHg ABG pO2 81.8 (80.0-100.0) mmH g ABG HCO3 27.8 H (22-26) mmol/L ABG O2 Saturation 96.1 ABG Base Excess 3.4 H (-2.0-2.0) mmol/ L Shalom Test Pos A-a O2 Gradient 65.8 H (5-10) mmHg Hematocrit 35.0 L (42-52) % Hgb O2 Saturation 94.6 L (95-100) % Carboxyhemoglobin 0.5 (0.4-20.1) %THgb Methemoglobin 1.1 (0.4-1.5) % Total Hemoglobin 11.4 L (14-18) g/dL Ionized Calcium 1.1 (1.1-1.4) mmol/L O2 Delivery Device Nc O2 Liters/Min 2.0 % FiO2 28.0 % Jumpbasting Machine Operator ID cak Sodium 140.0 (136-145) mmol/L Potassium 3.9 (3.5-5.1) mmol/L Chloride (98-107) mmol/L Carbon Dioxide (22-29) mmol/L Anion Gap (5-19) BUN (8-23) mg/dL Creatinine (0.7-1.2) mg/dL Glucose 88.0 (65-115) mg/dL Calculated Osmolal ity (285-295) mOsm/k g Lactate 1.2 (0.5-2.2) mmol/L Calcium (8.5-10.5) mg/dL Total Bilirubin (0.15-1.2) mg/dL AST (0-40) U/L ALT (0-41) U/L Alkaline Phosphata se (40-130) IU/L Total Protein (6.6-8.7) g/dL Albumin (3.5-5.2) g/dL Globulin (1.3-4.6) g/dL Lipase (13-60) U/L Urine Color Yellow (Yellow) Urine Appearance Hazy A (CLEAR) Urine pH 5 (5-7) Ur Specific Gravit y 1.020 (1.005-1.030) Urine Protein Neg (Negative) Urine Glucose (UA) Norm (Normal) Urine Ketones Negative (Negative) Urine Blood Neg (Negative) Urine Nitrate Negative (Negative) Urine Bilirubin Neg (NEGATIVE) Urine Urobilinogen Norm (Negative) mg/dL Ur Leukocyte Kierra ase Negative (Negative) Urine RBC None (0-2) /hpf Urine WBC 5-10 H (0-5) /hpf Ur Squamous Epith Cells 10-15 H (0-5) Urine Bacteria 1+ H (NONE) Serum Ketones (Negative) Discharge Plan Discharge Patient Disposition: Home, Self-Care Clinical Impression: History of thyroid cancer, Hypothyroidism, Obstructive sleep apnea, Morbid obesity, History of permanent cardiac pacemaker placement Condition: Stable Prescriptions: No Action docusate sodium 100 mg capsule 100 mg PO BID PRN (Reason: UNKNOWN) RF: 0 ferrous sulfate 325 mg (65 mg iron) tablet 325 mg PO BID RF: 0 furosemide 20 mg tablet 20 mg PO QAM RF: 0 metoprolol succinate 50 mg tablet extended release 24 hr 150 mg PO BEDTIME RF: 0 bisacodyl 5 mg tablet 5 mg PO DAILY PRN (Reason: UNKNOWN) RF: 0 methenamine hippurate 1 gram tablet 1 gm PO BID Qty: 60 RF: 12 ascorbic acid (vitamin C) 1,000 mg tablet 1,000 mg PO BID RF: 0 digoxin 125 mcg (0.125 mg) tablet 125 mcg PO DAILY RF: 0 alprazolam 1 mg Tablet 1 mg PO TID PRN (Reason: stress) RF: 0 levothyroxine [Synthroid] 125 mcg Tablet 125 mcg PO DAILY RF: 0 tamsulosin 0.4 mg Capsule 0.4 mg PO BEDTIME RF: 0 amlodipine 5 mg Tablet 5 mg PO DAILY RF: 0 Hold Instructions: Resume on 12/19/19. add based on outpatient blood pressures and until seen by physician lisinopril 2.5 mg Tablet 2.5 mg PO DAILY RF: 0 aspirin 81 mg Tablet,Delayed Release (Dr/Ec) 81 mg PO DAILY RF: 0 oxycodone-acetaminophen 10-325 mg Tablet 1 tab PO Q4H PRN (Reason: Pain) RF: 0 gabapentin 800 mg Tablet 800 mg PO QID RF: 0 duloxetine 60 mg Capsule,Delayed Release(Dr/Ec) 60 mg PO DAILY RF: 0 cholecalciferol (vitamin D3) [Vitamin D3] 125 mcg (5,000 unit) Tablet 125 mcg PO DAILY RF: 0 Discharge Orders: Discharge Order (Routine); Ordered 02/19/20 Ordered By: Vaughn Tatum Referrals: Jacob Valladares DO [Primary Care Provider] - Discharge Diet: Usual diet Discharge Activity: Increase activity as tolerated Discharge Date/Time: 02/19/20 18:00 Coding Level of Care Code ED Senior Science Consultant for Chg Fwd Exam Comprehensive
--- NOTE | 2020-02-19 14:17 | CT_ITS ---
WS: [id number] CT head wo con* [id number] REASON FOR EXAM: AMS IV CONTRAST ADMINISTERED: TOTAL EXAM DLP: 972.[address] scans at [facility] use at least one of these dose optimization techniques: automat ed exposure control; mA and/or kV adjustment per patient size (includes targeted exams where dose is matched to clinical indication); or iterative reconstruction. FINDINGS: Heavy arteriosclerotic changes of the vertebral basilar arteries were seen. There is moderate frontal atrophy changes seen. The ventricles are slightly prominent. Scattered white matter hyperintensities in the paraventricular area are noted. The yohan and cerebellum otherwise normal. Calvarium normal no deformity seen. The temporal air cells are normal. The left nasal passages somewhat congested but no definite sinusitis. No evidence of hemorrhage, mass effect or infarction. CT/CT head wo con* [id number] IMPRESSION: Frontal atrophy. Mild small vessel ischemic changes.
[2020-02-19 14:26] LABS: Basophils # 0.1 10^3/uL (0.0-0.1); Basophils % 0.4 %; Eosinophils # 0.1 10^3/uL (0.0-0.8); Eosinophils % 0.5 %; Hematocrit 35.5 % (42.0-52.0); Hemoglobin 11.2 g/dL (11.7-16.6); Lymphocytes # 1.1 10^3/uL (0.8-4.8); Lymphocytes % 8.3 %; Mean Corpuscular HGB Conc 31.5 g/dL (30.0-36.0); Mean Corpuscular Hemoglobin 30.4 pg (28.0-34.0); Mean Corpuscular Volume 96.2 fL (80-94); Mean Platelet Volume 10.3 fL (7.4-10.4); Monocytes # 0.7 10^3/uL (0.2-0.9); Neutrophils # 11.2 10^3/uL (1.8-7.7); Neutrophils % 85.4 %; Nucleated Red Blood Cells % 0 %; Platelet Count 185 10^3/cmm (130-400); Red Blood Count 3.69 10^6/uL (4.1-5.3); Red Cell Distribution Width 13.8 % (12.1-15.1); White Blood Count 13.1 10^3/uL (4.0-10.0)
[2020-02-19 14:29] LABS: Ketone (Acetest) Serum Negative (Negative)
[2020-02-19 14:32] VITALS: BP 120/81; PULSE 70; RESP 20; O2SAT 97
[2020-02-19 14:35] LABS: ABG PCO2 41.1 mmHg (35-45); ABG PH Result 7.44 (7.35-7.45); Alveolar-Arterial Oxygen Gradi 65.8 mmHg (5-10); Base Excess ABG 3.4 mmol/L (-2.0-2.0); Blood Gas Allen Test Pos; Blood Gas Sample Site Brachial, right; Blood Gas Sample Type Arterial; Carboxyhemoglobin 0.5 %THgb (0.4-20.1); HCO3 ABG 27.8 mmol/L (22-26); HGB O2 Sat 94.6 % (95-100); Ionized Calcium Level - ABG 1.1 mmol/L (1.1-1.4); Methemoglobin 1.1 % (0.4-1.5); Oxygen Device NC; Oxygen Saturation ABG 96.1; PO2 ABG 81.8 mmHg (80.0-100.0); Potassium Level - ABG 3.9 mmol/L (3.5-5.0); Total Hemoglobin 11.4 g/dL (14-18)
[2020-02-19 14:40] LABS: Alanine Aminotransferase 12 U/L (0-41); Albumin Level 3.1 g/dL (3.5-5.2); Alkaline Phosphatase 61 IU/L (40-130); Anion Gap 14.2 (5-19); Aspartate Amino Transferase 16 U/L (0-40); Blood Urea Nitrogen 20 mg/dL (8-23); Calcium 8.8 mg/dL (8.5-10.5); Carbon Dioxide 27 mmol/L (22-29); Chloride 103 mmol/L (98-107); Globulin 3.1 g/dL (1.3-4.6); Glucose 98 mg/dL (65-115); Lipase 9 U/L (13-60); Osmolality Calculated 287 mOsm/kg (285-295); Potassium 4.2 mmol/L (3.5-5.1); Sodium 140 mmol/L (136-145); Total Bilirubin 0.7 mg/dL (0.15-1.2); Total Protein 6.2 g/dL (6.6-8.7)
[2020-02-19 15:08] LABS: Lactate (Lactic Acid level) 1.2 mmol/L (0.5-2.2)
[2020-02-19 15:36] VITALS: BP 131/64
[2020-02-19 16:07] LABS: Add Urine Microscopic? YES; Bilirubin Urine Neg (NEGATIVE); Blood Urine Neg (Negative); Glucose Urine UA Norm (Normal); Ketones Urine Negative (Negative); Leukocyte Esterase Urine Negative (Negative); Nitrate Urine Negative (Negative); Protein Urine Neg (Negative); Urine Appearance Hazy (CLEAR); Urine Color Yellow (Yellow); Urobilinogen Urine Norm (Negative); pH Urine 5 (5-7)
[2020-02-19 16:09] LABS: Add Urine Culture? No; Bacteria Urine 1+
[2020-02-19 16:59] VITALS: BP 149/86; PULSE 69; RESP 18; O2SAT 99
[2020-02-19 18:00] VITALS: BP 149/86; PULSE 74; RESP 16; O2SAT 97
== END 2020-02-19 18:00 | disposition home or self-care (01) ==
PROVIDERS: Emergency Provider Family Medicine; PCP Electrodiagnostic Medicine
DX: G47.33 Obstructive sleep apnea (adult) (pediatric) (principal); E03.9 Hypothyroidism, unspecified; E66.01 Morbid (severe) obesity due to excess calories; Z95.0 Presence of cardiac pacemaker; Z85.850 Personal history of malignant neoplasm of thyroid; Z79.82 Long term (current) use of aspirin; I11.0 Hypertensive heart disease with heart failure; I50.33 Acute on chronic diastolic (congestive) heart failure; Z85.46 Personal history of malignant neoplasm of prostate
CPT/HCPCS: 12345; 36415; 36600; 51798; 70450; 80051; 80053; 81001; 82009; 82810; 83605; 83690; 83986; 85025; 87040; 99283

== ENCOUNTER 2020-03-06 13:48 | Outpatient (CLI) | payer MEDICARE, BC, SELFPAY ==
[2020-03-06 14:28] LABS: Eosinophils # 0.3 10^3/uL (0.0-0.8); Eosinophils % 8.7 %; Hematocrit 34.3 % (42.0-52.0); Hemoglobin 10.7 g/dL (11.7-16.6); Lymphocytes # 1.1 10^3/uL (0.8-4.8); Lymphocytes % 28.6 %; Mean Corpuscular HGB Conc 31.2 g/dL (30.0-36.0); Mean Corpuscular Hemoglobin 30.6 pg (28.0-34.0); Mean Platelet Volume 9.8 fL (7.4-10.4); Monocytes # 0.4 10^3/uL (0.2-0.9); Monocytes % 9.7 %; Neutrophils % 51.7 %; Nucleated Red Blood Cells % 0 %; Platelet Count 208 10^3/cmm (130-400); Red Cell Distribution Width 14.2 % (12.1-15.1); White Blood Count 3.9 10^3/uL (4.0-10.0)
[2020-03-06 14:54] LABS: Alanine Aminotransferase 13 U/L (0-41); Albumin Level 3.1 g/dL (3.5-5.2); Alkaline Phosphatase 62 IU/L (40-130); Anion Gap 13.2 (5-19); Aspartate Amino Transferase 17 U/L (0-40); Blood Urea Nitrogen 16 mg/dL (8-23); Calcium 8.2 mg/dL (8.5-10.5); Carbon Dioxide 25 mmol/L (22-29); Chloride 102 mmol/L (98-107); Globulin 3.2 g/dL (1.3-4.6); Glucose 82 mg/dL (65-115); Osmolality Calculated 277 mOsm/kg (285-295); Potassium 4.2 mmol/L (3.5-5.1); Sodium 136 mmol/L (136-145); Total Bilirubin 0.4 mg/dL (0.15-1.2); Total Protein 6.3 g/dL (6.6-8.7)
== END 2020-03-06 13:49 | disposition home or self-care (01) ==
LOC: ONCMED 13:54
PROVIDERS: PCP Electrodiagnostic Medicine; Visit Provider Internal Medicine Hematology & Oncology
DX: C73 Malignant neoplasm of thyroid gland (principal)
CPT/HCPCS: 80053; 85025

== ENCOUNTER → 2020-03-20 13:18 | Outpatient (BNVA) | payer MEDICARE, BC, SELFPAY | PROVIDERS: PCP Electrodiagnostic Medicine; Visit Provider Specialist | DX: M25.571 Pain in right ankle and joints of right foot (principal); Z98.890 Other specified postprocedural states | CPT/HCPCS: 73610 ==

== ENCOUNTER 2020-04-12 20:07 | Emergency (ER) | payer MEDICARE, BC, SELFPAY ==
[2020-04-12] VITALS (7 sets, daily range): BP systolic 112–130; BP diastolic 54–84; PULSE 68–87; RESP 14–18; TEMP 37.8; O2SAT 93–99; BMI 40.4
[2020-04-12 21:02] LABS: Basophils % 0.5 %; Eosinophils # 0.3 10^3/uL (0.0-0.8); Eosinophils % 3.7 %; Hematocrit 33.5 % (42.0-52.0); Hemoglobin 10.4 g/dL (11.7-16.6); Lymphocytes # 0.9 10^3/uL (0.8-4.8); Lymphocytes % 10.6 %; Mean Corpuscular Hemoglobin 30.1 pg (28.0-34.0); Mean Corpuscular Volume 97.1 fL (80-94); Mean Platelet Volume 10.3 fL (7.4-10.4); Monocytes # 0.6 10^3/uL (0.2-0.9); Monocytes % 6.7 %; Neutrophils # 6.58 10^3/uL (1.8-7.7); Neutrophils % 78.3 %; Nucleated Red Blood Cells % 0 %; Platelet Count 232 10^3/cmm (130-400); Red Blood Count 3.45 10^6/uL (4.1-5.3); Red Cell Distribution Width 16.1 % (12.1-15.1); White Blood Count 8.4 10^3/uL (4.0-10.0)
--- NOTE | 2020-04-12 21:05 | XRR_ITS ---
PROCEDURE INFORMATION: Exam: XR Chest, 1 View Exam date and time: 04/12/2020 10:14 PM Age: 74 years old Clinical indication: Dyspnea; Additional info: Chest pain TECHNIQUE: Imaging protocol: XR of the chest Views: 1 view. COMPARISON: CR XR chest 2V* [id number] 02/07/2020 1:08 PM FINDINGS: Limitations: Patient is rotated towards the right. Tubes, catheters and devices: A pacemaker device is present, and its leads are in appropriate position. Lungs: Visualized portions of the lungs are clear. Pleural space: Unremarkable. No pleural effusion. No pneumothorax. Heart/Mediastinum: Heart is upper limits of normal in size. Bones/joints: Unremarkable. XR/XR chest 1V portable [id number] IMPRESSION: No acute infiltrate.
--- NOTE | 2020-04-12 21:05 | ECG_ITS ---
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 Measurements Intervals [place] Rate: 76 P: VA: -1 QRS: 78 QRSD: 100 T: -78 QT: 373 QTc: 420 Interpretive Statements Atrial fibrillation with demand ventricular pacing ST DEVIATION AND MODERATE T-WAVE ABNORMALITY, CONSIDER ANTEROLATERAL ISCHEMIA ST DEVIATION AND MODERATE T-WAVE ABNORMALITY, CONSIDER INFERIOR ISCHEMIA Compared to ECG 11/15/2019 14:32:20 T-wave abnormality now present Possible ischemia now present Electronically Signed On 04-16-2020 12:32:00 CDT by Rosio Lynch M.D. [id number]
[2020-04-12 21:18] LABS: Alanine Aminotransferase 16 U/L (0-41); Albumin Level 3.3 g/dL (3.5-5.2); Alkaline Phosphatase 63 IU/L (40-130); Anion Gap 11.3 (5-19); Aspartate Amino Transferase 18 U/L (0-40); Blood Urea Nitrogen 21 mg/dL (8-23); Calcium 8.2 mg/dL (8.5-10.5); Carbon Dioxide 24 mmol/L (22-29); Chloride 110 mmol/L (98-107); Globulin 2.8 g/dL (1.3-4.6); Glucose 128 mg/dL (65-115); Osmolality Calculated 290 mOsm/kg (285-295); Potassium 4.3 mmol/L (3.5-5.1); Sodium 141 mmol/L (136-145); Total Bilirubin 0.5 mg/dL (0.15-1.2); Total Protein 6.1 g/dL (6.6-8.7)
--- NOTE | 2020-04-12 21:40 | ED_ITS ---
HPI - General Adult General: Chief complaint: General Medical Stated complaint: fever Time Seen by Provider: 04/12/20 20:54 History of Present Illness: HPI narrative: This patient is a 74-year-old male presenting today with fever. His is with him and helps provide history as the patient is confused. He has had a fever around 100 today which he says is unusual for him. He is also had a severe cough for at least a few weeks as well as shortness of breath. He is chronically on 4 L of oxygen per nasal cannula. Apparently had a telehealth visit today for cough and shortness of breath and as a result of that was sent for COVID testing. At that time it was documented in that visit that he had not had any fevers. His says that he does get a fever when he has a urinary tract infection and his urine has been quite foul- smelling. She also said he gets very confused like this when he has a fever or urinary tract infection. He has had multiple urinary tract infections. He has no known exposure to COVID but did go out to [facility] in the past week. Onset (ago): day(s) (1 - 2) Associated symptoms: Reports confusion, cough, dyspnea, fevers/chills and ma laise; Deny chest pain, nausea, rash or vomiting Treatments prior to arrival: none Review of Systems General: Reports: 10 or more systems reviewed and unremarkable except in HPI and below Const: Reports: malaise Eyes: Denies: change in vision ENMT: Denies: odynophagia Card: Denies: chest pain or swelling of feet/ankles Resp: Reports: dyspnea and productive cough; Denies: non-productive cough GI: Denies: abdominal pain, nausea or vomiting : Denies: flank pain Musc: Denies: neck pain or back pain Skin/Breast: Denies: rash Neuro: Reports: confusion Sean/Lymph: Denies: easy bruising or easy bleeding PFSH ED PFSH: Medical History Acute on chronic diastolic (congestive) heart failure Arrhythmia Chronic anemia CKD (chronic kidney disease) 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 coli infection History of thyroid cancer Hypertension Hypothyroidism Lower urinary tract symptoms Morbid obesity Obstructive sleep apnea Pacemaker Prostate cancer Recurrent UTI Urinary incontinence Urolithiasis Surgical History History of gastric bypass History of parathyroidectomy History of permanent cardiac pacemaker placement History of spinal surgery MULTIPLE LOWER SPINE SURGERY History of thyroidectomy Hx of tonsillectomy Status post open reduction with internal fixation (ORIF) of fracture of ankle Family History Sister Cancer Father , at age 73 CAD (coronary artery disease) Mother , at age 76 Alzheimer's dementia Social History Smoking and tobacco status: never smoked Alcohol intake: former Adopted: No Caregiver/support person: No Lives independently: No Household members: spouse Marital status: Current occupational status: retired History of recent travel: No Physical Exam Const: COMMON NORMALS: no acute distress, no limitations and alert EXAM LIMITATIONS: altered mental status (Confused) GENERAL APPEARANCE: cooperative and comfortable NUTRITIONAL APPEARANCE: obese morbidly obese ORIENTATION/CONSCIOUSNESS: Yes awake and Yes oriented to person; not oriented to time HENMT: HEAD & SCALP: normal to inspection FACE & SINUS: normal facial exam Eye: GENERAL EYE: appearance normal, both eyes and all related structures Neck/C-Spine: COMMON NORMALS: supple, no meningeal signs and no JVD Chest: COMMONS NORMALS: normal inspection of the chest Resp: COMMON NORMALS: normal respiratory effort, No use of accessory muscles and clear to auscultation bilaterally AUSCULTATION: clear to auscultation bilaterally Cardio: COMMON NORMALS: no JVD, regular rate, regular rhythm and No murmurs present (Cardio) RATE: regular rate RHYTHM: regular rhythm GI: COMMON NORMALS: Normal to inspection, nondistended, normoactive bowel sounds present, Soft to palpation and non-tender INSPECTION: Yes normal to inspection AUSCULTATION: Yes normoactive bowel sounds PALPATION: Yes Soft to palpation Back/Pelvis: COMMON NORMALS: thoracic and lumbar spine normal to inspection Extremity: COMMON NORMALS: normal to inspection Neuro: COMMON NORMALS: moves all extremities, no focal motor deficits and no sensory deficits noted SENSORIUM/ORIENTATION: Yes alert, Yes oriented to person and No oriented to time MENINGEAL SIGNS: Yes no meningeal signs Psych: COMMON NORMALS: mental status grossly normal, cooperative and normal affect Skin: COMMON NORMALS: no rashes or lesions noted and turgor normal GENERAL SKIN EXAM: no rashes or lesions noted and turgor normal Course ED course: Complaint here in the ER is fever and foul-smelling urine. However he also has symptoms of cough and shortness of breath and was tested for COVID today. I have put him on COVID precautions and although hospital policy is that his should not be able to be back here with him due to the COVID precautions he became quite agitated and said he would leave if she can stay with him. I do not see any harm in her staying in the room with him as she has been living with him at home and is not likely to contribute to any spread. Reevaluation(s): Reevaluation #1: Patient was somewhat irritable and impatient in the ED. There is no obvious cause for his fever. His white count is 8.4. Urinalysis was negative. Chest x-ray did not show an obvious infiltrate. He had a COVID test done as an outpatient earlier today and flu test here was negative. Troponin was flat. Procalcitonin and CRP are still pending. BNP is slightly elevated at 1522. Consultations: Consultation #1: Spoke with Dr. Andres about admitting him given his age and the presence of fever. He felt that 100 was not a significant enough fever to justify admission. The patient and his are comfortable with going home. We discussed return precautions, self quarantine, follow-up recommendations. Vital Signs: Vital signs: Vital Signs Temperature 100.0 F H 04/12/20 20:43 Pulse Rate 67 04/13/20 01:15 Respiratory Rate 20 H 04/13/20 01:15 Blood Pressure 112/62 04/13/20 01:15 Pulse Oximetry 97 04/13/20 01:15 MDM - General Adult Lab Data: Labs: Lab Results 04/12/20 04/12/20 04/12/20 Range/Units 20:55 20:55 20:55 WBC 8.4 (4.0-10.0) 10^3/ uL RBC 3.45 L (4.1-5.3) 10^6/u L Hgb 10.4 L (11.7-16.6) g/dL Hct 33.5 L (42.0-52.0) % MCV 97.1 H (80-94) fL MCH 30.1 (28.0-34.0) pg MCHC 31.0 (30.0-36.0) g/dL RDW 16.1 H (12.1-15.1) % Plt Count 232 (130-400) 10^3/c mm MPV 10.3 (7.4-10.4) fL Neut % (Auto) 78.3 % Lymph % (Auto) 10.6 % Nicholas % (Auto) 6.7 % Eos % (Auto) 3.7 % Baso % (Auto) 0.5 % Neut # (Auto) 6.58 (1.8-7.7) 10^3/u L Lymph # (Auto) 0.9 (0.8-4.8) 10^3/u L Nicholas # (Auto) 0.6 (0.2-0.9) 10^3/u L Eos # (Auto) 0.3 (0.0-0.8) 10^3/u L Baso # (Auto) 0.0 (0.0-0.1) 10^3/u L Nucleated RBC % (a uto) 0 % Nucleated RBCs # 0.0 /100WBC ESR (0-10) mm/hr Sodium 141 (136-145) mmol/L Potassium 4.3 (3.5-5.1) mmol/L Chloride 110 H (98-107) mmol/L Carbon Dioxide 24 (22-29) mmol/L Anion Gap 11.3 (5-19) BUN 21 (8-23) mg/dL Creatinine 1.1 (0.7-1.2) mg/dL GFR Calculation Not Reportable Glucose 128 H (65-115) mg/dL Calculated Osmolal ity 290 (285-295) mOsm/k g Calcium 8.2 L (8.5-10.5) mg/dL Total Bilirubin 0.5 (0.15-1.2) mg/dL AST 18 (0-40) U/L ALT 16 (0-41) U/L Alkaline Phosphata se 63 (40-130) IU/L Troponin T Baselin e 49 H (0-15) ng/L Troponin T 120 Min lower [place] (0-15) ng/L Delta Troponin T (0-10) ABS# C-Reactive Protein (0.0-4.9) mg/L NT-Pro-B Natriuret Pep (0-125) pg/mL Total Protein 6.1 L (6.6-8.7) g/dL Albumin 3.3 L (3.5-5.2) g/dL Globulin 2.8 (1.3-4.6) g/dL Procalcitonin (0-0.5) ng/mL Urine Color (Yellow) Urine Appearance (CLEAR) Urine pH (5-7) Ur Specific Gravit y (1.005-1.030) Urine Protein (Negative) Urine Glucose (UA) (Normal) Urine Ketones (Negative) Urine Blood (Negative) Urine Nitrate (Negative) Urine Bilirubin (NEGATIVE) Urine Urobilinogen (Negative) mg/dL Ur Leukocyte Kierra ase (Negative) Digoxin (0.6-1.2) ng/mL Influenza Type A A g (Negative) Influenza Type B A g (Negative) 04/12/20 04/12/20 04/12/20 Range/Units 21:42 22:55 22:55 WBC (4.0-10.0) 10^3/ uL RBC (4.1-5.3) 10^6/u L Hgb (11.7-16.6) g/dL Hct (42.0-52.0) % MCV (80-94) fL MCH (28.0-34.0) pg MCHC (30.0-36.0) g/dL RDW (12.1-15.1) % Plt Count (130-400) 10^3/c mm MPV (7.4-10.4) fL Neut % (Auto) % Lymph % (Auto) % Nicholas % (Auto) % Eos % (Auto) % Baso % (Auto) % Neut # (Auto) (1.8-7.7) 10^3/u L Lymph # (Auto) (0.8-4.8) 10^3/u L Nicholas # (Auto) (0.2-0.9) 10^3/u L Eos # (Auto) (0.0-0.8) 10^3/u L Baso # (Auto) (0.0-0.1) 10^3/u L Nucleated RBC % (a uto) % Nucleated RBCs # /100WBC ESR (0-10) mm/hr Sodium (136-145) mmol/L Potassium (3.5-5.1) mmol/L Chloride (98-107) mmol/L Carbon Dioxide (22-29) mmol/L Anion Gap (5-19) BUN (8-23) mg/dL Creatinine (0.7-1.2) mg/dL GFR Calculation Glucose (65-115) mg/dL Calculated Osmolal ity (285-295) mOsm/k g Calcium (8.5-10.5) mg/dL Total Bilirubin (0.15-1.2) mg/dL AST (0-40) U/L ALT (0-41) U/L Alkaline Phosphata se (40-130) IU/L Troponin T Baselin e (0-15) ng/L Troponin T 120 Min lower [place] 49.14 H (0-15) ng/L Delta Troponin T 0.14 (0-10) ABS# C-Reactive Protein 7.4 H (0.0-4.9) mg/L NT-Pro-B Natriuret Pep 1522 H (0-125) pg/mL Total Protein (6.6-8.7) g/dL Albumin (3.5-5.2) g/dL Globulin (1.3-4.6) g/dL Procalcitonin 0.03 (0-0.5) ng/mL Urine Color Yellow (Yellow) Urine Appearance Clear (CLEAR) Urine pH 5 (5-7) Ur Specific Gravit y 1.020 (1.005-1.030) Urine Protein Neg (Negative) Urine Glucose (UA) Norm (Normal) Urine Ketones Negative (Negative) Urine Blood Neg (Negative) Urine Nitrate Negative (Negative) Urine Bilirubin Neg (NEGATIVE) Urine Urobilinogen Norm (Negative) mg/dL Ur Leukocyte Kierra ase Negative (Negative) Digoxin 0.5 L (0.6-1.2) ng/mL Influenza Type A A g (Negative) Influenza Type B A g (Negative) 04/12/20 04/12/20 Range/Units 22:55 23:14 WBC (4.0-10.0) 10^3/ uL RBC (4.1-5.3) 10^6/u L Hgb (11.7-16.6) g/dL Hct (42.0-52.0) % MCV (80-94) fL MCH (28.0-34.0) pg MCHC (30.0-36.0) g/dL RDW (12.1-15.1) % Plt Count (130-400) 10^3/c mm MPV (7.4-10.4) fL Neut % (Auto) % Lymph % (Auto) % Nicholas % (Auto) % Eos % (Auto) % Baso % (Auto) % Neut # (Auto) (1.8-7.7) 10^3/u L Lymph # (Auto) (0.8-4.8) 10^3/u L Nicholas # (Auto) (0.2-0.9) 10^3/u L Eos # (Auto) (0.0-0.8) 10^3/u L Baso # (Auto) (0.0-0.1) 10^3/u L Nucleated RBC % (a uto) % Nucleated RBCs # /100WBC ESR 27 H (0-10) mm/hr Sodium (136-145) mmol/L Potassium (3.5-5.1) mmol/L Chloride (98-107) mmol/L Carbon Dioxide (22-29) mmol/L Anion Gap (5-19) BUN (8-23) mg/dL Creatinine (0.7-1.2) mg/dL GFR Calculation Glucose (65-115) mg/dL Calculated Osmolal ity (285-295) mOsm/k g Calcium (8.5-10.5) mg/dL Total Bilirubin (0.15-1.2) mg/dL AST (0-40) U/L ALT (0-41) U/L Alkaline Phosphata se (40-130) IU/L Troponin T Baselin e (0-15) ng/L Troponin T 120 Min lower [place] (0-15) ng/L Delta Troponin T (0-10) ABS# C-Reactive Protein (0.0-4.9) mg/L NT-Pro-B Natriuret Pep (0-125) pg/mL Total Protein (6.6-8.7) g/dL Albumin (3.5-5.2) g/dL Globulin (1.3-4.6) g/dL Procalcitonin (0-0.5) ng/mL Urine Color (Yellow) Urine Appearance (CLEAR) Urine pH (5-7) Ur Specific Gravit y (1.005-1.030) Urine Protein (Negative) Urine Glucose (UA) (Normal) Urine Ketones (Negative) Urine Blood (Negative) Urine Nitrate (Negative) Urine Bilirubin (NEGATIVE) Urine Urobilinogen (Negative) mg/dL Ur Leukocyte Kierra ase (Negative) Digoxin (0.6-1.2) ng/mL Influenza Type A A g Negative (Negative) Influenza Type B A g Negative (Negative) Discharge Plan Discharge Patient Disposition: Home Clinical Impression: COVID-19 virus test result unknown Fever Qualifiers: Fever type: unspecified Qualified Code(s): R50.9 - Fever, unspecified Condition: Stable Prescriptions: No Action docusate sodium 100 mg capsule 100 mg PO BID PRN (Reason: UNKNOWN) RF: 0 ferrous sulfate 325 mg (65 mg iron) tablet 325 mg PO BID RF: 0 furosemide 20 mg tablet 20 mg PO QAM RF: 0 metoprolol succinate 50 mg tablet extended release 24 hr 150 mg PO BEDTIME RF: 0 bisacodyl 5 mg tablet 5 mg PO DAILY PRN (Reason: UNKNOWN) RF: 0 methenamine hippurate 1 gram tablet 1 gm PO BID Qty: 60 RF: 12 ascorbic acid (vitamin C) 1,000 mg tablet 1,000 mg PO BID RF: 0 digoxin 125 mcg (0.125 mg) tablet 125 mcg PO DAILY RF: 0 alprazolam 1 mg Tablet 1 mg PO TID PRN (Reason: stress) RF: 0 levothyroxine [Synthroid] 125 mcg Tablet 125 mcg PO DAILY RF: 0 tamsulosin 0.4 mg Capsule 0.4 mg PO BEDTIME RF: 0 amlodipine 5 mg Tablet 5 mg PO DAILY RF: 0 Hold Instructions: Resume on 12/19/19. add based on outpatient blood pressures and until seen by physician lisinopril 2.5 mg Tablet 2.5 mg PO DAILY RF: 0 aspirin 81 mg Tablet,Delayed Release (Dr/Ec) 81 mg PO DAILY RF: 0 oxycodone-acetaminophen 10-325 mg Tablet 1 tab PO Q4H PRN (Reason: Pain) RF: 0 gabapentin 800 mg Tablet 800 mg PO QID RF: 0 duloxetine 60 mg Capsule,Delayed Release(Dr/Ec) 60 mg PO DAILY RF: 0 cholecalciferol (vitamin D3) [Vitamin D3] 125 mcg (5,000 unit) Tablet 125 mcg PO DAILY RF: 0 Discharge Orders: Discharge Order (Routine); Ordered 04/13/20 Ordered By: Mary Thomas Referrals: Jacob Valladares, [Primary Care Provider] - Discharge Diet: Usual diet Discharge Activity: Resume usual activity Patient Instructions: Fever in Adults (ED) Activity Restrictions/Additional Instructions: Return to the emergency department immediately if worse in any way. Remain in self isolation until you have your code results. Use Tylenol for fever as needed. Discharge Date/Time: 04/13/20 01:16 Coding Level of Care Code ED [employer]ician for Lavern Fwmichelle Exam Comprehensive
[2020-04-12 21:46] LABS: Add Urine Microscopic? NO
[2020-04-12 21:48] LABS: Troponin(5th) Baseline 49 ng/L (0-15)
[2020-04-12] MEDS: acetaminophen 500 mg Tablet 1000 MG PO (21:48)
[2020-04-12] MEDS: sodium chloride 0.9% 500 ML 999 ML IV (21:49)
[2020-04-12 21:55] LABS: Bilirubin Urine Neg (NEGATIVE); Blood Urine Neg (Negative); Glucose Urine UA Norm (Normal); Ketones Urine Negative (Negative); Leukocyte Esterase Urine Negative (Negative); Nitrate Urine Negative (Negative); Protein Urine Neg (Negative); Urine Appearance Clear (CLEAR); Urine Color Yellow (Yellow); Urobilinogen Urine Norm (Negative); pH Urine 5 (5-7)
--- NOTE | 2020-04-12 23:05 | ECG_ITS ---
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 Measurements Intervals [place] Rate: 69 P: AR: -1 QRS: -79 QRSD: 190 T: 97 QT: 487 QTc: 525 Interpretive Statements ELECTRONIC VENTRICULAR PACEMAKER ABNORMAL RHYTHM ECG Compared to ECG 04/12/2020 21:24:26 T-wave abnormality no longer present Possible ischemia no longer present Electronically Signed On 04-14-2020 13:00:52 CDT by Rosio Lynch M.D. [email or web address]
[2020-04-12 23:26] LABS: Troponin 5 2HR 49.14 ng/L (0-15); Troponin 5 2HR Delta 0.14 ABS# (0-10)
[2020-04-12 23:42] LABS: Digoxin 0.5 ng/mL (0.6-1.2); NT Pro B Type Natriuretic Pept 1522 pg/mL (0-125)
[2020-04-12 23:45] LABS: Influenza A by IFA Negative (Negative); Influenza B by IFA Negative (Negative)
[2020-04-12 23:45] LABS: Erythrocyte Sedimentation Rate 27 mm/hr (0-10)
[2020-04-12] MEDS: morphine 4 mg/mL SDV 1 mL IVP (23:51)
[2020-04-12] MEDS: ondansetron 2 mg/ML SDV 2 mL 4 MG IVP (23:52)
[2020-04-13 01:15] VITALS: BP 112/62; PULSE 67; RESP 20; O2SAT 97
[2020-04-13 01:38] LABS: Procalcitonin 0.03 ng/mL (0-0.5)
[2020-04-13 02:31] LABS: C Reactive Protein 7.4 mg/L (0.0-4.9)
== END 2020-04-13 01:16 | disposition home or self-care (01) ==
PROVIDERS: Nurse Practitioner Family; Emergency Provider Emergency Medicine; PCP Electrodiagnostic Medicine
DX: R50.9 Fever, unspecified (principal); Z79.82 Long term (current) use of aspirin; Z99.81 Dependence on supplemental oxygen; I11.0 Hypertensive heart disease with heart failure; I50.33 Acute on chronic diastolic (congestive) heart failure; Z85.850 Personal history of malignant neoplasm of thyroid; Z95.0 Presence of cardiac pacemaker; Z85.46 Personal history of malignant neoplasm of prostate
CPT/HCPCS: 12345; 36415; 71045; 80053; 80162; 81003; 83880; 84145; 84484; 85025; 85651; 86140; 87635; 87804; 93005; 96374; 96375; 99283; 99284; J2270; J2405; J7040

== ENCOUNTER 2020-04-13 16:35 | Inpatient (IN) | payer MEDICARE, BC, SELFPAY ==
[2020-04-13 16:37] VITALS: BMI 40.1
--- NOTE | 2020-04-13 16:42 | XRR_ITS ---
PROCEDURE INFORMATION: Exam: XR Chest, 1 View Exam date and time: 04/13/2020 5:17 PM Age: 74 years old Clinical indication: Cough and fever; Prior surgery; Surgery date: 6+ months; Surgery type: Pacemaker; Patient HX: History of throat and prostate cancer; Additional info: Cough, AMS TECHNIQUE: Imaging protocol: XR of the chest Views: 1 view. COMPARISON: CR XR chest 1V portable [id number] 04/12/2020 10:01 PM FINDINGS: Tubes, catheters and devices: Stable left pacemaker. Lungs: Left peripheral pleural based mid lung field opacities suggesting possible pneumonia. Pleural space: Unremarkable. No pleural effusion. No pneumothorax. Heart/Mediastinum: Moderate globular cardiomegaly consistent with 4-chamber enlargment and/or pericardial effusion. Bones/joints: Unremarkable. Other findings: Stable extensive postoperative changes over the neck bilaterally. XR/XR chest 1V portable [id number] IMPRESSION: 1. Moderate globular cardiomegaly consistent with 4-chamber enlargment and/or pericardial effusion. 2. Left peripheral pleural based mid lung field opacities suggesting possible pneumonia.
[2020-04-13 16:44] VITALS: BP 159/96; PULSE 69; RESP 20; TEMP 36.4; O2SAT 94
[2020-04-13 17:12] VITALS: BP 134/71; PULSE 70; RESP 13; O2SAT 99
[2020-04-13 17:13] LABS: Basophils % 0.6 %; Eosinophils # 0.3 10^3/uL (0.0-0.8); Eosinophils % 6.5 %; Hematocrit 32.9 % (42.0-52.0); Hemoglobin 10.3 g/dL (11.7-16.6); Lymphocytes # 0.9 10^3/uL (0.8-4.8); Lymphocytes % 17.8 %; Mean Corpuscular HGB Conc 31.3 g/dL (30.0-36.0); Mean Corpuscular Hemoglobin 31.3 pg (28.0-34.0); Mean Platelet Volume 9.9 fL (7.4-10.4); Monocytes # 0.4 10^3/uL (0.2-0.9); Monocytes % 7.1 %; Neutrophils # 3.53 10^3/uL (1.8-7.7); Neutrophils % 67.6 %; Nucleated Red Blood Cells % 0 %; Platelet Count 199 10^3/cmm (130-400); Red Blood Count 3.29 10^6/uL (4.1-5.3); Red Cell Distribution Width 16.2 % (12.1-15.1); White Blood Count 5.2 10^3/uL (4.0-10.0)
[2020-04-13 17:29] LABS: ABG PCO2 51.5 mmHg (35-45); ABG PH Result 7.31 (7.35-7.45); Arterial Blood Gas Hematocrit 31.3 % (42-52); Base Excess ABG -0.7 mmol/L (-2.0-2.0); Blood Gas Operator Identificat amh; Blood Gas Sample Site Brachial, right; Blood Gas Sample Type Arterial; Oxygen Device NC; PO2 ABG 92.6 mmHg (80.0-100.0)
[2020-04-13 17:41] LABS: Lactate (Lactic Acid level) 0.9 mmol/L (0.5-2.2)
[2020-04-13 17:51] LABS: NT Pro B Type Natriuretic Pept 1485 pg/mL (0-125); Procalcitonin 0.06 ng/mL (0-0.5)
[2020-04-13 17:54] LABS: Erythrocyte Sedimentation Rate 26 mm/hr (0-10)
[2020-04-13 17:59] LABS: Add Urine Microscopic? NO
[2020-04-13 18:02] LABS: Alanine Aminotransferase 20 U/L (0-41); Alkaline Phosphatase 65 IU/L (40-130); Anion Gap 12.3 (5-19); Aspartate Amino Transferase 25 U/L (0-40); Blood Urea Nitrogen 20 mg/dL (8-23); C Reactive Protein 13.3 mg/L (0.0-4.9); Calcium 7.7 mg/dL (8.5-10.5); Carbon Dioxide 23 mmol/L (22-29); Chloride 107 mmol/L (98-107); Globulin 3.1 g/dL (1.3-4.6); Glucose 111 mg/dL (65-115); Osmolality Calculated 283 mOsm/kg (285-295); Potassium 4.3 mmol/L (3.5-5.1); Sodium 138 mmol/L (136-145); Total Bilirubin 0.6 mg/dL (0.15-1.2); Total Protein 6.1 g/dL (6.6-8.7)
[2020-04-13 18:03] LABS: Bilirubin Urine Neg (NEGATIVE); Blood Urine Neg (Negative); Glucose Urine UA Norm (Normal); Ketones Urine Negative (Negative); Leukocyte Esterase Urine Negative (Negative); Nitrate Urine Negative (Negative); Protein Urine Neg (Negative); Urine Appearance Clear (CLEAR); Urine Color Yellow (Yellow); Urobilinogen Urine Norm (Negative); pH Urine 5 (5-7)
[2020-04-13 18:12] VITALS: BP 127/70; PULSE 69; RESP 13; O2SAT 95
[2020-04-13] MEDS: azithromycin 500 MG in sodium chloride 0.9% 250 ML 250 MG IV (18:35)
[2020-04-13] MEDS: cefTRIAXone 1,000 MG in sodium chloride 0.9% (plus) 50 ML 100 MG IV (18:35)
[2020-04-13] MEDS: FUROsemide 10 mg/mL SDV 10mL 60 MG IVP (18:35)
--- NOTE | 2020-04-13 18:37 | W.ED.AMS ---
HPI - Altered Mental Status General: Chief Complaint: Altered Mental Status Stated Complaint: AMS Time Seen by Provider: 04/13/20 16:42 History of Present Illness: HPI narrative: This patient is a 74-year-old male who was here in the ED last night with low-grade fever. He and his both suspected a urinary tract infection as a cause but that was negative. He also would had a COVID test yesterday prior to coming to the ED and the results were not yet available. He had some cough and shortness of breath yesterday and COVID precautions were undertaken both yesterday and today. Because of his low-grade temperature I wanted to admit him but he and his prefer to go home and the hospitalist also did not feel that he needed to be admitted. He was discharged late in the evening last night and his said that since then he is pretty much been laying in bed and not eating or drinking. He is very lethargic and she brought him back in for further evaluation. MD complaint: altered mental status and confusion Onset (ago): day(s) (2) Timing confirmed by: family member Severity: moderate Consistency of symptoms: Getting Worse Review of Systems General: Reports: 10 or more systems reviewed and unremarkable except in HPI and below Const: Reports: fever(s), chills, fatigue and malaise Eyes: Denies: change in vision ENMT: Denies: odynophagia Card: Reports: swelling of feet/ankles; Denies: chest pain Resp: Reports: dyspnea and productive cough; Denies: non-productive cough GI: Denies: abdominal pain, nausea or vomiting : Denies: flank pain Musc: Denies: neck pain or back pain Skin/Breast: Denies: rash Neuro: Denies: headache(s), numbness in extremities or weakness in extremities Sean/Lymph: Denies: easy bruising or easy bleeding [facility] ED PFS: Medical History (Updated 04/13/20 @ 00:35 by Mary Thomas MD) Acute on chronic diastolic (congestive) heart failure Arrhythmia Chronic anemia CKD (chronic kidney disease) 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 coli infection History of thyroid cancer Hypertension Hypothyroidism Lower urinary tract symptoms Morbid obesity Obstructive sleep apnea Pacemaker Prostate cancer Recurrent UTI Urinary incontinence Urolithiasis Surgical History History of gastric bypass History of parathyroidectomy History of permanent cardiac pacemaker placement History of spinal surgery MULTIPLE LOWER SPINE SURGERY History of thyroidectomy Hx of tonsillectomy Status post open reduction with internal fixation (ORIF) of fracture of ankle Family History Sister Cancer Father , at age 73 CAD (coronary artery disease) Mother , at age 76 Alzheimer's dementia Social History Smoking and tobacco status: never smoked Alcohol intake: former Adopted: No Caregiver/support person: No Lives independently: No Household members: spouse Marital status: Current occupational status: retired History of recent travel: No Physical Exam Const: COMMON NORMALS: no acute distress and no limitations GENERAL APPEARANCE: cooperative, lethargic and ill appearing ORIENTATION/CONSCIOUSNESS: Yes lethargic HENMT: HEAD & SCALP: normal to inspection FACE & SINUS: normal facial exam Eye: GENERAL EYE: appearance normal, both eyes and all related structures Neck/C-Spine: COMMON NORMALS: supple, no meningeal signs and no JVD Chest: COMMONS NORMALS: normal inspection of the chest Resp: COMMON NORMALS: normal respiratory effort and No use of accessory muscles AUSCULTATION: diminished lung sounds bilateral Cardio: COMMON NORMALS: no JVD, regular rate, regular rhythm and No murmurs present (Cardio) RATE: regular rate RHYTHM: regular rhythm GI: COMMON NORMALS: Normal to inspection, nondistended, normoactive bowel sounds present, Soft to palpation and non-tender INSPECTION: Yes normal to inspection AUSCULTATION: Yes normoactive bowel sounds PALPATION: Yes Soft to palpation Back/Pelvis: COMMON NORMALS: thoracic and lumbar spine normal to inspection Extremity: GENERAL: Yes edema Neuro: COMMON NORMALS: moves all extremities, no focal motor deficits and no sensory deficits noted SENSORIUM/ORIENTATION: Yes lethargic MENINGEAL SIGNS: Yes no meningeal signs Psych: COMMON NORMALS: mental status grossly normal, cooperative and normal affect Skin: COMMON NORMALS: no rashes or lesions noted and turgor normal GENERAL SKIN EXAM: no rashes or lesions noted and turgor normal Urinary Catheter Management^: Melendez: Cath Placed During This Visit: yes Urinary Catheter Date of Insertion: 04/13/20 Urinary Catheter Time of Insertion: 17:43 Course ED course: This patient was here last night with a fever of unknown origin. It was low-grade and today he does not have a fever. He has progressed clinically however and looks much worse. His sats are in the high 90s to mid 90s on his normal 4 L of oxygen. Chest x-ray showed some infiltrates on chest CT shows bilateral infiltrates. His white count was normal and his procalcitonin was low. I am clinically concerned about COVID and his outpatient COVID test is still pending. He was given antibiotics to cover pneumonia and will be admitted. Vital Signs: Vital signs: Vital Signs Temperature 97.6 F 04/13/20 16:44 Pulse Rate 72 04/13/20 21:49 Respiratory Rate 18 04/13/20 21:49 Blood Pressure 132/70 04/13/20 21:49 Pulse Oximetry 97 04/13/20 21:49 MDM - Altered Mental Status Lab Data: Labs: Lab Results 04/13/20 04/13/20 04/13/20 Range/Units 17:00 17:00 17:00 WBC 5.2 (4.0-10.0) 10^3/ uL RBC 3.29 L (4.1-5.3) 10^6/u L Hgb 10.3 L (11.7-16.6) g/dL Hct 32.9 L (42.0-52.0) % MCV 100.0 H (80-94) fL MCH 31.3 (28.0-34.0) pg MCHC 31.3 (30.0-36.0) g/dL RDW 16.2 H (12.1-15.1) % Plt Count 199 (130-400) 10^3/c mm MPV 9.9 (7.4-10.4) fL Neut % (Auto) 67.6 % Lymph % (Auto) 17.8 % [place] % (Auto) 7.1 % Eos % (Auto) 6.5 % Baso % (Auto) 0.6 % Neut # (Auto) 3.53 (1.8-7.7) 10^3/u L Lymph # (Auto) 0.9 (0.8-4.8) 10^3/u L [place] # (Auto) 0.4 (0.2-0.9) 10^3/u L Eos # (Auto) 0.3 (0.0-0.8) 10^3/u L Baso # (Auto) 0.0 (0.0-0.1) 10^3/u L Nucleated RBC % (a uto) 0 % Nucleated RBCs # 0.0 /100WBC ESR 26 H (0-10) mm/hr Specimen Type Sample Site ABG pH (7.35-7.45) ABG pCO2 (35-45) mmHg ABG pO2 (80.0-100.0) mmH g ABG HCO3 (22-26) mmol/L ABG Base Excess (-2.0-2.0) mmol/ L Shalom Test Hematocrit (42-52) % O2 Delivery Device O2 Liters/Min % FiO2 % [employer] ID Sodium 138 (136-145) mmol/L Potassium 4.3 (3.5-5.1) mmol/L Chloride 107 (98-107) mmol/L Carbon Dioxide 23 (22-29) mmol/L Anion Gap 12.3 (5-19) BUN 20 (8-23) mg/dL Creatinine 1.0 (0.7-1.2) mg/dL GFR Calculation Not Reportable Glucose 111 (65-115) mg/dL Calculated Osmolal ity 283 L (285-295) mOsm/k g Lactate (0.5-2.2) mmol/L Calcium 7.7 L (8.5-10.5) mg/dL Total Bilirubin 0.6 (0.15-1.2) mg/dL AST 25 (0-40) U/L ALT 20 (0-41) U/L Alkaline Phosphata se 65 (40-130) IU/L Troponin T Baselin e (0-15) ng/L Troponin T 120 Min prisca (0-15) ng/L Delta Troponin T (0-10) ABS# C-Reactive Protein 13.3 H (0.0-4.9) mg/L NT-Pro-B Natriuret Pep 1485 H (0-125) pg/mL Total Protein 6.1 L (6.6-8.7) g/dL Albumin 3.0 L (3.5-5.2) g/dL Globulin 3.1 (1.3-4.6) g/dL Procalcitonin 0.06 (0-0.5) ng/mL TSH (0.27-4.20) uIU/ mL Urine Color (Yellow) Urine Appearance (CLEAR) Urine pH (5-7) Ur Specific Gravit y (1.005-1.030) Urine Protein (Negative) Urine Glucose (UA) (Normal) Urine Ketones (Negative) Urine Blood (Negative) Urine Nitrate (Negative) Urine Bilirubin (NEGATIVE) Urine Urobilinogen (Negative) mg/dL Ur Leukocyte Kierra ase (Negative) Digoxin (0.6-1.2) ng/mL 04/13/20 04/13/20 04/13/20 Range/Units 17:00 17:00 17:18 WBC (4.0-10.0) 10^3/ uL RBC (4.1-5.3) 10^6/u L Hgb (11.7-16.6) g/dL Hct (42.0-52.0) % MCV (80-94) fL MCH (28.0-34.0) pg MCHC (30.0-36.0) g/dL RDW (12.1-15.1) % Plt Count (130-400) 10^3/c mm MPV (7.4-10.4) fL Neut % (Auto) % Lymph % (Auto) % [place] % (Auto) % Eos % (Auto) % Baso % (Auto) % Neut # (Auto) (1.8-7.7) 10^3/u L Lymph # (Auto) (0.8-4.8) 10^3/u L [place] # (Auto) (0.2-0.9) 10^3/u L Eos # (Auto) (0.0-0.8) 10^3/u L Baso # (Auto) (0.0-0.1) 10^3/u L Nucleated RBC % (a uto) % Nucleated RBCs # /100WBC ESR (0-10) mm/hr Specimen Type Arterial Sample Site Brachial, right ABG pH 7.31 L (7.35-7.45) ABG pCO2 51.5 H (35-45) mmHg ABG pO2 92.6 (80.0-100.0) mmH g ABG HCO3 26.0 (22-26) mmol/L ABG Base Excess -0.7 (-2.0-2.0) mmol/ L Shalom Test N/a Hematocrit 31.3 L (42-52) % O2 Delivery Device Nc O2 Liters/Min 4.0 % FiO2 36.0 % [employer] ID amh Sodium (136-145) mmol/L Potassium (3.5-5.1) mmol/L Chloride (98-107) mmol/L Carbon Dioxide (22-29) mmol/L Anion Gap (5-19) BUN (8-23) mg/dL Creatinine (0.7-1.2) mg/dL GFR Calculation Glucose (65-115) mg/dL Calculated Osmolal ity (285-295) mOsm/k g Lactate 0.9 (0.5-2.2) mmol/L Calcium (8.5-10.5) mg/dL Total Bilirubin (0.15-1.2) mg/dL AST (0-40) U/L ALT (0-41) U/L Alkaline Phosphata se (40-130) IU/L Troponin T Baselin e 48 H (0-15) ng/L Troponin T 120 Min prisca (0-15) ng/L Delta Troponin T (0-10) ABS# C-Reactive Protein (0.0-4.9) mg/L NT-Pro-B Natriuret Pep (0-125) pg/mL Total Protein (6.6-8.7) g/dL Albumin (3.5-5.2) g/dL Globulin (1.3-4.6) g/dL Procalcitonin (0-0.5) ng/mL TSH (0.27-4.20) uIU/ mL Urine Color (Yellow) Urine Appearance (CLEAR) Urine pH (5-7) Ur Specific Gravit y (1.005-1.030) Urine Protein (Negative) Urine Glucose (UA) (Normal) Urine Ketones (Negative) Urine Blood (Negative) Urine Nitrate (Negative) Urine Bilirubin (NEGATIVE) Urine Urobilinogen (Negative) mg/dL Ur Leukocyte Kierra ase (Negative) Digoxin (0.6-1.2) ng/mL 04/13/20 04/13/20 04/13/20 Range/Units 17:30 18:16 19:15 WBC (4.0-10.0) 10^3/ uL RBC (4.1-5.3) 10^6/u L Hgb (11.7-16.6) g/dL Hct (42.0-52.0) % MCV (80-94) fL MCH (28.0-34.0) pg MCHC (30.0-36.0) g/dL RDW (12.1-15.1) % Plt Count (130-400) 10^3/c mm MPV (7.4-10.4) fL Neut % (Auto) % Lymph % (Auto) % [place] % (Auto) % Eos % (Auto) % Baso % (Auto) % Neut # (Auto) (1.8-7.7) 10^3/u L Lymph # (Auto) (0.8-4.8) 10^3/u L [place] # (Auto) (0.2-0.9) 10^3/u L Eos # (Auto) (0.0-0.8) 10^3/u L Baso # (Auto) (0.0-0.1) 10^3/u L Nucleated RBC % (a uto) % Nucleated RBCs # /100WBC ESR (0-10) mm/hr Specimen Type Sample Site ABG pH (7.35-7.45) ABG pCO2 (35-45) mmHg ABG pO2 (80.0-100.0) mmH g ABG HCO3 (22-26) mmol/L ABG Base Excess (-2.0-2.0) mmol/ L Shalom Test Hematocrit (42-52) % O2 Delivery Device O2 Liters/Min % FiO2 % [employer] ID Sodium (136-145) mmol/L Potassium (3.5-5.1) mmol/L Chloride (98-107) mmol/L Carbon Dioxide (22-29) mmol/L Anion Gap (5-19) BUN (8-23) mg/dL Creatinine (0.7-1.2) mg/dL GFR Calculation Glucose (65-115) mg/dL Calculated Osmolal ity (285-295) mOsm/k g Lactate (0.5-2.2) mmol/L Calcium (8.5-10.5) mg/dL Total Bilirubin (0.15-1.2) mg/dL AST (0-40) U/L ALT (0-41) U/L Alkaline Phosphata se (40-130) IU/L Troponin T Baselin e (0-15) ng/L Troponin T 120 Min prisca 40.66 H (0-15) ng/L Delta Troponin T -7.34 L (0-10) ABS# C-Reactive Protein (0.0-4.9) mg/L NT-Pro-B Natriuret Pep (0-125) pg/mL Total Protein (6.6-8.7) g/dL Albumin (3.5-5.2) g/dL Globulin (1.3-4.6) g/dL Procalcitonin (0-0.5) ng/mL TSH 1.15 (0.27-4.20) uIU/ mL Urine Color Yellow (Yellow) Urine Appearance Clear (CLEAR) Urine pH 5 (5-7) Ur Specific Gravit y 1.020 (1.005-1.030) Urine Protein Neg (Negative) Urine Glucose (UA) Norm (Normal) Urine Ketones Negative (Negative) Urine Blood Neg (Negative) Urine Nitrate Negative (Negative) Urine Bilirubin Neg (NEGATIVE) Urine Urobilinogen Norm (Negative) mg/dL Ur Leukocyte Kierra ase Negative (Negative) Digoxin 0.6 (0.6-1.2) ng/mL Discharge Plan Discharge Admit Provider: Brenda Vazquez Coding Level of Care Code ED 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
[2020-04-13 18:54] LABS: Digoxin 0.6 ng/mL (0.6-1.2); Thyroid Stimulating Hormone 1.15 uIU/mL (0.27-4.20)
--- NOTE | 2020-04-13 19:01 | ECG_ITS ---
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 Measurements Intervals [place] Rate: 68 P: IA: -1 QRS: -75 QRSD: 189 T: 100 QT: 499 QTc: 534 Interpretive Statements ELECTRONIC VENTRICULAR PACEMAKER ABNORMAL RHYTHM ECG Compared to ECG 04/12/2020 23:52:13 No significant changes Electronically Signed On 04-14-2020 12:42:00 CDT by Rosio Lynch M.D. [email or web address]
--- NOTE | 2020-04-13 19:02 | CTR_ITS ---
PROCEDURE INFORMATION: Exam: CT Head Without Contrast Exam date and time: 04/13/2020 7:46 PM Age: 74 years old Clinical indication: Altered mental status/memory loss; Confusion or disorientation; Patient HX: HX of nhl, thyroid and prostate CA w AMS and weakness TECHNIQUE: Imaging protocol: Computed tomography of the head without contrast. Radiation optimization: All CT scans at this facility use at least one of these dose optimization techniques: automated exposure control; mA and/or kV adjustment per patient size (includes targeted exams where dose is matched to clinical indication); or iterative reconstruction. COMPARISON: CT head wo con* [id number] 02/19/2020 2:36 PM RADIATION DOSE METRICS: Total DLP (mGy-cm): 876.15 FINDINGS: Brain: Moderate cerebral atrophy. Ventricles: Normal. No ventriculomegaly. Bones/joints: Unremarkable. No acute fracture. Sinuses: Mild right ethmoid sinus disease. Mastoid air cells: Visualized mastoid air cells are well aerated. Vasculature: Severe calcified intracranial atherosclerotic vessel disease. Soft tissues: Unremarkable. Other findings: Examination is limited secondary to motion artifact. CT/CT head wo con* [id number] IMPRESSION: 1. Mild right ethmoid sinus disease. 2. No acute intracranial findings. Radiation Dose CTDIVOL = (mGy): DLP = 876.15 (mGy-cm)
--- NOTE | 2020-04-13 19:02 | CTR_ITS ---
PROCEDURE INFORMATION: Exam: CT Angiography Chest With Contrast Exam date and time: 04/13/2020 7:46 PM Age: 74 years old Clinical indication: Cough and fever and shortness of breath; Prior surgery; Surgery date: 6+ months; Surgery type: Pacer; Patient HX: HX of nhl, thyroid and prostate CA C/O fever, weakness, cough and SOB; Additional info: Fever, cough, SOB TECHNIQUE: Imaging protocol: Computed tomographic angiography of the chest with intravenous contrast. 3D rendering: MIP and/or 3D reconstructed images were created by the technologist. Radiation optimization: All CT scans at this facility use at least one of these dose optimization techniques: automated exposure control; mA and/or kV adjustment per patient size (includes targeted exams where dose is matched to clinical indication); or iterative reconstruction. Contrast material: OMNI 350; Contrast volume: 95 ml; Contrast route: INTRAVENOUS (IV); COMPARISON: CT chest [facility] [id number] 11/11/2019 3:53 PM RADIATION DOSE METRICS: Total DLP (mGy-cm): 635.77 FINDINGS: Tubes, catheters and devices: Stable left pacemaker. Pulmonary arteries: No pulmonary embolus or aortic dissection. Great vessels off aortic arch: Calcification of the thoracic aorta and/or great vessels consistent with atherosclerotic vessel disease. Aorta: Unremarkable. No aortic aneurysm. No aortic dissection. Lungs: Moderate posterior segment right upper lobe pneumonia with moderate bilateral lower lobe pneumonia. Pleural space: Unremarkable. No pneumothorax. No pleural effusion. Heart: Stable severe calcified coronary artery disease. Lymph nodes: Stable left calcified hilar nodes and/or mediastinal nodes and/or lung nodules consistent with old granulomatous disease. Mild right hilar adenopathy which may be reactive. Bones/joints: Unremarkable. No acute fracture. Soft tissues: Unremarkable. Other findings: Examination is limited by artifact from one or both arms by the patient's side. Extensive postoperative changes in the upper abdomen which appear grossly unchanged. CT/CT angio chest PE protcl [id number] IMPRESSION: 1. Moderate posterior segment right upper lobe pneumonia with moderate bilateral lower lobe pneumonia. 2. Stable severe calcified coronary artery disease. 3. Mild right hilar adenopathy which may be reactive. Radiation Dose CTDIVOL = (mGy): DLP = 635.77 (mGy-cm)
--- NOTE | 2020-04-13 19:14 | PC.NURSE ---
EKG done at 191 and shown to ER doctor
[2020-04-13 20:01] LABS: Troponin 5 2HR 40.66 ng/L (0-15)
[2020-04-13] MEDS: iohexol 350 mg/mL 100 mL Btl IV (20:23)
[2020-04-13 20:25] LABS: Troponin(5th) Baseline 48 ng/L (0-15)
[2020-04-13 20:42] LABS: Troponin 5 2HR Delta -7.34 ABS# (0-10)
[2020-04-13 21:03] VITALS: BP 152/90; PULSE 70; RESP 15; O2SAT 98
--- NOTE | 2020-04-13 21:39 | PM.HP ---
Providers/Chief Complaint Primary Care Provider: Jacob Valladares DO Chief Complaint: AMS History of Present Illness Abdullahi Maurice is a 74 year old male who has multiple comorbid conditions, 4 L oxygen dependent at home, non-Hodgkin's lymphoma in remission, thyroidectomy for medullary thyroid cancer malignancy, recurrent decompensated diastolic congestive heart failure status post permanent pacemaker placement, PAOLA coming in today with chief complaint of worsening shortness of breath and confusion. In October he was bacteremic with coagulase-negative staph, transesophageal echo did not reveal any vegetation(however suboptimal quality), he was treated for pneumonia at that time for worsening confusion as well. Patient is being followed by Dr. Stover in [place] for pancreatic mass and [facility] for thyroid carcinoma. He was discharged with 35-day course of vancomycin for staph bacteremia. Patient is stating that for last couple of days he has been experiencing extreme lethargy, fatigue, decreased p.o. intake, some confusion with low-grade temperature, temperature at home was 100.0 for which he was evaluated in the ER yesterday and was discharged home after COVID testing. His brought him back because of his poor p.o. intake and confusion spells at home. Today at the time of my evaluation patient is stating that whenever he gets febrile episodes he becomes really confused, in September he was treated for pneumonia and completed prolonged course of antibiotics, he is leading a sedentary lifestyle, for last couple of days he has been experiencing more shortness of breath which is at exertion, he is denying orthopnea, PND, chest pain, diarrhea or dysuria. He has not noticed any productive cough fever above 100.4 excessive shortness of breath at rest. Diagnosis in the ER revealed normal temperature, normal hemodynamics, covid pcr came back negative Today CT head was done which did not reveal any acute pathological process, CTA chest revealed infiltrates right upper lobe with mild CHF exacerbation In the ER he has received ceftriaxone and azithromycin which she received yesterday as well. At the time of my evaluation he was experiencing rigors, repeat oral temperature was 98.9. BNP 1400 he was given 60 mg of IV Lasix, ABG shows mild respiratory acidosis Review of Systems Const: Reports: fever(s), chills, change in appetite and daytime sleepiness Eyes: Denies: change in vision ENMT: Denies: throat pain Card: Reports: swelling of feet/ankles and dyspnea on exertion; Denies: chest pain or orthopnea Resp: Reports: dyspnea and non-productive cough; Denies: productive cough GI: Reports: constipation; Denies: abdominal pain, nausea, vomiting or diarrhea : Denies: flank pain Musc: Denies: neck pain Skin/Breast: Denies: rash Neuro: Reports: headache(s) Psych: Denies: anxiety Endo: Denies: polyuria Sean/Lymph: Denies: easy bruising All/Imm: Denies: urticaria Medications/Allergies Home Medications Medication Instructions Recorded Confirmed Last Taken Type ascorbic acid (vitamin C) 1,000 mg 1,000 mg PO BID tab 10/24/19 03/20/20 11/10/19 History tablet alprazolam 1 mg PO TID PRN 11/11/19 03/20/20 11/10/19 06:00 History amlodipine 5 mg PO DAILY 11/11/19 03/20/20 11/10/19 History aspirin 81 mg PO DAILY 11/11/19 03/20/20 11/10/19 History cholecalciferol (vitamin D3) 125 mcg PO DAILY 11/11/19 03/20/20 11/10/19 History [Vitamin D3] duloxetine 60 mg PO DAILY 11/11/19 03/20/20 11/10/19 History gabapentin 800 mg PO QID 11/11/19 03/20/20 11/10/19 History levothyroxine [Synthroid] 125 mcg PO DAILY 11/11/19 03/20/20 11/10/19 History lisinopril 2.5 mg PO DAILY 11/11/19 03/20/20 11/10/19 History oxycodone-acetaminophen 1 tab PO Q4H PRN 11/11/19 03/20/20 11/10/19 History tamsulosin 0.4 mg PO BEDTIME 11/11/19 03/20/20 11/10/19 History bisacodyl 5 mg tablet 5 mg PO DAILY PRN 01/30/20 03/20/20 Unknown History docusate sodium 100 mg capsule 100 mg PO BID PRN 01/30/20 03/20/20 Unknown History ferrous sulfate 325 mg (65 mg 325 mg PO BID 01/30/20 03/20/20 Unknown History iron) tablet furosemide 20 mg tablet 20 mg PO QAM 01/30/20 03/20/20 Unknown History metoprolol succinate 50 mg 150 mg PO BEDTIME 01/30/20 03/20/20 Unknown History tablet,extended release 24 hr methenamine hippurate 1 gram tablet 1 gm PO BID #60 tab 01/31/20 03/20/20 Unknown Rx digoxin 125 mcg PO DAILY 02/19/20 03/20/20 Unknown History Allergies Allergy/AdvReac Type Severity Reaction Status Date / Time No Known Allergies Allergy Verified 04/13/20 16:45 PFSH Acute PFSH: Medical History Acute on chronic diastolic (congestive) heart failure Arrhythmia Chronic anemia CKD (chronic kidney disease) 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 coli infection History of thyroid cancer Hypertension Hypothyroidism Lower urinary tract symptoms Morbid obesity Obstructive sleep apnea Pacemaker Prostate cancer Recurrent UTI Urinary incontinence Urolithiasis Surgical History History of gastric bypass History of parathyroidectomy History of permanent cardiac pacemaker placement History of spinal surgery MULTIPLE LOWER SPINE SURGERY History of thyroidectomy Hx of tonsillectomy Status post open reduction with internal fixation (ORIF) of fracture of ankle Family History Sister Cancer Father , at age 73 CAD (coronary artery disease) Mother , at age 76 Alzheimer's dementia Social History Smoking and tobacco status: never smoked Alcohol intake: former Adopted: No Caregiver/support person: No Lives independently: No Household members: spouse Marital status: Current occupational status: retired History of recent travel: No Vitals/I&O/Wt Last Vital Signs Temp 97.6 F 04/13/20 16:44 Pulse 70 04/13/20 21:03 Resp 15 04/13/20 21:03 BP 152/90 04/13/20 21:03 Pulse Ox 98 04/13/20 21:03 Weight last 48 hrs Weight 149.685 kg Physical Exam Narrative: EXAM NARRATIVE: Morbidly obese male currently lying comfortable in his bed saturating well on 2 L nasal cannula Normal hemodynamics, he is afebrile No active respiratory distress He is laying in supine position without any shortness of breath or orthopnea or PND Hard to auscultate heart sounds however there is mild exacerbation of CHF with positive bilateral lower extremity edema 1+ Distended abdomen ventral hernia, soft, distal obesity, nontender Neurologically nonfocal exam does not look confused awake alert oriented x3 GCS 15 EOMI, PERRLA Mild eye crusting right eye greater than left Appropriate mood and Urinary Catheter Management^: Melendez: Cath Placed During This Visit: yes Urinary Catheter Date of Insertion: 04/13/20 Urinary Catheter Time of Insertion: 17:43 Data : 04/13/20 17:00 04/13/20 17:00 Micro: Microbiology 04/13/20 17:06 Blood Culture - Preliminary Blood SPECIMEN COLLECTED 04/13/20 17:00 Blood Culture - Preliminary Blood SPECIMEN COLLECTED A&P Assessment and plan (1) Oxygen dependent: Status: Acute (2) SOB (shortness of breath): Status: Acute (3) Community acquired pneumonia: Status: Acute (4) Acute on chronic diastolic (congestive) heart failure: Status: Acute (5) Diastolic heart failure: Status: Acute (6) Hypothyroidism: Status: Acute (7) History of thyroid cancer: Status: Acute (8) Fatigue: Status: Acute (9) Pacemaker: Status: Acute (10) Obstructive sleep apnea: Status: Acute (11) Morbid obesity: Status: Acute (12) Chronic anemia: Status: Acute Additional A&P Information Community-acquired pneumonia No active encephalopathy Pneumonia severity index moderate CTA rule out PE Chronic hypoxic respiratory failure currently saturating well on his home regimen 2 L ABG showed mild respiratory acidosis I would use vancomycin Zosyn and Levaquin considering his immunocompromised state however he is not septic, he is afebrile no leukocytosis, I am anticipating he will be de-escalated rather quickly to p.o. antibiotic Would obtain urine antigens, blood culture, sputum culture COVID PCR test negative Diastolic congestive heart failure exacerbation Mild signs clinically Would use Bumex 1 mg p.o. daily Continue lisinopril, metoprolol succinate has been switched to tartrate on previous admission(I am not certain why this was changed) His last echo was done in October, I would not repeat at this point Check TSH Medullary thyroid cancer Pancreatic mass, non-Hodgkin's lymphoma He has been followed up by different oncologist, his non-Hodgkin's lymphoma is in remission Pancreatic mass biopsy has not shown any malignancy yet which was done at [facility] Sick sinus syndrome status post pacemaker placement Normal hemodynamics Hypothyroidism: Continue home dose of levothyroxine Obstructive sleep apnea Continue respiratory acidosis I will use BiPAP overnight Full code Cardiac diet DVT prophylaxis Lovenox Attestations Medical Necessity Statement*: I am anticipating he will stay more than 2 midnights in the hospital currently being treated with broad-spectrum antibiotics for community-acquired pneumonia considering his immunocompromise state he is on 3 different antibiotics has had intermittent episode of confusion at home Time Spent in Patient Care: 60 minutes Coding Level of Care Code Acute Pbx Inspector for [facility] Diagnoses Oxygen dependent Z99.81 SOB (shortness of breath) R06.02 Community acquired pneumonia J18.9 Acute on chronic diastolic (congestive) heart failure I50.33 Diastolic heart failure I50.30 Hypothyroidism E03.9 History of thyroid cancer Z85.850 Fatigue R53.83 Pacemaker Z95.0 Obstructive sleep apnea G47.33 Morbid obesity E66.01 Chronic anemia D64.9
[2020-04-13 21:49] VITALS: BP 132/70; PULSE 72; RESP 18; O2SAT 97
[2020-04-13 23:00] VITALS: BP 120/82
[2020-04-13 23:02] LABS: Thyroid Stimulating Hormone 1.08 uIU/mL (0.27-4.20)
--- NOTE | 2020-04-13 23:17 | PC.PHAR ---
Vancomycin is dosed at 1000mg IVPB every 8 hours to produce a predicted trough level of 13.17 (population based pharmacokinetic analysis). A trough level has been ordered from the lab to be obtained before the fourth dose to confirm and adjust if needed. The Zosyn is dosed at 3.375gm IVPB every 8 hours per protocol on basis of creatinine clearance of 102.6, each dose to to be infused over four hours per extended infusion protocol.
[2020-04-14] VITALS (14 sets, daily range): BP systolic 127–144; BP diastolic 74–86; PULSE 71–94; RESP 16–28; TEMP 36.9–37.7; O2SAT 94–99
[2020-04-14] MEDS: enoxaparin 40 mg/0.4 mL Syringe SUBCUT ×2 (00:11→23:17)
[2020-04-14] MEDS: HYDROmorphone 1 mg/mL INJ 1 mL 2 MG IVP (00:31)
--- NOTE | 2020-04-14 01:01 | ECG_ITS ---
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 Measurements Intervals [place] Rate: 95 P: NV: -1 QRS: 72 QRSD: 97 T: -73 QT: 324 QTc: 408 Interpretive Statements ATRIAL FIBRILLATION ST DEVIATION AND MODERATE T-WAVE ABNORMALITY, CONSIDER INFERIOR ISCHEMIA Compared to ECG 04/13/2020 19:19:40 T-wave abnormality now present Possible ischemia now present Ventricular-paced complex(es) or rhythm no longer present Electronically Signed On 04-14-2020 12:50:46 CDT by Rosio Lynch M.D. [id number]
[2020-04-14] MEDS: levoFLOXacin 750 mg Tablet PO ×2 (01:08→01:14)
[2020-04-14] MEDS: vancomycin 1,000 MG in sodium chloride 0.9% 250 ML 250 MG IV ×3 (01:13→16:52)
[2020-04-14] MEDS: piperacillin-tazobactam 3.375 GM in sodium chloride 0.9% (plus) 50 ML IV ×3 (04:12→19:42)
[2020-04-14 06:08] LABS: Basophils % 0.2 %; Eosinophils # 0.2 10^3/uL (0.0-0.8); Eosinophils % 1.9 %; Hematocrit 32.4 % (42.0-52.0); Hemoglobin 10.2 g/dL (11.7-16.6); Lymphocytes # 0.8 10^3/uL (0.8-4.8); Lymphocytes % 8.6 %; Mean Corpuscular HGB Conc 31.5 g/dL (30.0-36.0); Mean Corpuscular Hemoglobin 30.9 pg (28.0-34.0); Mean Corpuscular Volume 98.2 fL (80-94); Mean Platelet Volume 10.6 fL (7.4-10.4); Monocytes # 0.6 10^3/uL (0.2-0.9); Monocytes % 6.3 %; Neutrophils % 82.5 %; Nucleated Red Blood Cells % 0 %; Platelet Count 178 10^3/cmm (130-400); Red Cell Distribution Width 16.2 % (12.1-15.1); White Blood Count 8.9 10^3/uL (4.0-10.0)
[2020-04-14] MEDS: morphine IR 15 mg Tablet PO (06:09)
[2020-04-14 06:29] LABS: ABG PCO2 45.3 mmHg (35-45); ABG PH Result 7.41 (7.35-7.45); Arterial Blood Gas Hematocrit 33.7 % (42-52); Base Excess ABG 3.2 mmol/L (-2.0-2.0); Blood Gas Sample Site Brachial, right; Blood Gas Sample Type Arterial; HCO3 ABG 28.5 mmol/L (22-26); Oxygen Device NC; PO2 ABG 95.1 mmHg (80.0-100.0)
[2020-04-14 06:33] LABS: Anion Gap 12.3 (5-19); Blood Urea Nitrogen 21 mg/dL (8-23); Calcium 8.6 mg/dL (8.5-10.5); Carbon Dioxide 26 mmol/L (22-29); Chloride 104 mmol/L (98-107); Glucose 104 mg/dL (65-115); Osmolality Calculated 283 mOsm/kg (285-295); Potassium 4.3 mmol/L (3.5-5.1); Sodium 138 mmol/L (136-145)
[2020-04-14] MEDS: gabapentin 300 mg Capsule PO ×4 (08:11→20:43)
[2020-04-14] MEDS: metoprolol tartrate 25 mg Tablet PO ×2 (08:11→16:53)
[2020-04-14] MEDS: sennosides-docusate Tablet 1 TAB PO (08:11)
[2020-04-14] MEDS: lisinopril 2.5 mg Tablet PO (08:11)
[2020-04-14] MEDS: levothyroxine 125 mcg Tablet PO (08:11)
[2020-04-14] MEDS: aspirin 81 mg EC Tablet PO (08:11)
[2020-04-14] MEDS: bumetanide 1 mg Tablet PO (08:11)
[2020-04-14] MEDS: digoxin 125 mcg Tablet PO (08:11)
--- NOTE | 2020-04-14 08:52 | PC.NURSE ---
pardo catheter removed at 0810, 9ml removed from balloon, pt tolerated well.
--- NOTE | 2020-04-14 11:11 | P.PN_ITS ---
Subjective Subjective: Interval history: Abdullahi reports he is doing somewhat better than he was. Denies any specific complaints currently. Reports he is less short of breath. No chest pain. History and physical reviewed. Medications: Reviewed: Yes Vitals/I&O/Wt Last Vital Signs Temp 98.7 F 04/14/20 07:53 Pulse 76 04/14/20 08:11 Resp 20 H 04/14/20 07:53 BP 127/75 04/14/20 07:53 Pulse Ox 98 04/14/20 07:53 04/13/20 04/14/20 04/14/20 22:59 06:59 14:59 Intake Total 250 / 250 1160 / 1160 Output Total 5300 / 5300 200 / 200 Balance -5050 / -5050 960 / 960 Weight last 48 hrs Weight 149.685 kg Physical Exam Narrative: EXAM NARRATIVE: General exam no apparent distress Cardiovascular regular rate and rhythm without murmur Lungs few coarse breath sounds in the bases Abdomen is soft obese nontender Extremities trace edema. Urinary Catheter Management^: Melendez: Cath Placed During This Visit: yes Urinary Catheter Date of Insertion: 04/13/20 Urinary Catheter Time of Insertion: 17:43 Data : 04/14/20 05:15 04/14/20 05:15 Micro: Microbiology 04/13/20 06:10 Bacterial Antigens - Final Urine,Clean Catch 04/13/20 06:10 Legionella Urinary Antigen - Final Urine Catheterized 04/13/20 17:06 Blood Culture - Preliminary Blood SPECIMEN COLLECTED 04/13/20 17:00 Blood Culture - Preliminary Blood SPECIMEN COLLECTED A&P Assessment and plan (1) Community acquired pneumonia: As he is immunocompromised he was started on vancomycin, Zosyn, Levaquin. Check MRSA PCR. If negative consider discontinuing vancomycin if his blood cultures remain negative. CTA was performed which demonstrated no evidence of pulmonary embolism. Very recent Covid 19 negative Await sputum culture Status: Acute (2) Diastolic heart failure: Bumex has been initiated. Continue. Previous echocardiogram done October, with preserved EF. Status: Acute Additional A&P Information Confusion on admission, resolved History of coagulase negative staph bacteremia in October, with negative JOSE at that time, for which she completed a prolonged course of IV antibiotics. Secondary to this await at least 48-hour read on blood cultures prior to discontinuing vancomycin Elevated troponin, with no significant delta. Mild anemia, which appears chronic History of sick sinus syndrome with pacemaker placement. Currently on digoxin and metoprolol presumably for atrial fibrillation in the past. Medullary thyroid cancer History of pancreatic mass, currently being followed by imaging History of non-Hodgkin's lymphoma Hypothyroidism Obstructive sleep apnea Full code Lovenox for DVT prophylaxis Attestations Medical Necessity Statement*: Needs continued hospitalization for IV antibiotics related to pneumonia. Coding Level of Care Code Acute Maintenance Service Dispatcher for [facility] Diagnoses Community acquired pneumonia J18.9 Diastolic heart failure I50.30
[2020-04-14] MEDS: oxyCODONE-APAP 10-325 mg Tablet 1 TAB PO ×3 (11:58→23:16)
--- NOTE | 2020-04-14 18:40 | PC.NURSE ---
SHIFT SUMMARY PT HAS DONE WELL TODAY, HE HAS TRANSFERRED FROM THE BED TO CHAIR WITH MINIMAL ASSISTANCE USING HIS WALKER. PAIN HAS BEEN WELL CONTROLLED WITH ORAL MEDICATIONS, HE HAS HAD GOOD URINE OUTPUT.
[2020-04-14] MEDS: tamsulosin 0.4 mg Capsule PO (20:43)
[2020-04-14] MEDS: acetaminophen 325 mg Tablet 650 MG PO (20:43)
[2020-04-15] VITALS (16 sets, daily range): BP systolic 125–151; BP diastolic 70–94; PULSE 67–78; RESP 14–20; TEMP 36.4–36.7; O2SAT 93–100
[2020-04-15 00:27] LABS: Vancomycin Trough 15.1 ug/mL (10-15)
[2020-04-15] MEDS: vancomycin 1,000 MG in sodium chloride 0.9% 250 ML 250 MG IV ×4 (00:33→23:40)
[2020-04-15] MEDS: oxyCODONE-APAP 10-325 mg Tablet 1 TAB PO ×4 (04:58→23:00)
[2020-04-15] MEDS: piperacillin-tazobactam 3.375 GM in sodium chloride 0.9% (plus) 50 ML IV ×2 (04:59→10:44)
[2020-04-15] MEDS: levoFLOXacin 750 mg Tablet PO (06:04)
[2020-04-15 06:52] LABS: Alanine Aminotransferase 19 U/L (0-41); Alkaline Phosphatase 67 IU/L (40-130); Aspartate Amino Transferase 27 U/L (0-40); Blood Urea Nitrogen 18 mg/dL (8-23); Calcium 8.1 mg/dL (8.5-10.5); Carbon Dioxide 27 mmol/L (22-29); Chloride 103 mmol/L (98-107); Globulin 3.2 g/dL (1.3-4.6); Glucose 90 mg/dL (65-115); Osmolality Calculated 284 mOsm/kg (285-295); Sodium 139 mmol/L (136-145); Total Bilirubin 0.7 mg/dL (0.15-1.2); Total Protein 6.2 g/dL (6.6-8.7)
[2020-04-15 07:32] LABS: Basophils % 0.6 %; Eosinophils # 0.5 10^3/uL (0.0-0.8); Eosinophils % 9.4 %; Hematocrit 31.6 % (42.0-52.0); Lymphocytes # 0.9 10^3/uL (0.8-4.8); Lymphocytes % 18.2 %; Mean Corpuscular HGB Conc 31.6 g/dL (30.0-36.0); Mean Corpuscular Hemoglobin 30.7 pg (28.0-34.0); Mean Corpuscular Volume 96.9 fL (80-94); Mean Platelet Volume 9.8 fL (7.4-10.4); Monocytes # 0.5 10^3/uL (0.2-0.9); Monocytes % 9.6 %; Neutrophils # 3.16 10^3/uL (1.8-7.7); Nucleated Red Blood Cells % 0 %; Platelet Count 184 10^3/cmm (130-400); Red Blood Count 3.26 10^6/uL (4.1-5.3); Red Cell Distribution Width 15.6 % (12.1-15.1); White Blood Count 5.1 10^3/uL (4.0-10.0)
[2020-04-15] MEDS: digoxin 125 mcg Tablet PO (08:12)
[2020-04-15] MEDS: sennosides-docusate Tablet 1 TAB PO (08:14)
[2020-04-15] MEDS: metoprolol tartrate 25 mg Tablet PO ×2 (08:14→16:32)
[2020-04-15] MEDS: bumetanide 1 mg Tablet PO (08:14)
[2020-04-15] MEDS: lisinopril 2.5 mg Tablet PO (08:14)
[2020-04-15] MEDS: aspirin 81 mg EC Tablet PO (08:14)
[2020-04-15] MEDS: levothyroxine 125 mcg Tablet PO (08:14)
[2020-04-15] MEDS: gabapentin 300 mg Capsule PO ×4 (08:14→21:25)
--- NOTE | 2020-04-15 16:50 | PM.PN ---
Subjective Subjective: Interval history: He reports he is doing all right. Denies any specific complaints at this time. Asking when he may return home. Discussed with him with regards to concern for bacteria found on blood culture. He denies any recent changes in symptoms. Denies any rash or skin changes that are new, no changes around pacemaker pocket. He reports that his breathing has been getting gradually better. He reports recently was started on oxygen. Denies any chest pain or pressure. Denies cough. He believes that he had seen an infectious disease doctor after his discharge in October, but says his memory is not the best, asked to confirm with his daughter. Vitals/I&O/Wt Last Vital Signs Temp 97.7 F 04/15/20 16:00 Pulse 67 04/15/20 16:00 Resp 18 04/15/20 16:33 BP 147/85 04/15/20 16:00 Pulse Ox 99 04/15/20 16:00 04/15/20 04/15/20 04/15/20 06:59 14:59 22:59 Intake Total 600 / 3160 1260 / 1260 Output Total 800 / 2675 1250 / 1250 Balance -200 / 485 Physical Exam Const: COMMON NORMALS: no acute distress and patient oriented x3 NUTRITIONAL APPEARANCE: obese HENMT: COMMON NORMALS: oropharynx normal Neck/C-Spine: COMMON NORMALS: no JVD Chest: OTHER: Pacemaker pocket appears healthy. Old well-healed scar. Resp: COMMON NORMALS: normal respiratory effort and clear to auscultation bilaterally AUSCULTATION: clear to auscultation bilaterally Cardio: COMMON NORMALS: no JVD, regular rhythm, S1 normal heart sound present, S2 normal heart sound present and No murmurs present (Cardio) RHYTHM: regular rhythm HEART SOUNDS: S1 normal heart sound present and S2 normal heart sound present GI: COMMON NORMALS: Normal to inspection, nondistended, normoactive bowel sounds present, Soft to palpation and non-tender PALPATION: Yes Soft to palpation Extremity: COMMON NORMALS: no joint enlargement Neuro: COMMON NORMALS: patient oriented x3 and moves all extremities Skin: COMMON NORMALS: no rashes or lesions noted GENERAL SKIN EXAM: no rashes or lesions noted OTHER: No splinter hemorrhages on nails, or other skin changes. Urinary Catheter Management^: Melendez: Cath Placed During This Visit: yes Urinary Catheter Date of Insertion: 04/13/20 Urinary Catheter Time of Insertion: 17:43 Data : 04/15/20 07:26 04/15/20 06:07 Micro: Microbiology 04/13/20 17:00 Blood Culture - Preliminary Blood Gram positive phi Gram positive cocci 04/13/20 17:06 Blood Culture - Preliminary Blood NEGATIVE TO DATE 04/14/20 12:18 MRSA Culture - Final Nose A&P Assessment and plan (1) Gram-positive bacteremia: Gram-positive coccus and gram-positive phi noted on blood culture in 1/4 bottles. Discussed with him, as well as his daughter Chacha. At this time it is not clear whether this is in fact some sort of recurrence of thrombus of bacteremia from October, versus a chance contamination of the sample from scan. Patient daughter both verbalized understanding that in case there is recurrence, he is at high risk of complicated infection given history of immune suppression, but also given presence of foreign body with pacemaker wire. Does have some history of hardware in his ankle. At this time requested for blood culture to be repeated. We will check ESR, CRP. Follow-up ID and sensitivity on the positive blood culture. For now continue vancomycin. Discussed with him that in case of concern for recurrence of infection, would benefit from additional evaluation by infectious disease. He is requesting for discharge rather sooner than later, even though understands possible consequences of missed infection, states that he had a really difficult time coping with getting IV antibiotics at [facility] living last time, and at that time there were not yet pandemic restrictions in place. Discussed with him that depending on clinical course we may need to consider inpatient transfer for infectious disease evaluation, versus outpatient follow-up. He verbalized understanding. Discussed same also with his daughter. She will find out for us which infectious disease doctor he had seen previously so we may try to request records. Status: Acute (2) Community acquired pneumonia: He reports breathing has been improving. Denies cough. Denies shortness of breath, chest pain or pressure. Stop Zosyn. Continue vancomycin at this time due to gram-positive bacteremia, although MRSA PCR is negative. Continue Levaquin. Monitor. Very recent Covid 19 negative Await sputum culture Status: Acute (3) Diastolic heart failure: Bumex has been initiated. Continue. Previous echocardiogram done October, with preserved EF. Status: Acute Additional A&P Information Confusion on admission, resolved History of coagulase negative staph bacteremia in October, with negative JOSE at that time, for which she completed a prolonged course of IV antibiotics. Elevated troponin, with no significant delta. Mild anemia, which appears chronic History of sick sinus syndrome with pacemaker placement. Currently on digoxin and metoprolol presumably for atrial fibrillation in the past. Medullary thyroid cancer History of pancreatic mass, currently being followed by imaging History of non-Hodgkin's lymphoma Hypothyroidism Obstructive sleep apnea Full code Lovenox for DVT prophylaxis Attestations Medical Necessity Statement*: Continue admission for assessment of management of gram-positive bacteremia. Coding Level of Care Code Acute Lead Systems Architect for [facility] Diagnoses Gram-positive bacteremia R78.81 Community acquired pneumonia J18.9 Diastolic heart failure I50.30
[2020-04-15 17:47] LABS: C Reactive Protein 31.4 mg/L (0.0-4.9)
[2020-04-15 18:34] LABS: Erythrocyte Sedimentation Rate 22 mm/hr (0-10)
[2020-04-15] MEDS: ondansetron 2 mg/ML SDV 2 mL 4 MG IVP (21:25)
[2020-04-15] MEDS: tamsulosin 0.4 mg Capsule PO (21:25)
[2020-04-15] MEDS: enoxaparin 40 mg/0.4 mL Syringe SUBCUT (23:00)
[2020-04-16] VITALS (11 sets, daily range): BP systolic 102–137; BP diastolic 59–82; PULSE 52–77; RESP 14–20; TEMP 35.9–36.9; O2SAT 90–99
[2020-04-16] MEDS: oxyCODONE-APAP 10-325 mg Tablet 1 TAB PO ×4 (03:35→22:35)
[2020-04-16 05:12] LABS: Basophils % 0.6 %; Eosinophils # 0.5 10^3/uL (0.0-0.8); Hemoglobin 10.6 g/dL (11.7-16.6); Lymphocytes # 1.1 10^3/uL (0.8-4.8); Mean Corpuscular HGB Conc 31.2 g/dL (30.0-36.0); Mean Corpuscular Hemoglobin 30.1 pg (28.0-34.0); Mean Corpuscular Volume 96.6 fL (80-94); Mean Platelet Volume 10.4 fL (7.4-10.4); Monocytes # 0.4 10^3/uL (0.2-0.9); Monocytes % 7.9 %; Neutrophils # 3.32 10^3/uL (1.8-7.7); Neutrophils % 61.1 %; Nucleated Red Blood Cells % 0 %; Platelet Count 212 10^3/cmm (130-400); Red Blood Count 3.52 10^6/uL (4.1-5.3); Red Cell Distribution Width 15.7 % (12.1-15.1); White Blood Count 5.4 10^3/uL (4.0-10.0)
[2020-04-16 05:32] LABS: Alanine Aminotransferase 16 U/L (0-41); Albumin Level 3.1 g/dL (3.5-5.2); Alkaline Phosphatase 66 IU/L (40-130); Anion Gap 10.6 (5-19); Aspartate Amino Transferase 23 U/L (0-40); Blood Urea Nitrogen 17 mg/dL (8-23); Calcium 8.7 mg/dL (8.5-10.5); Carbon Dioxide 31 mmol/L (22-29); Chloride 100 mmol/L (98-107); Globulin 3.1 g/dL (1.3-4.6); Glucose 94 mg/dL (65-115); Osmolality Calculated 282 mOsm/kg (285-295); Potassium 3.6 mmol/L (3.5-5.1); Sodium 138 mmol/L (136-145); Total Bilirubin 0.5 mg/dL (0.15-1.2); Total Protein 6.2 g/dL (6.6-8.7)
[2020-04-16] MEDS: levoFLOXacin 750 mg Tablet PO (05:41)
[2020-04-16 08:30] LABS: Vancomycin Trough 18.8 ug/mL (10-15)
[2020-04-16] MEDS: vancomycin 1,000 MG in sodium chloride 0.9% 250 ML 250 MG IV ×2 (09:15→16:54)
[2020-04-16] MEDS: digoxin 125 mcg Tablet PO (09:16)
[2020-04-16] MEDS: sennosides-docusate Tablet 1 TAB PO (09:16)
[2020-04-16] MEDS: bumetanide 1 mg Tablet PO (09:16)
[2020-04-16] MEDS: aspirin 81 mg EC Tablet PO (09:16)
[2020-04-16] MEDS: gabapentin 300 mg Capsule PO ×4 (09:17→20:12)
[2020-04-16] MEDS: lisinopril 2.5 mg Tablet PO (09:17)
[2020-04-16] MEDS: levothyroxine 125 mcg Tablet PO (09:17)
[2020-04-16] MEDS: metoprolol tartrate 25 mg Tablet PO ×2 (09:17→16:56)
--- NOTE | 2020-04-16 10:22 | PC.NURSE ---
Pt received Sonic from daughter this morning, as well as a breakfast tray.
--- NOTE | 2020-04-16 11:16 | PC.SOCIAL ---
IMM Update Pg. 2 of IMM given and explained to patient who verbalized understanding. Copy provided to patient.
[2020-04-16] MEDS: ondansetron 2 mg/ML SDV 2 mL 4 MG IVP (16:05)
--- NOTE | 2020-04-16 18:37 | PM.PN ---
Subjective Subjective: Interval history: Denies any new symptoms today. No problems with breathing. No cough. Vitals/I&O/Wt Last Vital Signs Temp 98.4 F 04/16/20 16:00 Pulse 71 04/16/20 16:00 Resp 16 04/16/20 16:00 BP 106/63 04/16/20 16:00 Pulse Ox 93 04/16/20 16:00 04/16/20 04/16/20 04/16/20 06:59 14:59 22:59 Intake Total 450 / 2181 1030 / 1030 240 / 1270 Output Total 1375 / 2625 900 / 900 600 / 1500 Balance -925 / -444 130 / 130 -360 / -230 Physical Exam Const: COMMON NORMALS: no acute distress and patient oriented x3 NUTRITIONAL APPEARANCE: obese HENMT: COMMON NORMALS: oropharynx normal Neck/C-Spine: COMMON NORMALS: no JVD Chest: OTHER: Pacemaker pocket appears healthy. Old well-healed scar. Resp: COMMON NORMALS: normal respiratory effort and clear to auscultation bilaterally AUSCULTATION: clear to auscultation bilaterally Cardio: COMMON NORMALS: no JVD, regular rhythm, S1 normal heart sound present, S2 normal heart sound present and No murmurs present (Cardio) RHYTHM: regular rhythm HEART SOUNDS: S1 normal heart sound present and S2 normal heart sound present GI: COMMON NORMALS: Normal to inspection, nondistended, normoactive bowel sounds present, Soft to palpation and non-tender PALPATION: Yes Soft to palpation Extremity: COMMON NORMALS: no joint enlargement Neuro: COMMON NORMALS: patient oriented x3 and moves all extremities Skin: COMMON NORMALS: no rashes or lesions noted GENERAL SKIN EXAM: no rashes or lesions noted OTHER: No splinter hemorrhages on nails, or other skin changes. Urinary Catheter Management^: Melendez: Cath Placed During This Visit: yes Urinary Catheter Date of Insertion: 04/13/20 Urinary Catheter Time of Insertion: 17:43 Data : 04/16/20 04:16 04/16/20 04:16 Micro: Microbiology 04/16/20 10:32 Blood Culture - Preliminary Blood SPECIMEN COLLECTED 04/16/20 10:29 Blood Culture - Preliminary Blood SPECIMEN COLLECTED 04/13/20 17:00 Blood Culture - Preliminary Blood Gram positive phi Gram positive cocci A&P Assessment and plan (1) Gram-positive bacteremia: So far still pending culture from 04/13 for ID and sensitivity. Continue vancomycin. Will DC levaquin as he does not have any respiratory symptoms and infiltrate appears was previously present. Will monitor without for now. Pending repat cultures from 04/15 and 04/16. ESR, CRP with some moderate elevation. Appreciate ID consultation. Discussed with him that in case of concern if recurrence of infection in setting of PPM, bilateral ankle hardware. Daughter is to find out for us which infectious disease doctor he had seen previously in [place] so we may try to request records. Status: Acute (2) Community acquired pneumonia: He reports breathing has been improving. Denies cough. Denies shortness of breath, chest pain or pressure. Stop Zosyn. Continue vancomycin at this time due to gram-positive bacteremia, although MRSA PCR is negative. DC Levaquin as no respiratory symptoms to suggest infection and prior infiltrate in similar location on last CT. Monitor. Very recent Covid 19 negative Await sputum culture. Continue diuresis. Status: Acute (3) Diastolic heart failure: Continue diuresis with Bumex. Previous echocardiogram done October, with preserved EF. Status: Acute Additional A&P Information Confusion on admission, resolved History of coagulase negative staph bacteremia in October, with negative JOSE at that time, for which she completed a prolonged course of IV antibiotics. Elevated troponin, with no significant delta. Mild anemia, which appears chronic History of sick sinus syndrome with pacemaker placement. Currently on digoxin and metoprolol presumably for atrial fibrillation in the past. Medullary thyroid cancer History of pancreatic mass, currently being followed by imaging History of non-Hodgkin's lymphoma Hypothyroidism Obstructive sleep apnea Full code Lovenox for DVT prophylaxis Attestations Medical Necessity Statement*: Continue additional assessment for diastolic CHF, assessment for possible bacteremia. Coding Level of Care Code Acute Sales Ledger Administrator for [facility] Fwd Diagnoses Gram-positive bacteremia R78.81 Community acquired pneumonia J18.9 Diastolic heart failure I50.30
--- NOTE | 2020-04-16 18:48 | P.CONIM_ITS ---
Providers/Reason For Consult Consulting Physican/Specialty*: Jessica Martines MD/Infectious Disease Reason for Consult*: recurrent CoNS bacteremia Attending Physician: Kj Mejia Primary Care Provider: Jacob Valladares DO History of Present Illness History of Present Illness Abdullahi Maurice is a 74 year old male with PMH non-Hodgkin lymphoma diagnosed in 2009 in remissions/p chemo (no raditaion) , Medullary thyroid carcinoma s/p thyroidectomy/cervical lymphadenopathy s/p chemo on expectant management, prostate cancer status post chemotherapy, h/o gastric bypass for weight loss, pancreatic mass under evaluation at [facility] with non diagnostic biopsies x 2, HTN, cardiomyopathy, s/p PPM, CHF (EF 50-55%, gr2 diastolic dysfunction), severe PAOLA with nocturnal hypoxemia, and h/o staph epidermidis presumptive endovascular infection in 10/2019 treated with at least 6 weeks of iv vancomycin, with course completed at a SNF. Patient is currently admitted with 3-4 days of low grade fever, URI type symptoms which started PARIMUTUEL CLERK and subjective confusion that was noticed by his . Covid testing recently negative on 04/12. Denies any other sick contacts. He does complain of some dry cough, however states this is not new for him. He underwent CTA chest upon admission which was negative for PE and showed Moderate posterior segment right upper lobe pneumonia with moderate bilateral lower lobe pneumonia, for which he was started on empiric abx with levaquin/zosyn. Van ocmycin also started due to recent history of CoNS septicemia. Blood cx from 04/12 09/23 subsequently reported as positive for GPC and GPR. Subsequent preliminary cx from 04/16 is thus far negative. Patient is otherwise clinically improving. ID asked to assist with abx given significant recent history. Details from Oct 2019 admission : Patient had presented with generalized weakness and encephalopathy and was found to have staph epidermidis septicemia during his admission with positive blood cx on 11/11 and 11/12. Evidence of clear cx on (no intervening cx available). Of note, his past blood cx from 2018 have been sporadically positive for ConS without any other overt clinical manifestations or prolonged rx in the past. He underwent extensive source evaluation in Oct which included CT CAP, CT imaging of his back given history of laminectomy, negative for discitis. Patient had a transesophageal echocardiogram which was negative for vegetations on valves or pacemaker leads. Patient does have a history of hardware in the bilateral ankles after fractures and underwent a whole body tagged white blood cell scan which showed an ovoid area of white blood cell activity in the right pelvis, nonspecific. CT scan of the abdomen showed patient's history of known pancreatic mass, non diagnostic on biopsies x 2 at [facility]. No overt source was found. ESR has been 34--> 22 trend. Due to presence of PPM, it was decided to treat as preumsptive endovascular infection with total vancomycin course for 6 weeks. He has had an interval blood cx on 02/18 without any growth. Current blood cx as above. Review of Systems General: Reports: 10 or more systems reviewed and unremarkable except in HPI and below Const: Denies: fever(s), chills or body aches Eyes: Denies: change in vision, blurry vision or photophobia ENMT: Reports: hoarseness; Denies: throat pain, enlarged tonsils, odynophagia or nasal congestion Card: Denies: chest pain, palpitations, irregular heart rhythm, edema, swelling of feet/ankles, lightheadedness, pre-syncope, dyspnea on exertion or orthopnea Resp: Denies: dyspnea, productive cough, non-productive cough, wheezing, stridor, pain on inspiration, change in phlegm color, hemoptysis or chest congestion GI: Denies: abdominal pain, nausea, vomiting, hematemesis, coffee ground emesis, dysphagia, heartburn, diarrhea, constipation, GI cramping, change in stool character, hematochezia or melena : Denies: flank pain, dysuria, urinary frequency, urinary urgency, urinary hesitancy or hematuria Musc: Denies: neck pain, back pain, extremity pain, joint swelling, joint warmth or deformity Neuro: Denies: headache(s), numbness in extremities, weakness in extremities, sensory changes, difficulty walking, frequent falls, dizziness, vertigo, behavioral changes, Slurred speech present or seizure-like activity Psych: Denies: anxiety, depression, suicidal ideation or homicidal ideation Endo: Denies: polyuria, polydipsia, tired all the time, cold intolerance or hot flashes Sean/Lymph: Denies: easy bruising or easy bleeding Meds/Allergies Home Medications and Allergies Home Medications Medication Instructions Recorded Confirmed Last Taken Type ascorbic acid (vitamin C) 1,000 mg 1,000 mg PO BID tab 10/24/19 04/14/20 04/13/20 08:00 History tablet alprazolam 1 mg PO TID PRN 11/11/19 04/14/20 11/10/19 06:00 History amlodipine 5 mg PO DAILY 11/11/19 04/14/20 04/13/20 08:00 History aspirin 81 mg PO DAILY 11/11/19 04/14/20 04/13/20 08:00 History cholecalciferol (vitamin D3) 125 mcg PO DAILY 11/11/19 04/14/20 04/13/20 08:00 History [Vitamin D3] duloxetine 60 mg PO DAILY 11/11/19 04/14/20 04/13/20 08:00 History gabapentin 800 mg PO QID 11/11/19 04/14/20 04/13/20 History levothyroxine [Synthroid] 125 mcg PO DAILY 11/11/19 04/14/20 04/13/20 History oxycodone-acetaminophen 1 tab PO Q4H PRN 11/11/19 04/14/20 11/10/19 History tamsulosin 0.4 mg PO BEDTIME 11/11/19 04/14/20 04/12/20 20:00 History bisacodyl 5 mg tablet 5 mg PO DAILY PRN 01/30/20 04/14/20 Unknown History docusate sodium 100 mg capsule 100 mg PO BID PRN 01/30/20 04/14/20 Unknown History ferrous sulfate 325 mg (65 mg 325 mg PO BID 01/30/20 04/14/20 04/13/20 08:00 History iron) tablet metoprolol succinate 50 mg 150 mg PO BEDTIME 01/30/20 04/14/20 04/12/20 20:00 History tablet,extended release 24 hr methenamine hippurate 1 gram tablet 1 gm PO BID #60 tab 01/31/20 04/14/20 04/13/20 Rx digoxin 125 mcg PO DAILY 02/19/20 04/14/20 04/13/20 08:00 History Allergies Allergy/AdvReac Type Severity Reaction Status Date / Time No Known Allergies Allergy Verified 04/13/20 16:45 Current Medications Current Medications Generic Name Dose Route Start Last Admin Trade Name Freq PRN Reason Stop Dose Admin Acetaminophen 650 mg 04/13/20 23:06 04/14/20 20:43 Tylenol PO 650 mg Q6H PRN Administration fver Alprazolam 1 mg 04/14/20 11:21 04/15/20 23:00 Xanax PO 1 mg TID PRN Administration stress Aspirin 81 mg 04/14/20 09:00 04/16/20 09:16 Aspirin Ec PO 81 mg DAILY JL Administration Bumetanide 1 mg 04/14/20 09:00 04/16/20 09:16 Bumex PO 1 mg DAILY JL Administration Digoxin 125 mcg 04/14/20 09:00 04/16/20 09:16 Lanoxin PO 125 mcg DAILY JL Administration Enoxaparin Sodium 40 mg 04/13/20 23:06 04/15/20 23:00 Lovenox SUBCUT 40 mg Q24H JL Administration Gabapentin 300 mg 04/14/20 09:00 04/16/20 16:55 Neurontin PO 300 mg QID JL Administration Vancomycin HCl 1,000 mg/ 250 mls @ 250 mls/hr 04/14/20 00:00 04/16/20 16:54 Sodium Chloride IV 250 mls/hr Q8H JL Administration Protocol As Directed Levofloxacin 750 mg 04/14/20 00:58 04/16/20 05:41 Levaquin PO 750 mg DAILY@0600 JL Administration Protocol Levothyroxine Sodium 125 mcg 04/14/20 09:00 04/16/20 09:17 Synthroid PO 125 mcg DAILY JL Administration Lisinopril 2.5 mg 04/14/20 09:00 04/16/20 09:17 Prinivil PO 2.5 mg DAILY JL Administration Metoprolol Tartrate 25 mg 04/14/20 09:00 04/16/20 16:56 Lopressor PO 25 mg BID JL Administration Ondansetron HCl 4 mg 04/15/20 21:05 04/16/20 16:05 Zofran IVP 4 mg Q6H PRN Administration NAUSEA AND VOMITING Oxycodone/Acetaminophen 1 tab 04/14/20 11:23 04/16/20 14:22 Percocet 10-325 Mg PO 1 tab Q4H PRN Administration Pain Senna/Docusate Sodium 1 tab 04/14/20 09:00 04/16/20 09:16 Senna-S PO 1 tab DAILY JL Administration Tamsulosin HCl 0.4 mg 04/14/20 21:00 04/15/20 21:25 Flomax PO 0.4 mg BEDTIME JL Administration PFSH Acute PFSH: Medical History Acute on chronic diastolic (congestive) heart failure Arrhythmia Chronic anemia CKD (chronic kidney disease) 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 coli infection History of thyroid cancer Hypertension Hypothyroidism Lower urinary tract symptoms Morbid obesity Obstructive sleep apnea Pacemaker Prostate cancer Prostate cancer Recurrent UTI Urinary incontinence Urolithiasis Surgical History H/O surgical biopsy pancreas History of gastric bypass History of parathyroidectomy History of permanent cardiac pacemaker placement History of spinal surgery MULTIPLE LOWER SPINE SURGERY History of thyroidectomy Hx of tonsillectomy Status post open reduction with internal fixation (ORIF) of fracture of ankle Family History Sister Cancer Father , at age 73 CAD (coronary artery disease) Mother , at age 76 Alzheimer's dementia Social History Smoking and tobacco status: never smoked Alcohol intake: former Adopted: No Caregiver/support person: No Lives independently: No Household members: spouse Marital status: Current occupational status: retired History of recent travel: No Vitals/I&O/Wt Last Vital Signs Temp 98.4 F 04/16/20 16:00 Pulse 71 04/16/20 16:00 Resp 16 04/16/20 16:00 BP 106/63 04/16/20 16:00 Pulse Ox 93 04/16/20 16:00 04/16/20 04/16/20 04/16/20 06:59 14:59 22:59 Intake Total 450 / 2181 1030 / 1030 240 / 1270 Output Total 1375 / 2625 900 / 900 600 / 1500 Balance -925 / -444 130 / 130 -360 / -230 Physical Exam Narrative: EXAM NARRATIVE: GEN: Awake, alert and oriented, no acute distress HEENT: Nc/AT, NC in place CVS: S1S2 N RS: CTA B/L Abd: Soft, nt/nd , bs+ GLOBAL LOGISTICS ANALYST: no focal neuro deficits Urinary Catheter Management^: Melendez: Cath Placed During This Visit: yes Urinary Catheter Date of Insertion: 04/13/20 Urinary Catheter Time of Insertion: 17:43 Data Micro: Micro: Microbiology 04/16/20 10:32 Blood Culture - Pr eliminary Blood SPECIMEN [facility] 04/16/20 10:29 Blood Culture - Pr eliminary Blood SPECIMEN [facility] 04/13/20 17:00 Blood Culture - Pr eliminary Blood Gram positive r od Gram positive c occi A&P Assessment and plan (1) Gram-positive cocci bacteremia: - currently / blood culture positive for GPC and GPR from 04/12 - Will discuss preliminary gram stain, coagulase and cx findings with microbiology technicians in am - Given that GPC and GPR both noted on 1 of 4 cx, this is more likely to represent contamination rather than true infection. Rpt blood cx thus far preliminary negative -Patient is otherwise clinically well appearing - Chest infiltrates noted on CT have been reveiwed extensively incl CT scans from current admission, oct 2019 and also from 04/2019. His B/L pulmonary infiltrates appeasr to be more chronic and waxing and waning in nature along with noted possible prior granulomatous disease in liver and spleen and some long standing mediastinal lymphadenopathy. Overal favor a more chronic nature of these infiltrates- differentials would include BELEN (no acute intervention for the same) vs recurrent aspiration. Swallow study/ Ba swallow from 12/2018 with some laryhngeal penetration though no yahaira aspiration. May benefit from repeat swallow assessment. Low grade fever + CT findings could alternately be help desk representative of viral URI with pneumonitis, no convinving evidence of consolidation. COVID testing negative. Agree with stopping broad spectrum abx at this time and following blood cultures to completion. Status: Acute (2) Community acquired pneumonia: Status: Acute (3) History of permanent cardiac pacemaker placement: Status: Acute Consult Attestations Medical Necessity Statement: per admitting team Coding Level of Care Code Acute Multicut Line Operator for [facility] Diagnoses Gram-positive cocci bacteremia R78.81 Community acquired pneumonia J18.9 History of permanent cardiac pacemaker placement Z95.0
[2020-04-16] MEDS: tamsulosin 0.4 mg Capsule PO (20:12)
[2020-04-16] MEDS: enoxaparin 40 mg/0.4 mL Syringe SUBCUT (22:35)
[2020-04-17] VITALS (9 sets, daily range): BP systolic 104–130; BP diastolic 61–77; PULSE 69–72; RESP 18–20; TEMP 36.3–36.8; O2SAT 93–98
[2020-04-17] MEDS: vancomycin 1,000 MG in sodium chloride 0.9% 250 ML 250 MG IV (00:44)
[2020-04-17] MEDS: oxyCODONE-APAP 10-325 mg Tablet 1 TAB PO (03:59)
[2020-04-17 04:36] LABS: Basophils % 0.6 %; Eosinophils # 0.4 10^3/uL (0.0-0.8); Eosinophils % 7.1 %; Hematocrit 31.7 % (42.0-52.0); Hemoglobin 9.9 g/dL (11.7-16.6); Lymphocytes # 1.2 10^3/uL (0.8-4.8); Lymphocytes % 22.7 %; Mean Corpuscular HGB Conc 31.2 g/dL (30.0-36.0); Mean Corpuscular Hemoglobin 30.2 pg (28.0-34.0); Mean Corpuscular Volume 96.6 fL (80-94); Mean Platelet Volume 10.1 fL (7.4-10.4); Monocytes # 0.5 10^3/uL (0.2-0.9); Neutrophils # 3.07 10^3/uL (1.8-7.7); Nucleated Red Blood Cells % 0 %; Platelet Count 209 10^3/cmm (130-400); Red Blood Count 3.28 10^6/uL (4.1-5.3); Red Cell Distribution Width 15.8 % (12.1-15.1); White Blood Count 5.2 10^3/uL (4.0-10.0)
[2020-04-17 04:56] LABS: Alanine Aminotransferase 15 U/L (0-41); Alkaline Phosphatase 59 IU/L (40-130); Aspartate Amino Transferase 17 U/L (0-40); Blood Urea Nitrogen 15 mg/dL (8-23); Calcium 8.6 mg/dL (8.5-10.5); Carbon Dioxide 31 mmol/L (22-29); Chloride 104 mmol/L (98-107); Globulin 2.8 g/dL (1.3-4.6); Glucose 87 mg/dL (65-115); Osmolality Calculated 288 mOsm/kg (285-295); Sodium 141 mmol/L (136-145); Total Bilirubin 0.3 mg/dL (0.15-1.2); Total Protein 5.8 g/dL (6.6-8.7)
[2020-04-17] MEDS: bumetanide 1 mg Tablet PO (09:14)
[2020-04-17] MEDS: levothyroxine 125 mcg Tablet PO (09:14)
[2020-04-17] MEDS: lisinopril 2.5 mg Tablet PO (09:14)
[2020-04-17] MEDS: ondansetron 2 mg/ML SDV 2 mL 4 MG IVP (09:14)
[2020-04-17] MEDS: aspirin 81 mg EC Tablet PO (09:14)
[2020-04-17] MEDS: gabapentin 300 mg Capsule PO (09:15)
[2020-04-17] MEDS: digoxin 125 mcg Tablet PO (09:15)
[2020-04-17] MEDS: metoprolol tartrate 25 mg Tablet PO (09:15)
[2020-04-17] MEDS: sennosides-docusate Tablet 1 TAB PO (09:15)
--- NOTE | 2020-04-17 10:29 | FL_ITS ---
WS: [id number] MODIFIED BARIUM SWALLOW TECHNIQUE: Modified barium swallow with speech therapy using multiple consistencies. FLUOROSCOPY TIME: 3.1 minutes. CLINICAL INFORMATION: Other dysphagia COMPARISON: None. FINDINGS: Multiple consistencies utilized. Small amount of penetration with thin liquids. No yahaira aspiration. Delayed oropharyngeal phase with early spillage and pooling in the vallecula. No difficulties with ba rium tablet. FL/FL barium swallow modifd [id number] IMPRESSION: 1. Small amount of penetration with thin liquids. No yahaira aspiration. 2. Delayed oropharyngeal phase with early spillage and pooling in the vallecul a. 3. No difficulties with the barium tablet.
--- NOTE | 2020-04-17 15:39 | PM.DCS ---
Discharge Providers Date of Admission: 04/13/20 21:18 Date of Discharge: April 17, 2020 Attending Provider at Admission: Brenda Vazquez MD Attending Provider at Discharge: Kj Mejia Primary Care Provider: Jacob Valladares DO Diagnoses at Discharge Discharge Diagnosis (1) Gram-positive cocci bacteremia: Status: Acute (2) Community acquired pneumonia: Status: Acute (3) History of permanent cardiac pacemaker placement: Status: Acute Reason for Visit Reason for Visit: AMS Hospital Course Hospital Course: Very pleasant 74-year-old gentleman with extensive past medical history including recurrent pneumonia, CHF, chronic nasal cannula oxygen 4 L at home, PAOLA, non-Hodgkin's lymphoma, medullary thyroid cancer, prostate cancer, pancreatic mass for which he is undergoing current diagnosis, however, so far several nondiagnostic biopsies, was admitted on 04/13 after episodes of altered mental status, low-grade fever, with noted community-acquired pneumonia for which he was started on broad-spectrum antibiotic coverage, as well as diuresis for acute diastolic heart failure exacerbation. Due to prior history of staph epidermidis bacteremia in October, without identified source, for which he underwent 6 weeks of empiric treatment with vancomycin IV, blood cultures were repeated, and with noted several organisms In 1/4 bottles, with gram-positive coccus and phi. With concern for possible recurrence of bacteremia, blood cultures were repeated. There is been no growth so far on blood culture from 04/16. These cultures will need to be followed up on completion. He otherwise had resolution of fevers, had no significant respiratory symptoms to suggest ongoing infection, and on review of his prior imaging infiltrate visible on CTA on presentation and right lung, has been present in a similar location previously cleaned back in October. Swallow study was repeated by modified barium evaluation, and with finding of small amount of penetration with thin liquids, no yahaira aspiration. Due to concern that he may have some episodes of microaspiration, possibly contributing to his either pneumonitis,/aspiration pneumonia, discussed results with him, with recommendations for strict aspiration precautions, and consideration that liquids to be on the safer side may need to be thickened to nectar thick. Will refer him for additional follow-up with outpatient speech therapy. He was assessed by infectious disease specialist with regards to possible recurrence of bacteremia in the setting of pacemaker, as well as bilateral ankle hardware, and prior bacteremia. With multiple organisms noted on blood culture, also only in 1/4 bottles, without growth, is deemed most likely contamination. Final cultures will need to be followed up, and he will follow-up in outpatient clinic. At this time since he is doing well, all antibiotics were discontinued, and he is wanting to return home. In addition to aforementioned follow-up, as well as his PCP, he is encouraged to also follow-up with his oncologist in [place], as well as here with Dr. La with regards to continued assessments of the pancreatic mass. His lower extremity edema, still congestive heart failure have significantly improved. He is back to baseline oxygen requirement by nasal cannula, and so diuretic will be switched to Lasix as needed at home. Please continue follow-up with regards to his other chronic conditions. Physical Exam Const: COMMON NORMALS: no acute distress and patient oriented x3 NUTRITIONAL APPEARANCE: obese HENMT: COMMON NORMALS: oropharynx normal Neck/C-Spine: COMMON NORMALS: no JVD Chest: OTHER: Pacemaker pocket appears healthy. Old well-healed scar. Resp: COMMON NORMALS: normal respiratory effort and clear to auscultation bilaterally AUSCULTATION: clear to auscultation bilaterally Cardio: COMMON NORMALS: no JVD, regular rhythm, S1 normal heart sound present, S2 normal heart sound present and No murmurs present (Cardio) RHYTHM: regular rhythm HEART SOUNDS: S1 normal heart sound present and S2 normal heart sound present GI: COMMON NORMALS: Normal to inspection, nondistended, normoactive bowel sounds present, Soft to palpation and non-tender PALPATION: Yes Soft to palpation Extremity: COMMON NORMALS: no joint enlargement and no pedal edema Neuro: COMMON NORMALS: patient oriented x3 and moves all extremities Skin: COMMON NORMALS: no rashes or lesions noted GENERAL SKIN EXAM: no rashes or lesions noted OTHER: No splinter hemorrhages on nails, or other skin changes. Urinary Catheter Management^: Melendez: Cath Placed During This Visit: yes Urinary Catheter Date of Insertion: 04/13/20 Urinary Catheter Time of Insertion: 17:43 Discharge Data Data Completed and Pending: Completed Studies During Hospitalization Category Date Time Status CT angio chest PE protcl 62030 Urge nt Cat Scan 04/13/20 19:[address] head wo con* 7 0450 Stat Cat Scan 04/13/20 19:02 Completed Modified barium s wallow [FL barium swallow modifd 742 30 Exams 04/17/20 10:29 Completed ] Routine XR chest 1V aron ble 35415 Stat Exams 04/13/20 16:42 Completed Pending at discharge Category Date Time Status Blood Culture Sta t Lab 04/13/20 17:06 Results Blood Culture Sta t Lab 04/16/20 10:32 Results Complete Blood Co unt w/Auto AM LABS Lab 04/18/20 04:00 Ordered Comprehensive Met abolic Panel AM LA BS Lab 04/18/20 04:00 Ordered Sputum Culture an d Gram Stain Stat Lab 04/13/20 23:06 Uncollected Labs from last 24 hours 04/17/20 04/17/20 04:12 04:12 WBC 5.2 RBC 3.28 L Hgb 9.9 L Hct 31.7 L MCV 96.6 H MCH 30.2 MCHC 31.2 RDW 15.8 H Plt Count 209 MPV 10.1 Neut % (Auto) 59.0 Lymph % (Auto) 22.7 [place] % (Auto) 10.0 Eos % (Auto) 7.1 Baso % (Auto) 0.6 Neut # (Auto) 3.07 Lymph # (Auto) 1.2 [place] # (Auto) 0.5 Eos # (Auto) 0.4 Baso # (Auto) 0.0 Nucleated RBC % (a uto) 0 Nucleated RBCs # 0.0 Sodium 141 Potassium 4.0 Chloride 104 Carbon Dioxide 31 H Anion Gap 10.0 BUN 15 Creatinine 1.3 H GFR Calculation Not Reportable Glucose 87 Calculated Osmolal ity 288 Calcium 8.6 Total Bilirubin 0.3 AST 17 ALT 15 Alkaline Phosphata se 59 Total Protein 5.8 L Albumin 3.0 L Globulin 2.8 Vitals: Last Vital Signs Temp 98.1 F 04/17/20 11:02 Pulse 69 04/17/20 11:02 Resp 18 04/17/20 11:02 BP 130/77 04/17/20 11:02 Pulse Ox 98 04/17/20 11:02 Discharge Plan Discharge Patient Disposition: Home Condition: Stable Prescriptions: New furosemide [Lasix] 40 mg tablet 40 mg PO DAILY PRN (Reason: edema) Qty: 30 RF: 0 Continued docusate sodium 100 mg capsule 100 mg PO BID PRN (Reason: UNKNOWN) RF: 0 ferrous sulfate 325 mg (65 mg iron) tablet 325 mg PO BID RF: 0 metoprolol succinate 50 mg tablet extended release 24 hr 150 mg PO BEDTIME RF: 0 bisacodyl 5 mg tablet 5 mg PO DAILY PRN (Reason: UNKNOWN) RF: 0 methenamine hippurate 1 gram tablet 1 gm PO BID Qty: 60 RF: 12 ascorbic acid (vitamin C) 1,000 mg tablet 1,000 mg PO BID RF: 0 digoxin 125 mcg (0.125 mg) tablet 125 mcg PO DAILY RF: 0 alprazolam 1 mg Tablet 1 mg PO TID PRN (Reason: stress) RF: 0 levothyroxine [Synthroid] 125 mcg Tablet 125 mcg PO DAILY RF: 0 tamsulosin 0.4 mg Capsule 0.4 mg PO BEDTIME RF: 0 amlodipine 5 mg Tablet 5 mg PO DAILY RF: 0 Hold Instructions: Resume on 12/19/19. add based on outpatient blood pressures and until seen by physician aspirin 81 mg Tablet,Delayed Release (Dr/Ec) 81 mg PO DAILY RF: 0 oxycodone-acetaminophen 10-325 mg Tablet 1 tab PO Q4H PRN (Reason: Pain) RF: 0 gabapentin 800 mg Tablet 800 mg PO QID RF: 0 duloxetine 60 mg Capsule,Delayed Release(Dr/Ec) 60 mg PO DAILY RF: 0 cholecalciferol (vitamin D3) [Vitamin D3] 125 mcg (5,000 unit) Tablet 125 mcg PO DAILY RF: 0 Discharge Orders: Discharge Order (Routine); Ordered 04/17/20 Ordered By: Kj Mejia Other Ambulatory Orders: Speech Language Pathology Eval and Treat Outpatient (Order) Timeframe: 1 Week Facility: [facility] - Location: Speech Therapy [facility] Ordered By: Kj Mejia Referrals: [facility] [Outside] Jessica Martines MD [Hospitalist] - 2 weeks (ID clinic. Surgical services phone number - [phone]) Jacob Vallaadres DO [Primary Care Provider] - 04/29/20 1:50 pm Horacio La MD [Staff Physician] - 1 week (Pancreatic mass) Discharge Diet: Advance as tolerated Discharge Activity: As per PT/OT instructions and Oxygen as instructed Activity Restrictions/Additional Instructions: As we discussed due to micropenetration of thin liquids like water, tea, etc during swallowing, please maintain strict aspiration precautions, always be attention to each bite or sip of water. Always eat only while sitting upright, maintain chin tuck, take small bites and sips at a time. Work with speech therapy at home for additional recommendations. Consider thickening liquids to nectar thick. If you experience recurrent fevers, worsening shortness of breath, cough, or other abnormal symptoms, please seek medical attention. Discharge Attestations Time Spent in Discharge Care*: greater than 30 min Quality Metrics Clinical Quality Measures During this hospital stay, did patient experience: None Coding Level of Care Code Acute [employer]er for [facility] Fwd Diagnoses Gram-positive cocci bacteremia R78.81 Community acquired pneumonia J18.9 History of permanent cardiac pacemaker placement Z95.0
--- NOTE | 2020-04-17 22:13 | P.PN_ITS ---
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 Discussed with micro lab that there appear to be 2 CoNs and 1 GPR colony. scant growth on plates. Further cx remains negative to date. - this is more likely to represent contamination rather than true infection. Rpt blood cx thus far preliminary negative -Patient is otherwise clinically well appearing - Agree with stopping broad spectrum abx at this time and following blood cultures to completion. F/up in ID clinic in 2-3 weeks Status: Acute (2) Community acquired pneumonia: Status: Acute (3) History of permanent cardiac pacemaker placement: Status: Acute Attestations Medical Necessity Statement*: per admitting Coding Level of Care Code Acute Court Magistrate for [facility] Fwd Diagnoses Gram-positive cocci bacteremia R78.81 Community acquired pneumonia J18.9 History of permanent cardiac pacemaker placement Z95.0
== END 2020-04-17 17:02 | disposition home or self-care (01) | DRG 193 ==
LOC: ER 16:51 → MEDSURG 22:06
PROVIDERS: Internal Medicine; Admitting Provider Internal Medicine; Emergency Provider Emergency Medicine; PCP Electrodiagnostic Medicine; Visit Provider Internal Medicine
DX: J18.9 Pneumonia, unspecified organism (principal); I50.33 Acute on chronic diastolic (congestive) heart failure; Z68.41 Body mass index [BMI] 40.0-44.9, adult; R78.81 Bacteremia; I13.0 Hypertensive heart and chronic kidney disease with heart failure and stage 1 through stage 4 chronic kidney disease, or unspecified chronic kidney disease; Z85.850 Personal history of malignant neoplasm of thyroid; Z99.81 Dependence on supplemental oxygen; E66.01 Morbid (severe) obesity due to excess calories; D64.9 Anemia, unspecified; Z95.0 Presence of cardiac pacemaker; G47.33 Obstructive sleep apnea (adult) (pediatric); Z85.46 Personal history of malignant neoplasm of prostate; Z85.848 Personal history of malignant neoplasm of other parts of nervous tissue; Z79.82 Long term (current) use of aspirin; E03.9 Hypothyroidism, unspecified; N18.9 Chronic kidney disease, unspecified
CPT/HCPCS: 12345; 36415; 36600; 51702; 70450; 71045; 71275; 74230; 80048; 80053; 80162; 80202; 81003; 82803; 83605; 83880; 84145; 84443; 84484; 85025; 85651; 86140; 86403; 87040; 87077; 87205; 87449; 87635; 87641; 87804; 92611; 93005; 94660; 96372; 96374; 96375; 99283; 99284; J0456; J0610; J0696; J1170; J1650; J1940; J2270; J2405; J2543; J3370; J7040; J7050; Q9967

== ENCOUNTER 2020-04-26 08:56 | Outpatient (CLI) | payer MEDICARE, BC, SELFPAY ==
[2020-04-26 10:49] LABS: Basophils % 0.3 %; Eosinophils # 0.4 10^3/uL (0.0-0.8); Eosinophils % 5.7 %; Hematocrit 35.2 % (42.0-52.0); Hemoglobin 10.8 g/dL (11.7-16.6); Lymphocytes # 1.2 10^3/uL (0.8-4.8); Lymphocytes % 20.1 %; Mean Corpuscular HGB Conc 30.7 g/dL (30.0-36.0); Mean Corpuscular Hemoglobin 30.3 pg (28.0-34.0); Mean Corpuscular Volume 98.6 fL (80-94); Mean Platelet Volume 9.7 fL (7.4-10.4); Monocytes # 0.5 10^3/uL (0.2-0.9); Monocytes % 7.9 %; Neutrophils # 4.04 10^3/uL (1.8-7.7); Neutrophils % 65.5 %; Nucleated Red Blood Cells % 0 %; Platelet Count 264 10^3/cmm (130-400); Red Blood Count 3.57 10^6/uL (4.1-5.3); Red Cell Distribution Width 15.9 % (12.1-15.1); White Blood Count 6.2 10^3/uL (4.0-10.0)
[2020-04-26 11:18] LABS: Ferritin 208 ng/mL (30-400); Iron 58 ug/dL (59-158); Percent Saturation 26.3 % (20-50); Total Iron Binding Capacity 220 mcg/dl; Unsaturated Iron Binding 162 ug/dL (112-347)
[2020-04-26 11:31] LABS: Vitamin B12 217 pg/mL (232-1245)
--- NOTE | 2020-04-26 12:14 | ONC FU_ITS ---
Dr. La follow up note Patient: Abdullahi Maurice Unit #: [id number]: 1945 Dicatated By: Horacio La M.D.Date of Visit:Apr 26, 2020 Onc Med Follow-up/Prog Note History of Present Illness: Mr. Abdullahi Maurice, 74 year-old gentleman with history of non-Hodgkin lymphoma diagnosed in 2009 , at that time underwent systemic chemotherapy, presumably R-CHOP, achieved complete remission , which was again confirmed with recently done CT PET scan . As per patient he underwent yearly CT PET scan on 05/27/2018 for history of lymphoma and there was an incidental finding showed increased activity in left lobe of thyroid for which he was referred to ENT and on 06/15/2018 he underwent ultrasound-guided FNA of left thyroid nodule which showed medullary thyroid carcinoma. Biopsy from right thyroid nodule was benign.. As per ENT evaluation total thyroidectomy with cervical lymph node dissection was Recommended and patient underwent thyroidectomy with cervical lymph node dissection at [facility] and now being followed by endocrinology there Patient has history of gastric bypass for weight reduction,Which was done about 20 years ago Patient lost follow-up and never came back since 07/11/2018 since then he was found to have pancreatic tail mass seen on CT scan of abdomen pelvis done on 06/20/2019, as per patient he was evaluated by Dr. Gagnon in [place] and he was referred to who did biopsy of the pancreatic mass and result was Nondiagnostic Then again on January 23, 2020 he underwent endoscopic ultrasound guided FNA of pancreatic mass and findings were consistent with pseudocyst as cytology showed no evidence of malignancy Underwent CT PET scan done on December 16, 2019 showed no evidence of recurrent or residual malignancy but incidental finding of central necrotic 4.9 x 4.0 cm pancreatic tail mass with SUV of 13.2, subsequently patient underwent EUS guided FNA of pancreatic tail on January 23, 2020 which showed no evidence of malignancy and as per Dr. Gagnon's note, impression was pseudocyst and follow-up CT scan of abdomen in 3 months was planned Came for follow-up, denies any specific complaints, no fever chills, no nausea or vomiting no diarrhea constipation, no night sweats no jaundice, no melena or hematochezia patient was recently admitted to hospital on April 13, 2020 with gram-positive bacteremia and community-acquired pneumonia treated with antibiotics and his labs done on April 17, 2020 showed white blood count 5.2 hemoglobin 9.9 hematocrit 31.7 platelets 209,000 compared to hemoglobin 10.7 g on March 06, 2020 and 12 g on December 13, 2019, patient is on oral iron chronically Medications: Acetaminophen 2 Tablet (of 325 mg) Oral PRN, amLODIPine Besylate 1 Tablet (of 5 mg) Oral daily, Aspirin 1 Tablet (of 81 mg) Oral daily, Benadryl Allergy 2 Tablet (of 25 mg) Oral daily, Digox 1 Tablet (of 125 mcg) Oral daily, DULoxetine HCl 1 Capsule (of 60 mg) Capsule Delayed Release Particles Oral at bedtime, Flonase 2 Reedy(s) (of 50 mcg/act) Suspension Nasal b.i.d., Gabapentin 1 Tablet (of 800 mg) Oral four times a day, Ipratropium-Albuterol 1 Vial(s) Solution Inhalation four times a day, Lasix 1 Tablet (of 20 mg) Oral daily, Lisinopril 1 Tablet (of 2.5 mg) Oral daily, Methenamine Hippurate 1 Tablet (of 1 g) Oral b.i.d., Metoprolol Tartrate 1 Tablet (of 50 mg) Oral at bedtime, NYSTOPICAL 2 Tablet (of 220226 Units/g) Oral daily, Oxycodone-Acetaminophen 1 Tablet (of 10-325 mg) Oral q 4 hours, Polyethylene Glycol (17 g) Powder daily, QUEtiapine Fumarate 1 Tablet (of 50 mg) Oral at bedtime, Sildenafil Citrate 1 (20 mg) Tablet Oral daily PRN, SM Vitamin C 1 Tablet (of 1000 mg) Oral daily, Tamsulosin HCl 1 Capsule (of 0.4 mg) Oral daily, Vitamin D3 1 Tablet (of 5000 Units) Oral daily, Xanax 1 Tablet (of 1 mg) Oral b.i.d. PRN Allergies: No Known Allergies. Review of Systems: Constitutional - Appetite is fair and weight is decreasing. No fever, chills, hot flashes, or night sweats. Energy level is poor, ENMT - No sinus congestion/drainage. No mouth sores. No sore throat or difficulty swallowing, Hematologic/Lymphatic - No abnormal bruising or bleeding, Respiratory - Occasional shortness of breath. No cough. No pleuritic pain or hemoptysis, Cardiovascular - No angina pain. No palpitations, Gastrointestinal - No nausea or vomiting. No heartburn or acid reflux. No diarrhea or constipation. No blood in the stool or black stools, Genitourinary (M) - No dysuria or hematuria. No urinary frequency. No urgency or incontinence, Musculoskeletal - No joint or bone pain, Neurologic - No headache or dizziness. No numbness/paresthesias or other focal neurologic symptoms, Psychiatric - No anxiety or depression. No insomnia. Vital Signs: Performed on Apr 26, 2020 09:44 Height - 76.00 in Weight - 323.0 lbs (LOW) BSA - 2.72 sq.m BMI - 39.32 (HIGH) Temperature - 97.3 F (LOW) Pulse - 80 /min Respiration - 24 /min BP - 111/41 mm(hg) O2 Sat - 100 % Pain - 9 Performance Status: 2 - Ambulatory/capable of all self-care, unable to perform any work activities. Up and about more than 50% of waking hours. (ECOG) Physical Examination: ENMT - No mouth sores, no thrush, no jaundice, Respiratory - Poor air entry otherwise clear, Cardiovascular - Regular rate and rhythm of heart, Abdomen - Soft, bowel sounds, Extremities - 1+ edema bilaterally. Lab/Imaging: Test performed on Apr 17, 2020 04:12 Glucose 87 mg/dL BUN 15 mg/dL Creatinine 1.3 mg/dL Cr Clearance (Est) 103.3100 mL/min Sodium 141 mmol/L Potassium 4.0 mmol/L Chloride 104 mmol/L CO2 31 mmol/L Calcium 8.6 mg/dL Protein, Total 5.8 g/dL Albumin 3.0 g/dL Globulin 2.8 g/dL Bilirubin, Total 0.3 mg/dL Alkaline Phosphatase 59 IU/L AST (SGOT) 17 IU/L ALT (SGPT) 15 IU/L WBC 5.2 10^9/L RBC 3.28 10^12/L HGB 9.9 g/dL HCT 31.7 % MCV 96.6 fl MCH 30.2 pg MCHC 31.2 g/dL RDW 15.8 % Platelet Count 209 10^9/L MPV 10.1 fL Neutrophils (Gran) 3.07 10^9/L Lymphocytes 1.2 10^9/L Monocytes 0.5 10^9/L Eosinophils 0.4 10^9/L Basophils 0.0 10^9/L Manual Lymphocytes 22.7 % Manual Monocytes 10.0 % Manual Eosinophils 7.1 % Manual Basophils 0.6 % Test performed on Mar 06, 2020 14:05 Anion Gap 13.2 Neutrophil % 51.7 % Lymphocyte % 28.6 % Monocyte % 9.7 % Eosinophil % 8.7 % Basophils % 1.0 % NRBC % 0 % Test performed on Dec 13, 2019 05:25 Digoxin (Lanoxin) 0.41 ng/mL Impression: Medullary thyroid carcinoma per ultrasound guided FNA of left thyroid nodule on 06/15/2018.As per patient he underwent thyroidectomy/cervical lymphadenopathy done at [facility],Now being followed by ENT/endocrinology at [facility] History of non-Hodgkin lymphoma diagnosed in 2009 status post presumably R-CHOP, now in remission. Reconfirmed with CT PET scan done on May 27 which showed no evidence of recurrence except incidental finding of left thyroid nodule History of gastric bypass surgery for weight loss About 20 years ago Newly diagnosed pancreatic tail mass per CT scan of abdomen done on 06/20/2019 status post biopsy Was nondiagnostic,Subsequently underwent EUS guided FNA on January 23, 2020, cytology came back negative and findings were consistent with pseudocyst CT PET scan was done on December 14, 2019 which showed no evidence of recurrence or residual malignancy, but incidental finding of centrally necrotic 4.9 x 4 cm pancreatic tail mass with SUV of 13.2 representing malignancy, as mentioned above patient underwent EUS guided FNA on January 23, 2020 which showed no evidence of malignancy and EUS findings were consistent with pseudocyst now being followed by Dr. Gagnon in [place] Plan: Discussed with patient regarding his labs done on April 17, 2020 which showed progressive normocytic anemia etiology unclear could be due to malabsorption but less likely, as patient underwent gastric bypass about 20 years ago and has maintained his hemoglobin in normal range until December 13, 2019. Other possibility could be chronic GI blood loss or anemia of chronic disease, considering his age underlying myelodysplasia cannot be ruled out. At this point we will repeat his CBC and if it shows anemia, consider iron studies, B12 and folic acid level, patient is on chronic iron on the other hand if is normal, will see him on as-needed basis As far as pancreatic mass seen on CT PET scan and earlier is concerned, patient recently underwent EUS guided FNA on January 23, [address] Stover in [place] and cytology showed no evidence of malignancy, as per Dr. Gagnon's note, findings were consistent with pseudocyst. And CT PET scan done in November 2019 showed no evidence of malignancy otherwise. Signed By: Horacio La M.D. <<Signature on File>>
== END 2020-04-26 08:57 | disposition home or self-care (01) ==
LOC: ONCMED 09:00
PROVIDERS: PCP Electrodiagnostic Medicine; Visit Provider Internal Medicine Hematology & Oncology
DX: C73 Malignant neoplasm of thyroid gland (principal); F32.9 Major depressive disorder, single episode, unspecified; I10 Essential (primary) hypertension; I48.91 Unspecified atrial fibrillation; K21.9 Gastro-esophageal reflux disease without esophagitis; Z86.718 Personal history of other venous thrombosis and embolism; Z85.72 Personal history of non-Hodgkin lymphomas; D50.9 Iron deficiency anemia, unspecified; D51.9 Vitamin B12 deficiency anemia, unspecified
CPT/HCPCS: 82607; 82728; 83540; 83550; 85025; 99214